=== PATIENT | male | born 1940 | race Caucasian/White ===

== ENCOUNTER → 2016-06-27 | Outpatient (REF) | payer MEDICARE, OTHER ==
[~2016-06-27] MED LIST: ALPR0.25 PO; AMLO5TAB2 PO; INFL10VL IV; LISI5TAB PO; METH2.5T PO; OMEP20CA3 PO; PRED5TAB PO; SAW500CA7 PO; TYLE325T5 PO; VITA200016 PO
[2016-06-27 10:28] LABS: INR 2.41
== END ==
LOC: M LABDRWAD 10:05
PROVIDERS: ATTEND Internal Medicine Cardiovascular Disease
DX: I48.0 Paroxysmal atrial fibrillation (principal); Z51.81 Encounter for therapeutic drug level monitoring; Z79.01 Long term (current) use of anticoagulants

== ENCOUNTER → 2016-06-27 | Outpatient (REF) | payer MEDICARE, OTHER ==
[2016-06-27 10:35] LABS: ALBUMIN 4.1 GM/DL (3.2-5.2); ALBUMIN/GLOBULIN RATIO 1.05 (1.00-1.93); BILIRUBIN,TOTAL 0.8 MG/DL (0.2-1.0); CALCIUM LEVEL 8.9 MG/DL (8.8-10.2); CREATININE FOR GFR 1.28 MG/DL (0.70-1.30); GLOMERULAR FILTRATION RATE 58.6 (>42); POTASSIUM SERUM 4.4 MEQ/L (3.5-5.1)
== END ==
LOC: M LABDRWAD 10:06
PROVIDERS: ATTEND Family Medicine
DX: E78.5 Hyperlipidemia, unspecified (principal); I48.0 Paroxysmal atrial fibrillation; Z51.81 Encounter for therapeutic drug level monitoring; Z79.01 Long term (current) use of anticoagulants

== ENCOUNTER → 2016-07-10 | Outpatient (REF) | payer MEDICARE, OTHER ==
[2016-07-10 13:02] LABS: ALT/SGPT 24 U/L (12-78); AST/SGOT 19 U/L (15-37); CREATININE FOR GFR 1.15 MG/DL (0.70-1.30); GLOMERULAR FILTRATION RATE > 60.0 (>42)
[2016-07-10 13:08] LABS: BASO % 0.4 % (0.0-1.0); EOS # 0.2 K/mm3 (0.0-0.50); EOS % 2.3 % (0.0-3.0); LYMPH # 2.2 K/mm3 (1.5-4.5); LYMPH % 32.6 % (24.0-44.0); MEAN CORPUSCULAR HEMOGLOBIN 33.4 pg (27.0-33.0); MEAN CORPUSCULAR HGB CONC 36.3 g/dl (32.0-36.5); MONO # 0.5 K/mm3 (0.0-0.8); MONO % 7.9 % (0.0-5.0); NEUTROPHILS # 3.7 K/mm3 (1.8-7.7); NEUTROPHILS % 54.2 % (36.0-66.0); RED CELL DISTRIBUTION WIDTH 13.7 % (11.5-14.5); WHITE BLOOD COUNT 6.9 K/mm3 (4.0-10.0)
== END ==
LOC: M LABDRWAD 12:20
PROVIDERS: ATTEND Physician Assistant
DX: Z51.81 Encounter for therapeutic drug level monitoring (principal); Z79.899 Other long term (current) drug therapy; L40.59 Other psoriatic arthropathy; L40.8 Other psoriasis

== ENCOUNTER → 2016-07-25 | Outpatient (REF) | payer MEDICARE, OTHER ==
[2016-07-25 09:36] LABS: MEAN CORPUSCULAR HEMOGLOBIN 32.9 pg (27.0-33.0); MEAN CORPUSCULAR HGB CONC 35.3 g/dl (32.0-36.5); RED CELL DISTRIBUTION WIDTH 15.7 % (11.5-14.5); WHITE BLOOD COUNT 5.8 K/mm3 (4.0-10.0)
[2016-07-25 09:49] LABS: INR 2.26
== END ==
LOC: M LABDRWAD 09:26
PROVIDERS: ATTEND Internal Medicine Cardiovascular Disease
DX: Z51.81 Encounter for therapeutic drug level monitoring (principal); Z79.01 Long term (current) use of anticoagulants; I48.0 Paroxysmal atrial fibrillation

== ENCOUNTER → 2016-08-22 | Outpatient (REF) | payer MEDICARE, OTHER ==
[2016-08-22 11:03] LABS: INR 2.64
== END ==
LOC: M LABDRWAD 10:29
PROVIDERS: ATTEND Internal Medicine Cardiovascular Disease
DX: Z79.01 Long term (current) use of anticoagulants (principal); I48.0 Paroxysmal atrial fibrillation

== ENCOUNTER → 2016-08-30 | Outpatient (REF) | payer MEDICARE, OTHER ==
[2016-08-30 12:50] LABS: FOLATE 18.7 NG/ML
== END ==
LOC: M LAB REF 12:09
PROVIDERS: ATTEND Family Medicine
DX: R43.0 Anosmia (principal)

== ENCOUNTER → 2016-09-04 | Outpatient (REF) | payer MEDICARE, OTHER ==
[2016-09-04 13:31] LABS: BASO % 0.4 % (0.0-1.0); EOS # 0.2 K/mm3 (0.0-0.50); EOS % 3.6 % (0.0-3.0); LYMPH # 1.9 K/mm3 (1.5-4.5); LYMPH % 41.5 % (24.0-44.0); MEAN CORPUSCULAR HEMOGLOBIN 32.5 pg (27.0-33.0); MEAN CORPUSCULAR HGB CONC 35.1 g/dl (32.0-36.5); MEAN CORPUSCULAR VOLUME 92.8 fl (80.0-96.0); MONO # 0.5 K/mm3 (0.0-0.8); MONO % 11.1 % (0.0-5.0); NEUTROPHILS # 1.8 K/mm3 (1.8-7.7); NEUTROPHILS % 40.4 % (36.0-66.0); RED CELL DISTRIBUTION WIDTH 16.5 % (11.5-14.5); WHITE BLOOD COUNT 4.5 K/mm3 (4.0-10.0)
[2016-09-04 13:45] LABS: ALBUMIN 3.8 GM/DL (3.2-5.2); ALT/SGPT 21 U/L (12-78); AST/SGOT 21 U/L (15-37); CREATININE FOR GFR 1.22 MG/DL (0.70-1.30); GLOMERULAR FILTRATION RATE > 60.0 (>42)
== END ==
LOC: M LABDRWAD 12:42
PROVIDERS: ATTEND Physician Assistant
DX: Z79.899 Other long term (current) drug therapy (principal)

== ENCOUNTER → 2016-09-18 | Outpatient (REF) | payer MEDICARE, OTHER ==
[2016-09-18 09:44] LABS: MEAN CORPUSCULAR HEMOGLOBIN 31.6 pg (27.0-33.0); MEAN CORPUSCULAR HGB CONC 34.8 g/dl (32.0-36.5); MEAN CORPUSCULAR VOLUME 90.9 fl (80.0-96.0); RED CELL DISTRIBUTION WIDTH 13.6 % (11.5-14.5); WHITE BLOOD COUNT 9.4 K/mm3 (4.0-10.0)
[2016-09-18 09:52] LABS: INR 3.39
== END ==
LOC: M LAB REF 09:33
PROVIDERS: ATTEND Internal Medicine Cardiovascular Disease
DX: Z79.01 Long term (current) use of anticoagulants (principal); I48.0 Paroxysmal atrial fibrillation

== ENCOUNTER → 2016-10-02 | Outpatient (REF) | payer MEDICARE, OTHER ==
[2016-10-02 09:38] LABS: INR 3.12
[2016-10-02 10:05] LABS: MEAN CORPUSCULAR HEMOGLOBIN 31.5 pg (27.0-33.0); MEAN CORPUSCULAR HGB CONC 35.2 g/dl (32.0-36.5); MEAN CORPUSCULAR VOLUME 89.6 fl (80.0-96.0); RED CELL DISTRIBUTION WIDTH 13.6 % (11.5-14.5); WHITE BLOOD COUNT 6.3 K/mm3 (4.0-10.0)
== END ==
LOC: M LABDRWAD 09:08
PROVIDERS: ATTEND Internal Medicine Cardiovascular Disease
DX: I48.0 Paroxysmal atrial fibrillation (principal); Z51.81 Encounter for therapeutic drug level monitoring; Z79.01 Long term (current) use of anticoagulants

== ENCOUNTER → 2016-10-02 | Outpatient (REF) | payer MEDICARE, OTHER ==
[2016-10-02 09:31] LABS: BASO % 0.1 % (0.0-1.0); EOS # 0.1 K/mm3 (0.0-0.50); LARGE UNSTAINED CELL # 0.1 K/mm3 (0.0-0.4); LYMPH # 1.7 K/mm3 (1.5-4.5); LYMPH % 25.6 % (24.0-44.0); MEAN CORPUSCULAR HEMOGLOBIN 31.5 pg (27.0-33.0); MEAN CORPUSCULAR HGB CONC 35.2 g/dl (32.0-36.5); MEAN CORPUSCULAR VOLUME 89.6 fl (80.0-96.0); MONO # 0.5 K/mm3 (0.0-0.8); MONO % 8.3 % (0.0-5.0); NEUTROPHILS % 63.1 % (36.0-66.0); PLATELET COUNT, AUTOMATED 213 k/mm3 (150-450); RED CELL DISTRIBUTION WIDTH 13.6 % (11.5-14.5); WHITE BLOOD COUNT 6.3 K/mm3 (4.0-10.0)
[2016-10-02 09:44] LABS: ALBUMIN 3.7 GM/DL (3.2-5.2); ALBUMIN/GLOBULIN RATIO 0.95 (1.00-1.93); ALKALINE PHOSPHATASE 86 U/L (45-117); ALT/SGPT 25 U/L (12-78); ANION GAP 9 MEQ/L (8-16); AST/SGOT 17 U/L (15-37); BLOOD UREA NITROGEN 17 MG/DL (7-18); CALCIUM LEVEL 8.7 MG/DL (8.8-10.2); CARBON DIOXIDE LEVEL 25 MEQ/L (21-32); CHLORIDE LEVEL 93 MEQ/L (98-107); CHOLESTEROL LEVEL 169 MG/DL (<200); CREATININE FOR GFR 1.06 MG/DL (0.70-1.30); GLOMERULAR FILTRATION RATE > 60.0 (>42); GLUCOSE, FASTING 88 MG/DL (83-110); POTASSIUM SERUM 4.9 MEQ/L (3.5-5.1); SODIUM LEVEL 127 MEQ/L (136-145); TOTAL PROTEIN 7.6 GM/DL (6.4-8.2); TRIGLYCERIDES LEVEL 79 MG/DL (<150)
== END ==
LOC: M LABDRWAD 09:10
PROVIDERS: ATTEND Family Medicine
DX: Z00.00 Encounter for general adult medical examination without abnormal findings (principal)

== ENCOUNTER → 2016-10-10 | Outpatient (REF) | payer MEDICARE, OTHER ==
[2016-10-10 11:32] LABS: INR 2.56
== END ==
LOC: M LABDRWAD 11:07
PROVIDERS: ATTEND Internal Medicine Cardiovascular Disease
DX: Z79.01 Long term (current) use of anticoagulants (principal); I48.0 Paroxysmal atrial fibrillation

== ENCOUNTER → 2016-10-17 | Outpatient (REF) | payer MEDICARE, OTHER ==
[2016-10-17 12:59] LABS: INR 2.68
== END ==
LOC: M LAB REF 12:21
PROVIDERS: ATTEND Internal Medicine Cardiovascular Disease
DX: Z79.01 Long term (current) use of anticoagulants (principal)

== ENCOUNTER → 2016-11-14 | Outpatient (REF) | payer MEDICARE, OTHER | LOC: M LABDRWAD 12:14 | PROVIDERS: ATTEND Family Medicine | DX: Z00.00 Encounter for general adult medical examination without abnormal findings (principal); Z51.81 Encounter for therapeutic drug level monitoring; Z79.01 Long term (current) use of anticoagulants; I48.0 Paroxysmal atrial fibrillation ==

== ENCOUNTER → 2016-11-14 | Outpatient (REF) | payer MEDICARE, OTHER ==
[2016-11-14 12:49] LABS: INR 1.84
== END ==
LOC: M LABDRWAD 12:13
PROVIDERS: ATTEND Internal Medicine Cardiovascular Disease
DX: Z51.81 Encounter for therapeutic drug level monitoring (principal); Z79.01 Long term (current) use of anticoagulants; I48.0 Paroxysmal atrial fibrillation

== ENCOUNTER → 2016-11-21 | Outpatient (REF) | payer MEDICARE, OTHER ==
[2016-11-21 13:39] LABS: INR 2.29
== END ==
LOC: M LAB REF 12:19
PROVIDERS: ATTEND Internal Medicine Cardiovascular Disease
DX: I48.0 Paroxysmal atrial fibrillation (principal); Z79.01 Long term (current) use of anticoagulants

== ENCOUNTER → 2016-12-03 | Outpatient (REF) | payer MEDICARE, OTHER ==
[2016-12-03 12:59] LABS: BASO % 0.3 % (0.0-1.0); EOS # 0.1 K/mm3 (0.0-0.50); EOS % 2.6 % (0.0-3.0); LYMPH # 1.7 K/mm3 (1.5-4.5); LYMPH % 34.5 % (24.0-44.0); MEAN CORPUSCULAR HEMOGLOBIN 32.6 pg (27.0-33.0); MEAN CORPUSCULAR HGB CONC 35.8 g/dl (32.0-36.5); MEAN CORPUSCULAR VOLUME 91.1 fl (80.0-96.0); MONO # 0.5 K/mm3 (0.0-0.8); MONO % 11.4 % (0.0-5.0); NEUTROPHILS # 2.2 K/mm3 (1.8-7.7); NEUTROPHILS % 49.1 % (36.0-66.0); RED CELL DISTRIBUTION WIDTH 13.7 % (11.5-14.5); WHITE BLOOD COUNT 4.5 K/mm3 (4.0-10.0)
[2016-12-03 14:51] LABS: ALBUMIN 3.8 GM/DL (3.2-5.2); ALT/SGPT 28 U/L (12-78); AST/SGOT 24 U/L (15-37); CREATININE FOR GFR 1.34 MG/DL (0.70-1.30); GLOMERULAR FILTRATION RATE 55.5 (>42)
== END ==
LOC: M LABDRWAD 12:14
PROVIDERS: ATTEND Physician Assistant
DX: Z79.899 Other long term (current) drug therapy (principal)

== ENCOUNTER → 2017-01-09 | Outpatient (REF) | payer MEDICARE, OTHER ==
[~2017-01-09] MED LIST changes: +CART180C3 PO; +FLEC1TAB; +WARF-23 PO
[2017-01-09 12:59] LABS: VITAMIN B12 LEVEL 553 PG/ML (247-911)
[2017-01-09 13:04] LABS: ALBUMIN/GLOBULIN RATIO 1.11 (1.00-1.93); ALKALINE PHOSPHATASE 95 U/L (45-117); ALT/SGPT 29 U/L (12-78); ANION GAP 9 MEQ/L (8-16); AST/SGOT 25 U/L (15-37); BILIRUBIN,TOTAL 0.8 MG/DL (0.2-1.0); BLOOD UREA NITROGEN 13 MG/DL (7-18); CALCIUM LEVEL 9.3 MG/DL (8.8-10.2); CARBON DIOXIDE LEVEL 25 MEQ/L (21-32); CHLORIDE LEVEL 101 MEQ/L (98-107); CHOLESTEROL LEVEL 157 MG/DL (<200); CREATININE FOR GFR 1.19 MG/DL (0.70-1.30); GLOMERULAR FILTRATION RATE > 60.0 (>42); GLUCOSE, FASTING 87 MG/DL (83-110); POTASSIUM SERUM 4.7 MEQ/L (3.5-5.1); SODIUM LEVEL 135 MEQ/L (136-145); TOTAL PROTEIN 7.6 GM/DL (6.4-8.2); TRIGLYCERIDES LEVEL 106 MG/DL (<150)
[2017-01-11 00:07] LABS: Lyme Disease IgG/IgM Antibodie <0.91 ISR (0.00-0.90); Lyme Disease IgM Ab Quantitati <0.80 index (0.00-0.79)
== END ==
LOC: M LABDRWAD 12:07
PROVIDERS: ATTEND Family Medicine
DX: E78.5 Hyperlipidemia, unspecified (principal)

== ENCOUNTER → 2017-01-29 | Outpatient (REF) | payer MEDICARE, OTHER ==
[2017-01-29 13:29] LABS: BASO % 0.4 % (0.0-1.0); EOS # 0.2 K/mm3 (0.0-0.50); EOS % 5.5 % (0.0-3.0); LYMPH # 1.8 K/mm3 (1.5-4.5); LYMPH % 39.8 % (24.0-44.0); MEAN CORPUSCULAR HEMOGLOBIN 31.9 pg (27.0-33.0); MEAN CORPUSCULAR HGB CONC 34.8 g/dl (32.0-36.5); MEAN CORPUSCULAR VOLUME 91.7 fl (80.0-96.0); MONO # 0.4 K/mm3 (0.0-0.8); MONO % 10.1 % (0.0-5.0); NEUTROPHILS # 1.8 K/mm3 (1.8-7.7); NEUTROPHILS % 41.9 % (36.0-66.0); RED CELL DISTRIBUTION WIDTH 15.1 % (11.5-14.5); WHITE BLOOD COUNT 4.3 K/mm3 (4.0-10.0)
[2017-01-29 15:51] LABS: ALBUMIN 3.8 GM/DL (3.2-5.2); ALT/SGPT 22 U/L (12-78); AST/SGOT 18 U/L (15-37); CREATININE FOR GFR 1.32 MG/DL (0.70-1.30); GLOMERULAR FILTRATION RATE 56.4 (>42)
== END ==
LOC: M LAB REF 12:25
PROVIDERS: ATTEND Physician Assistant
DX: L40.59 Other psoriatic arthropathy (principal); L40.8 Other psoriasis; Z79.899 Other long term (current) drug therapy

== ENCOUNTER 2017-03-06 18:01 | Emergency (ER) | payer MEDICARE, OTHER ==
[~2017-03-06] VITALS: Ht 182.9 cm; Wt 96.4 kg
[~2017-03-06 18:01] MED LIST changes: -CART180C3 PO; -FLEC1TAB; -WARF-23 PO
[2017-03-06 18:02] VITALS: BP 167/77
[2017-03-06] MEDS ORDERED: FLEC1TAB (18:16)
[2017-03-06] MEDS ORDERED: CART180C3 PO (18:16)
[2017-03-06] MEDS ORDERED: WARF-23 PO (18:16)
== END 2017-03-06 19:06 | disposition left against medical advice (07) ==
LOC: M ED 18:01
DX: R10.9 Unspecified abdominal pain (principal); Z53.21 Procedure and treatment not carried out due to patient leaving prior to being seen by health care provider

== ENCOUNTER → 2017-05-27 | Outpatient (REF) | payer MEDICARE, OTHER ==
[~2017-05-27] MED LIST changes: +CART180C3 PO; +FLEC1TAB; +WARF-23 PO
[2017-05-27 13:37] LABS: BASO % 0.4 % (0.0-1.0); EOS # 0.3 10^3/uL (0.0-0.50); EOS % 3.6 % (0.0-3.0); IMMATURE GRANULOCYTE % 0.4 % (0-0); LYMPH # 2.3 10^3/uL (1.5-4.5); LYMPH % 25.8 % (24.0-44.0); MEAN CORPUSCULAR HEMOGLOBIN 28.7 pg (27.0-33.0); MEAN CORPUSCULAR HGB CONC 33.2 g/dl (32.0-36.5); MEAN CORPUSCULAR VOLUME 86.4 fl (80.0-96.0); MONO # 0.9 10^3/uL (0.0-0.8); MONO % 9.9 % (0.0-5.0); NEUTROPHILS # 5.4 10^3/uL (1.8-7.7); NEUTROPHILS % 59.9 % (36.0-66.0); PLATELET COUNT, AUTOMATED 314 10^3/uL (150-450); RED CELL DISTRIBUTION WIDTH 13.8 % (11.5-14.5); WHITE BLOOD COUNT 9.1 10^3/uL (4.0-10.0)
[2017-05-27 13:56] LABS: ALBUMIN 3.9 GM/DL (3.2-5.2); ALT/SGPT 20 U/L (12-78); AST/SGOT 19 U/L (7-37); CREATININE FOR GFR 1.17 MG/DL (0.70-1.30); GLOMERULAR FILTRATION RATE > 60.0 (>42)
[2017-05-27 14:05] LABS: ERYTHROCYTE SEDIMENTATION RATE 26 mm/hr (0-20)
== END ==
LOC: M LABDRWAD 12:29
PROVIDERS: ATTEND Physician Assistant
DX: Z51.81 Encounter for therapeutic drug level monitoring (principal); Z79.899 Other long term (current) drug therapy; Z79.52 Long term (current) use of systemic steroids; L40.59 Other psoriatic arthropathy

== ENCOUNTER → 2017-05-30 | Outpatient (REF) | payer MEDICARE, OTHER ==
[2017-05-30 18:15] LABS: MICROSCOPIC INDICATED? MAN NO (NO)
== END ==
LOC: M LAB REF 17:07
PROVIDERS: ATTEND Physician Assistant
DX: R82.90 Unspecified abnormal findings in urine (principal)

== ENCOUNTER → 2017-07-25 | Outpatient (REF) | payer MEDICARE, OTHER ==
[2017-07-25 15:49] LABS: BASO % 0.4 % (0.0-1.0); EOS # 0.4 10^3/uL (0.0-0.50); EOS % 4.7 % (0.0-3.0); HEMATOCRIT 44.2 % (42.0-52.0); HEMOGLOBIN 14.4 g/dl (14.0-18.0); IMMATURE GRANULOCYTE % 0.3 % (0-0); LYMPH # 2.3 10^3/uL (1.5-4.5); LYMPH % 29.9 % (24.0-44.0); MEAN CORPUSCULAR HEMOGLOBIN 28.6 pg (27.0-33.0); MEAN CORPUSCULAR HGB CONC 32.6 g/dl (32.0-36.5); MEAN CORPUSCULAR VOLUME 87.9 fl (80.0-96.0); MONO # 0.7 10^3/uL (0.0-0.8); MONO % 9.7 % (0.0-5.0); NEUTROPHILS # 4.2 10^3/uL (1.8-7.7); PLATELET COUNT, AUTOMATED 293 10^3/uL (150-450); RED BLOOD COUNT 5.03 10^6/uL (4.30-6.10); RED CELL DISTRIBUTION WIDTH 14.2 % (11.5-14.5); WHITE BLOOD COUNT 7.6 10^3/uL (4.0-10.0)
[2017-07-25 15:54] LABS: ALBUMIN 4.1 GM/DL (3.2-5.2); ALT/SGPT 24 U/L (12-78); AST/SGOT 23 U/L (7-37); C REACTIVE PROTEIN QUANTITATIV < 0.30 MG/DL (0.00-0.30); CREATININE FOR GFR 1.32 MG/DL (0.70-1.30); GLOMERULAR FILTRATION RATE 56.3 (>42)
[2017-07-25 17:18] LABS: ERYTHROCYTE SEDIMENTATION RATE 8 mm/hr (0-20)
== END ==
LOC: M LABDRWAD 13:44
DX: Z79.899 Other long term (current) drug therapy (principal)
CPT/HCPCS: 84460

== ENCOUNTER → 2017-09-27 | Outpatient (REF) | payer MEDICARE, OTHER ==
[2017-09-27 12:39] LABS: BASO % 0.4 % (0.0-1.0); EOS # 0.4 10^3/uL (0.0-0.50); EOS % 4.8 % (0.0-3.0); HEMATOCRIT 39.3 % (42.0-52.0); HEMOGLOBIN 14.3 g/dl (13.5-17.5); IMMATURE GRANULOCYTE % 0.3 % (0-3.0); LYMPH # 2.6 10^3/uL (1.5-4.5); LYMPH % 34.4 % (24.0-44.0); MEAN CORPUSCULAR HEMOGLOBIN 32.5 pg (27.0-33.0); MEAN CORPUSCULAR HGB CONC 36.4 g/dl (32.0-36.5); MEAN CORPUSCULAR VOLUME 89.3 fl (80.0-96.0); MONO # 0.8 10^3/uL (0.0-0.8); MONO % 10.2 % (0.0-5.0); NEUTROPHILS # 3.8 10^3/uL (1.8-7.7); NEUTROPHILS % 49.9 % (36.0-66.0); PLATELET COUNT, AUTOMATED 296 10^3/uL (150-450); RED CELL DISTRIBUTION WIDTH 14.5 % (11.5-14.5); WHITE BLOOD COUNT 7.5 10^3/uL (4.0-10.0)
[2017-09-27 13:15] LABS: ALBUMIN 3.9 GM/DL (3.2-5.2); ALT/SGPT 24 U/L (12-78); AST/SGOT 20 U/L (7-37); C REACTIVE PROTEIN QUANTITATIV < 0.30 MG/DL (0.00-0.30); CREATININE FOR GFR 1.27 MG/DL (0.70-1.30); GLOMERULAR FILTRATION RATE 58.9 (>42)
[2017-09-27 14:07] LABS: ERYTHROCYTE SEDIMENTATION RATE 8 mm/hr (0-20)
== END ==
LOC: M LABDRWAD 12:13
DX: L40.59 Other psoriatic arthropathy (principal); Z79.899 Other long term (current) drug therapy; Z79.52 Long term (current) use of systemic steroids
CPT/HCPCS: 84460

== ENCOUNTER → 2017-10-28 | Outpatient (REF) | payer MEDICARE, OTHER ==
[2017-10-28 13:18] LABS: BASO % 0.5 % (0.0-1.0); EOS # 0.3 10^3/uL (0.0-0.50); EOS % 4.2 % (0.0-3.0); HEMATOCRIT 39.7 % (42.0-52.0); HEMOGLOBIN 14.5 g/dl (13.5-17.5); IMMATURE GRANULOCYTE % 0.3 % (0-3.0); LYMPH # 2.4 10^3/uL (1.5-4.5); MEAN CORPUSCULAR HEMOGLOBIN 33.4 pg (27.0-33.0); MEAN CORPUSCULAR HGB CONC 36.5 g/dl (32.0-36.5); MEAN CORPUSCULAR VOLUME 91.5 fl (80.0-96.0); MONO # 0.7 10^3/uL (0.0-0.8); MONO % 10.4 % (0.0-5.0); NEUTROPHILS # 3.1 10^3/uL (1.8-7.7); NEUTROPHILS % 47.6 % (36.0-66.0); PLATELET COUNT, AUTOMATED 279 10^3/uL (150-450); RED BLOOD COUNT 4.34 10^6/uL (4.30-6.10); RED CELL DISTRIBUTION WIDTH 14.4 % (11.5-14.5); WHITE BLOOD COUNT 6.4 10^3/uL (4.0-10.0)
[2017-10-28 14:09] LABS: ALBUMIN/GLOBULIN RATIO 0.93 (1.00-1.93); ALKALINE PHOSPHATASE 100 U/L (45-117); ALT/SGPT 24 U/L (12-78); ANION GAP 7 MEQ/L (8-16); AST/SGOT 22 U/L (7-37); BILIRUBIN,TOTAL 0.7 MG/DL (0.2-1.0); BLOOD UREA NITROGEN 19 MG/DL (7-18); CALCIUM LEVEL 9.2 MG/DL (8.8-10.2); CARBON DIOXIDE LEVEL 25 MEQ/L (21-32); CHLORIDE LEVEL 104 MEQ/L (98-107); CHOLESTEROL LEVEL 171 MG/DL (<200); CREATININE FOR GFR 1.38 MG/DL (0.70-1.30); GLOMERULAR FILTRATION RATE 53.5 (>42); GLUCOSE, FASTING 92 MG/DL (70-100); HDL CHOLESTEROL 41 MG/DL (>40); LDL CHOLESTEROL 113.4 MG/DL (<100); NON-HDL-C 130 MG/DL; SODIUM LEVEL 136 MEQ/L (136-145); TOTAL PROTEIN 8.3 GM/DL (6.4-8.2); TRIGLYCERIDES LEVEL 83 MG/DL (<150)
[2017-10-30 00:07] LABS: PSA TOTAL 0.7 ng/mL (0.0-4.0)
== END ==
LOC: M LAB REF 12:33
DX: M06.00 Rheumatoid arthritis without rheumatoid factor, unspecified site (principal); I10 Essential (primary) hypertension; R35.0 Frequency of micturition; L40.8 Other psoriasis; I48.3 Typical atrial flutter
CPT/HCPCS: 84443

== ENCOUNTER 2017-11-09 06:21 | Emergency (ER) | payer MEDICARE, OTHER ==
[2017-11-09 06:52] LABS: BASO % 0.1 % (0.0-1.0); EOS % 0.1 % (0.0-3.0); HEMOGLOBIN 15.6 g/dl (13.5-17.5); IMMATURE GRANULOCYTE % 0.9 % (0-3.0); LYMPH # 2.9 10^3/uL (1.5-4.5); LYMPH % 19.5 % (24.0-44.0); MEAN CORPUSCULAR HEMOGLOBIN 29.8 pg (27.0-33.0); MEAN CORPUSCULAR HGB CONC 33.9 g/dl (32.0-36.5); MEAN CORPUSCULAR VOLUME 87.8 fl (80.0-96.0); MONO % 6.7 % (0.0-5.0); NEUTROPHILS # 10.9 10^3/uL (1.8-7.7); NEUTROPHILS % 72.7 % (36.0-66.0); PLATELET COUNT, AUTOMATED 392 10^3/uL (150-450); RED BLOOD COUNT 5.24 10^6/uL (4.30-6.10); RED CELL DISTRIBUTION WIDTH 14.2 % (11.5-14.5)
[2017-11-09 07:08] LABS: INR 3.14; PROTHROMBIN TIME 33.7 SECONDS (12.4-14.5)
[2017-11-09 07:09] LABS: PARTIAL THROMBOPLASTIN TIME 49.1 SECONDS (26.8-37.9)
[2017-11-09] MEDS: NS 500 ML IV (07:19)
[2017-11-09 07:26] LABS: ALBUMIN 3.8 GM/DL (3.2-5.2); ALBUMIN/GLOBULIN RATIO 0.83 (1.00-1.93); ALKALINE PHOSPHATASE 109 U/L (45-117); ALT/SGPT 47 U/L (12-78); ANION GAP 9 MEQ/L (8-16); AST/SGOT 22 U/L (7-37); BILIRUBIN,DIRECT 0.2 MG/DL (0.0-0.2); BILIRUBIN,TOTAL 0.5 MG/DL (0.2-1.0); BLOOD UREA NITROGEN 30 MG/DL (7-18); CALCIUM LEVEL 9.2 MG/DL (8.8-10.2); CARBON DIOXIDE LEVEL 24 MEQ/L (21-32); CHLORIDE LEVEL 99 MEQ/L (98-107); CPK CREATINE PHOSPHOKINASE 48 U/L (39-308); CREATININE FOR GFR 1.27 MG/DL (0.70-1.30); GLOMERULAR FILTRATION RATE 58.9 (>42); GLUCOSE, FASTING 147 MG/DL (70-100); MAGNESIUM LEVEL 1.9 MG/DL (1.8-2.4); PHOSPHORUS LEVEL 3.3 MG/DL (2.5-4.9); POTASSIUM SERUM 4.3 MEQ/L (3.5-5.1); SODIUM LEVEL 132 MEQ/L (136-145); TOTAL PROTEIN 8.4 GM/DL (6.4-8.2); TROPONIN I < 0.02 NG/ML (< 0.10)
[2017-11-09 07:32] LABS: CK-MB VALUE MASS 2.1 NG/ML (<3.6); FREE T4 1.14 NG/DL (0.76-1.46); MB/CK RELATIVE INDEX 4.37 (< OR =4)
[2017-11-09] MEDS: DIGOXIN INJ 0.5 MG/2 ML AMP (J1160) IV ×2 (08:09→09:07)
[2017-11-09] MEDS: ALPRAZolam 0.5 MG TAB PO (09:19)
[2017-11-09] MEDS: FLECAINIDE 50MG TABLET PO (10:26)
== END 2017-11-09 15:07 | disposition home or self-care (01) ==
LOC: M ED 06:21
DX: I48.92 Unspecified atrial flutter (principal); R94.31 Abnormal electrocardiogram [ECG] [EKG]; I48.91 Unspecified atrial fibrillation; I10 Essential (primary) hypertension; M06.9 Rheumatoid arthritis, unspecified; F10.99 Alcohol use, unspecified with unspecified alcohol-induced disorder; Z79.899 Other long term (current) drug therapy; Z79.01 Long term (current) use of anticoagulants; Z79.52 Long term (current) use of systemic steroids
CPT/HCPCS: J1160

== ENCOUNTER → 2017-11-22 | Outpatient (CLI) | payer MEDICARE, OTHER ==
[2017-11-22 12:31] LABS: BASO % 0.2 % (0.0-1.0); EOS # 0.2 10^3/uL (0.0-0.50); EOS % 2.6 % (0.0-3.0); HEMATOCRIT 38.5 % (42.0-52.0); IMMATURE GRANULOCYTE % 0.3 % (0-3.0); LYMPH # 2.4 10^3/uL (1.5-4.5); MEAN CORPUSCULAR HEMOGLOBIN 32.7 pg (27.0-33.0); MEAN CORPUSCULAR HGB CONC 36.4 g/dl (32.0-36.5); MONO % 10.5 % (0.0-5.0); NEUTROPHILS # 5.6 10^3/uL (1.8-7.7); NEUTROPHILS % 60.4 % (36.0-66.0); PLATELET COUNT, AUTOMATED 284 10^3/uL (150-450); RED BLOOD COUNT 4.28 10^6/uL (4.30-6.10); WHITE BLOOD COUNT 9.2 10^3/uL (4.0-10.0)
[2017-11-22 12:47] LABS: ALBUMIN 3.5 GM/DL (3.2-5.2); ALT/SGPT 25 U/L (12-78); AST/SGOT 17 U/L (7-37); C REACTIVE PROTEIN QUANTITATIV < 0.30 MG/DL (0.00-0.30); CREATININE FOR GFR 1.24 MG/DL (0.70-1.30); GLOMERULAR FILTRATION RATE > 60.0 (>42)
[2017-11-22 12:49] LABS: ERYTHROCYTE SEDIMENTATION RATE 17 mm/hr (0-20)
== END ==
LOC: M ADAMS 10:10
DX: Z79.899 Other long term (current) drug therapy (principal)
CPT/HCPCS: 84460

== ENCOUNTER → 2018-01-20 | Outpatient (REF) | payer MEDICARE, OTHER ==
[2018-01-20 12:59] LABS: BASO % 0.2 % (0.0-1.0); EOS # 0.3 10^3/uL (0.0-0.50); EOS % 2.4 % (0.0-3.0); HEMATOCRIT 41.9 % (42.0-52.0); HEMOGLOBIN 15.6 g/dl (13.5-17.5); IMMATURE GRANULOCYTE # 0.1 10^3/uL (0-0); IMMATURE GRANULOCYTE % 0.8 % (0-3.0); LYMPH # 1.5 10^3/uL (1.5-4.5); LYMPH % 10.3 % (24.0-44.0); MEAN CORPUSCULAR HEMOGLOBIN 33.5 pg (27.0-33.0); MEAN CORPUSCULAR HGB CONC 37.2 g/dl (32.0-36.5); MEAN CORPUSCULAR VOLUME 89.9 fl (80.0-96.0); MONO # 1.1 10^3/uL (0.0-0.8); MONO % 7.5 % (0.0-5.0); NEUTROPHILS # 11.2 10^3/uL (1.8-7.7); NEUTROPHILS % 78.8 % (36.0-66.0); PLATELET COUNT, AUTOMATED 384 10^3/uL (150-450); RED BLOOD COUNT 4.66 10^6/uL (4.30-6.10); RED CELL DISTRIBUTION WIDTH 14.3 % (11.5-14.5); WHITE BLOOD COUNT 14.2 10^3/uL (4.0-10.0)
[2018-01-20 13:08] LABS: ALBUMIN 3.6 GM/DL (3.2-5.2); ALT/SGPT 33 U/L (12-78); AST/SGOT 14 U/L (7-37); C REACTIVE PROTEIN QUANTITATIV < 0.30 MG/DL (0.00-0.30); CREATININE FOR GFR 1.14 MG/DL (0.70-1.30); GLOMERULAR FILTRATION RATE > 60.0 (>42)
[2018-01-20 13:18] LABS: ERYTHROCYTE SEDIMENTATION RATE 12 mm/hr (0-20)
== END ==
LOC: M LABDRWAD 12:33
DX: Z79.899 Other long term (current) drug therapy (principal); L40.59 Other psoriatic arthropathy; Z79.52 Long term (current) use of systemic steroids
CPT/HCPCS: 84460

== ENCOUNTER 2018-02-25 22:12 | Emergency (ER) | payer MEDICARE, OTHER | END 2018-02-25 23:09 | disposition left against medical advice (07) | LOC: M ED 22:12 | DX: Z53.29 Procedure and treatment not carried out because of patient's decision for other reasons (principal) ==

== ENCOUNTER → 2018-05-05 | Outpatient (REF) | payer MEDICARE, OTHER | LOC: M LAB REF 17:38 | DX: R10.30 Lower abdominal pain, unspecified (principal) | CPT/HCPCS: 87186 ==

== ENCOUNTER → 2018-05-22 | Outpatient (CLI) | payer MEDICARE, OTHER ==
[2018-05-22 19:56] LABS: ALBUMIN 3.6 GM/DL (3.2-5.2); ALT/SGPT 31 U/L (12-78); AST/SGOT 16 U/L (7-37); C REACTIVE PROTEIN QUANTITATIV < 0.30 MG/DL (0.00-0.30); GLOMERULAR FILTRATION RATE > 60.0 (>42)
[2018-05-22 20:00] LABS: BASO % 0.4 % (0.0-1.0); EOS # 0.1 10^3/uL (0.0-0.50); EOS % 0.8 % (0.0-3.0); HEMATOCRIT 42.4 % (42.0-52.0); HEMOGLOBIN 14.6 g/dl (13.5-17.5); IMMATURE GRANULOCYTE # 0.1 10^3/uL (0-0); IMMATURE GRANULOCYTE % 0.7 % (0-3.0); LYMPH # 2.1 10^3/uL (1.5-4.5); LYMPH % 19.1 % (24.0-44.0); MEAN CORPUSCULAR HEMOGLOBIN 31.1 pg (27.0-33.0); MEAN CORPUSCULAR HGB CONC 34.4 g/dl (32.0-36.5); MEAN CORPUSCULAR VOLUME 90.2 fl (80.0-96.0); MONO # 0.8 10^3/uL (0.0-0.8); MONO % 7.7 % (0.0-5.0); NEUTROPHILS # 7.7 10^3/uL (1.8-7.7); NEUTROPHILS % 71.3 % (36.0-66.0); PLATELET COUNT, AUTOMATED 295 10^3/uL (150-450); RED CELL DISTRIBUTION WIDTH 14.6 % (11.5-14.5); WHITE BLOOD COUNT 10.8 10^3/uL (4.0-10.0)
[2018-05-22 20:11] LABS: ERYTHROCYTE SEDIMENTATION RATE 13 mm/hr (0-20)
== END ==
LOC: M LABDRWAD 13:12
DX: L40.50 Arthropathic psoriasis, unspecified (principal); R79.89 Other specified abnormal findings of blood chemistry; Z79.899 Other long term (current) drug therapy
CPT/HCPCS: 84460

== ENCOUNTER → 2018-08-29 | Outpatient (REF) | payer MEDICARE, OTHER ==
[~2018-08-29] MED LIST changes: +CARD180C4 PO; +CARD60TA3 PO; +CLOB0.0548; +DILT180C43; +FLUTISP; +Hydrocort; +METH4PACK; +OMEP40CA2; +TORS5TAB2
[2018-08-29 12:36] LABS: BASO % 0.2 % (0.0-1.0); EOS # 0.2 10^3/uL (0.0-0.50); EOS % 1.8 % (0.0-3.0); HEMATOCRIT 39.4 % (42.0-52.0); HEMOGLOBIN 14.3 g/dl (13.5-17.5); LYMPH # 1.9 10^3/uL (1.5-4.5); LYMPH % 21.4 % (24.0-44.0); MEAN CORPUSCULAR HEMOGLOBIN 33.7 pg (27.0-33.0); MEAN CORPUSCULAR HGB CONC 36.3 g/dl (32.0-36.5); MEAN CORPUSCULAR VOLUME 92.9 fl (80.0-96.0); MONO # 0.7 10^3/uL (0.0-0.8); MONO % 8.4 % (0.0-5.0); NEUTROPHILS % 67.9 % (36.0-66.0); PLATELET COUNT, AUTOMATED 250 10^3/uL (150-450); RED BLOOD COUNT 4.24 10^6/uL (4.30-6.10); WHITE BLOOD COUNT 8.8 10^3/uL (4.0-10.0)
[2018-08-29 12:48] LABS: INR 2.8; PROTHROMBIN TIME 30.1 SECONDS (12.1-14.4)
[2018-08-29 12:49] LABS: PARTIAL THROMBOPLASTIN TIME 56.9 SECONDS (25.4-37.6)
[2018-08-29 14:38] LABS: ALT/SGPT 38 U/L (12-78); BLOOD UREA NITROGEN 11 MG/DL (7-18); C REACTIVE PROTEIN QUANTITATIV < 0.30 MG/DL (0.00-0.30); CALCIUM LEVEL 9.1 MG/DL (8.8-10.2); CARBON DIOXIDE LEVEL 26 MEQ/L (21-32); CHLORIDE LEVEL 95 MEQ/L (98-107); GLOMERULAR FILTRATION RATE > 60.0 (>42); GLUCOSE, FASTING 86 MG/DL (70-100); LIPASE 126 U/L (73-393); POTASSIUM SERUM 5.5 MEQ/L (3.5-5.1); SODIUM LEVEL 127 MEQ/L (136-145); TOTAL PROTEIN 7.9 GM/DL (6.4-8.2)
== END ==
LOC: M LABDRWAD 12:00
PROVIDERS: ATTEND Physician Assistant
DX: R10.32 Left lower quadrant pain (principal)

== ENCOUNTER → 2018-10-14 | Outpatient (REF) | payer MEDICARE, OTHER ==
[2018-10-14 15:20] LABS: BASO % 0.4 % (0.0-1.0); EOS # 0.1 10^3/uL (0.0-0.50); EOS % 1.5 % (0.0-3.0); HEMATOCRIT 37.5 % (42.0-52.0); HEMOGLOBIN 13.7 g/dl (13.5-17.5); LYMPH # 1.9 10^3/uL (1.5-4.5); LYMPH % 21.8 % (24.0-44.0); MEAN CORPUSCULAR HGB CONC 36.5 g/dl (32.0-36.5); MEAN CORPUSCULAR VOLUME 93.1 fl (80.0-96.0); MONO # 1.1 10^3/uL (0.0-0.8); MONO % 12.7 % (0.0-5.0); NEUTROPHILS # 5.4 10^3/uL (1.8-7.7); NEUTROPHILS % 63.1 % (36.0-66.0); PLATELET COUNT, AUTOMATED 292 10^3/uL (150-450); RED BLOOD COUNT 4.03 10^6/uL (4.30-6.10); WHITE BLOOD COUNT 8.5 10^3/uL (4.0-10.0)
[2018-10-14 16:25] LABS: ERYTHROCYTE SEDIMENTATION RATE 17 mm/hr (0-20)
[2018-10-14 16:53] LABS: ALBUMIN 3.8 GM/DL (3.2-5.2); ALT/SGPT 36 U/L (12-78); C REACTIVE PROTEIN QUANTITATIV < 0.30 MG/DL (0.00-0.30); CREATININE FOR GFR 1.07 MG/DL (0.70-1.30); GLOMERULAR FILTRATION RATE > 60.0 (>42)
== END ==
LOC: M LAB REF 13:50
PROVIDERS: ATTEND Physician Assistant
DX: Z79.899 Other long term (current) drug therapy (principal)

== ENCOUNTER → 2018-11-13 | Outpatient (REF) | payer MEDICARE, OTHER ==
[2018-11-13 12:58] LABS: ALBUMIN 3.9 GM/DL (3.2-5.2); ALT/SGPT 41 U/L (12-78); BILIRUBIN,TOTAL 0.6 MG/DL (0.2-1.0); BLOOD UREA NITROGEN 18 MG/DL (7-18); CALCIUM LEVEL 9.6 MG/DL (8.8-10.2); CARBON DIOXIDE LEVEL 26 MEQ/L (21-32); CHLORIDE LEVEL 98 MEQ/L (98-107); CHOLESTEROL LEVEL 212 MG/DL (<200); CHOLESTEROL RISK RATIO 3.419 (<5); CREATININE FOR GFR 0.93 MG/DL (0.70-1.30); GLOMERULAR FILTRATION RATE > 60.0 (>42); GLUCOSE, FASTING 74 MG/DL (70-100); HDL CHOLESTEROL 62 MG/DL (>40); LDL CHOLESTEROL 127 MG/DL (<100); NON-HDL-C 150 MG/DL; POTASSIUM SERUM 4.4 MEQ/L (3.5-5.1); SODIUM LEVEL 132 MEQ/L (136-145); TOTAL PROTEIN 7.4 GM/DL (6.4-8.2); TRIGLYCERIDES LEVEL 113 MG/DL (<150)
[2018-11-13 13:11] LABS: BASO % 0.3 % (0.0-1.0); EOS # 0.1 10^3/uL (0.0-0.50); EOS % 0.8 % (0.0-3.0); HEMATOCRIT 43.7 % (42.0-52.0); HEMOGLOBIN 14.4 g/dl (13.5-17.5); LYMPH # 2.6 10^3/uL (1.5-4.5); LYMPH % 22.6 % (24.0-44.0); MEAN CORPUSCULAR HEMOGLOBIN 30.3 pg (27.0-33.0); MONO % 8.9 % (0.0-5.0); NEUTROPHILS # 7.7 10^3/uL (1.8-7.7); PLATELET COUNT, AUTOMATED 206 10^3/uL (150-450); RED BLOOD COUNT 4.75 10^6/uL (4.30-6.10); WHITE BLOOD COUNT 11.5 10^3/uL (4.0-10.0)
== END ==
LOC: M LABDRWAD 12:10
PROVIDERS: ATTEND Family Medicine
DX: I10 Essential (primary) hypertension (principal)

== ENCOUNTER → 2019-01-13 | Outpatient (REF) | payer MEDICARE, OTHER ==
[2019-01-13 13:42] LABS: BASO % 0.2 % (0.0-1.0); EOS % 0.2 % (0.0-3.0); HEMATOCRIT 41.9 % (42.0-52.0); HEMOGLOBIN 14.7 g/dl (13.5-17.5); LYMPH % 9.3 % (24.0-44.0); MEAN CORPUSCULAR HEMOGLOBIN 33.8 pg (27.0-33.0); MEAN CORPUSCULAR HGB CONC 35.1 g/dl (32.0-36.5); MEAN CORPUSCULAR VOLUME 96.3 fl (80.0-96.0); MONO % 8.6 % (0.0-5.0); NEUTROPHILS # 9.1 10^3/uL (1.8-7.7); NEUTROPHILS % 80.9 % (36.0-66.0); PLATELET COUNT, AUTOMATED 303 10^3/uL (150-450); RED BLOOD COUNT 4.35 10^6/uL (4.30-6.10); WHITE BLOOD COUNT 11.2 10^3/uL (4.0-10.0)
[2019-01-13 13:54] LABS: ALBUMIN 3.6 GM/DL (3.2-5.2); ALT/SGPT 40 U/L (12-78); C REACTIVE PROTEIN QUANTITATIV < 0.30 MG/DL (0.00-0.30); CREATININE FOR GFR 1.03 MG/DL (0.70-1.30); GLOMERULAR FILTRATION RATE > 60.0 (>42)
[2019-01-13 14:16] LABS: ERYTHROCYTE SEDIMENTATION RATE 25 mm/hr (0-20)
== END ==
LOC: M LABDRWAD 12:33
PROVIDERS: ATTEND Physician Assistant
DX: L40.50 Arthropathic psoriasis, unspecified (principal)

== ENCOUNTER → 2019-03-13 | Outpatient (REF) | payer MEDICARE, OTHER | LOC: M LAB REF 16:57 | PROVIDERS: ATTEND Physician Assistant | DX: L02.414 Cutaneous abscess of left upper limb (principal) ==

== ENCOUNTER → 2019-03-19 | Outpatient (REF) | payer MEDICARE, OTHER ==
[2019-03-19 13:13] LABS: BASO % 0.4 % (0.0-1.0); EOS # 0.1 10^3/uL (0.0-0.5); EOS % 0.7 % (0.0-3.0); HEMOGLOBIN 14.6 g/dl (13.5-17.5); LYMPH # 1.4 10^3/uL (1.5-5.0); LYMPH % 14.6 % (24.0-44.0); MEAN CORPUSCULAR HEMOGLOBIN 34.1 pg (27.0-33.0); MEAN CORPUSCULAR HGB CONC 35.6 g/dl (32.0-36.5); MEAN CORPUSCULAR VOLUME 95.8 fl (80.0-96.0); MONO # 0.9 10^3/uL (0.0-0.8); MONO % 9.9 % (0.0-5.0); NEUTROPHILS % 73.5 % (36.0-66.0); PLATELET COUNT, AUTOMATED 247 10^3/uL (150-450); RED BLOOD COUNT 4.28 10^6/uL (4.30-6.10); WHITE BLOOD COUNT 9.5 10^3/uL (4.0-10.0)
[2019-03-19 13:20] LABS: ALBUMIN 3.5 GM/DL (3.2-5.2); ALT/SGPT 30 U/L (12-78); BILIRUBIN,TOTAL 0.8 MG/DL (0.2-1.0); BLOOD UREA NITROGEN 15 MG/DL (7-18); CALCIUM LEVEL 9.2 MG/DL (8.8-10.2); CARBON DIOXIDE LEVEL 24 MEQ/L (21-32); CHLORIDE LEVEL 97 MEQ/L (98-107); CREATININE FOR GFR 1.16 MG/DL (0.70-1.30); FREE T4 1.08 NG/DL (0.76-1.46); GLOMERULAR FILTRATION RATE > 60.0 (>42); GLUCOSE, FASTING 74 MG/DL (70-100); POTASSIUM SERUM 4.6 MEQ/L (3.5-5.1); SODIUM LEVEL 132 MEQ/L (136-145); THYROID STIMULATING HORMONE 0.868 uIU/ML (0.358-3.740)
[2019-03-20 14:22] LABS: PSA TOTAL 0.9 ng/mL (0.0-4.0)
== END ==
LOC: M LABDRAW1 12:23 → M LABDRWAD 12:23
PROVIDERS: ATTEND Physician Assistant
DX: Z12.5 Encounter for screening for malignant neoplasm of prostate (principal); I10 Essential (primary) hypertension; M06.00 Rheumatoid arthritis without rheumatoid factor, unspecified site; I48.3 Typical atrial flutter

== ENCOUNTER → 2019-06-16 | Outpatient (REF) | payer MEDICARE, OTHER ==
[~2019-06-16] MED LIST changes: -OMEP40CA2; +OMEP40CA97
[2019-06-16 14:17] LABS: BASO % 0.2 % (0.0-1.0); EOS % 0.5 % (0.0-3.0); HEMATOCRIT 39.8 % (42.0-52.0); HEMOGLOBIN 14.2 g/dl (13.5-17.5); LYMPH # 2.7 10^3/uL (1.5-5.0); LYMPH % 31.3 % (24.0-44.0); MEAN CORPUSCULAR HEMOGLOBIN 34.4 pg (27.0-33.0); MEAN CORPUSCULAR HGB CONC 35.7 g/dl (32.0-36.5); MEAN CORPUSCULAR VOLUME 96.4 fl (80.0-96.0); MONO # 0.8 10^3/uL (0.0-0.8); MONO % 8.6 % (0.0-5.0); NEUTROPHILS # 5.1 10^3/uL (1.5-8.5); NEUTROPHILS % 58.8 % (36.0-66.0); PLATELET COUNT, AUTOMATED 285 10^3/uL (150-450); RED BLOOD COUNT 4.13 10^6/uL (4.30-6.10); WHITE BLOOD COUNT 8.7 10^3/uL (4.0-10.0)
[2019-06-16 14:29] LABS: ALBUMIN 3.8 GM/DL (3.2-5.2); ALT/SGPT 27 U/L (12-78); BILIRUBIN,TOTAL 0.5 MG/DL (0.2-1.0); BLOOD UREA NITROGEN 16 MG/DL (7-18); CALCIUM LEVEL 9.4 MG/DL (8.8-10.2); CARBON DIOXIDE LEVEL 27 MEQ/L (21-32); CHLORIDE LEVEL 99 MEQ/L (98-107); CHOLESTEROL LEVEL 217 MG/DL (<200); CHOLESTEROL RISK RATIO 3.741 (<5); FREE T4 1.05 NG/DL (0.76-1.46); GLOMERULAR FILTRATION RATE > 60.0 (>42); GLUCOSE, FASTING 72 MG/DL (70-100); HDL CHOLESTEROL 58 MG/DL (>40); LDL CHOLESTEROL 135 MG/DL (<100); NON-HDL-C 159 MG/DL; POTASSIUM SERUM 4.1 MEQ/L (3.5-5.1); SODIUM LEVEL 134 MEQ/L (136-145); TOTAL PROTEIN 7.6 GM/DL (6.4-8.2); TRIGLYCERIDES LEVEL 119 MG/DL (<150)
== END ==
LOC: M LABDRWAD 12:56
PROVIDERS: ATTEND Family Medicine
DX: M06.00 Rheumatoid arthritis without rheumatoid factor, unspecified site (principal); I10 Essential (primary) hypertension; I48.3 Typical atrial flutter; I48.0 Paroxysmal atrial fibrillation

== ENCOUNTER → 2019-09-22 | Outpatient (REF) | payer MEDICARE, OTHER ==
[2019-09-22 13:26] LABS: BASO % 0.3 % (0.0-1.0); EOS # 0.1 10^3/uL (0.0-0.5); EOS % 0.7 % (0.0-3.0); HEMATOCRIT 41.1 % (42.0-52.0); HEMOGLOBIN 14.3 g/dl (13.5-17.5); LYMPH # 3.5 10^3/uL (1.5-5.0); LYMPH % 34.7 % (24.0-44.0); MEAN CORPUSCULAR HEMOGLOBIN 33.3 pg (27.0-33.0); MEAN CORPUSCULAR HGB CONC 34.8 g/dl (32.0-36.5); MEAN CORPUSCULAR VOLUME 95.6 fl (80.0-96.0); MONO # 0.8 10^3/uL (0.0-0.8); NEUTROPHILS # 5.6 10^3/uL (1.5-8.5); NEUTROPHILS % 55.9 % (36.0-66.0); PLATELET COUNT, AUTOMATED 293 10^3/uL (150-450); WHITE BLOOD COUNT 10.1 10^3/uL (4.0-10.0)
[2019-09-22 13:33] LABS: ALBUMIN 3.8 GM/DL (3.2-5.2); ALT/SGPT 27 U/L (12-78); BILIRUBIN,TOTAL 0.5 MG/DL (0.2-1.0); BLOOD UREA NITROGEN 19 MG/DL (7-18); CALCIUM LEVEL 9.3 MG/DL (8.8-10.2); CARBON DIOXIDE LEVEL 26 MEQ/L (21-32); CHLORIDE LEVEL 100 MEQ/L (98-107); CHOLESTEROL LEVEL 203 MG/DL (<200); CHOLESTEROL RISK RATIO 3.625 (<5); CREATININE FOR GFR 1.18 MG/DL (0.70-1.30); FREE T4 1.07 NG/DL (0.76-1.46); GLOMERULAR FILTRATION RATE > 60.0 (>42); GLUCOSE, FASTING 76 MG/DL (70-100); HDL CHOLESTEROL 56 MG/DL (>40); LDL CHOLESTEROL 124 MG/DL (<100); NON-HDL-C 147 MG/DL; POTASSIUM SERUM 4.4 MEQ/L (3.5-5.1); SODIUM LEVEL 134 MEQ/L (136-145); TOTAL PROTEIN 7.2 GM/DL (6.4-8.2); TRIGLYCERIDES LEVEL 113 MG/DL (<150)
[2019-09-22 13:35] LABS: TOTAL 25(OH) VITAMIN D 32.5 NG/ML (30.0-100.0); VITAMIN B12 LEVEL 592 PG/ML (247-911)
[2019-09-22 13:51] LABS: HEMOGLOBIN A1c 6.4 %
== END ==
LOC: M LABDRWAD 12:36
PROVIDERS: ATTEND Family Medicine
DX: E78.00 Pure hypercholesterolemia, unspecified (principal); I10 Essential (primary) hypertension; R53.83 Other fatigue; Z79.52 Long term (current) use of systemic steroids

== ENCOUNTER → 2019-12-30 | Outpatient (REF) | payer MEDICARE, OTHER ==
[~2019-12-30] MED LIST changes: +ACET1TAB55 PO; +ALPR0.5T3 PO; +AUGM875T28 PO; +DOCU100C16 PO; +ETAN50PE SC; +HYOS0.374 PO; +KEPP250T5 PO; +KETO2CR TOP; +LISI-538 PO; +OMEP40CA97 PO; +PRED1TABL PO; +REFR0.5D8 OU; +SAW1CAPS2 PO; +SODI1TAB12 PO; +TORS5TAB2 PO; +TRIA1CR80 TOP
== END ==
LOC: M LAB REF 17:39
PROVIDERS: ATTEND Physician Assistant
DX: L03.115 Cellulitis of right lower limb (principal)

== ENCOUNTER → 2020-02-12 | Outpatient (REF) | payer MEDICARE, OTHER ==
[2020-02-12 13:17] LABS: BASO # 0.1 10^3/uL (0.0-0.2); BASO % 0.7 % (0.0-1.0); EOS # 0.3 10^3/uL (0.0-0.5); EOS % 3.7 % (0.0-3.0); HEMATOCRIT 37.8 % (42.0-52.0); HEMOGLOBIN 13.6 g/dl (13.5-17.5); LYMPH # 2.9 10^3/uL (1.5-5.0); LYMPH % 33.5 % (24.0-44.0); MEAN CORPUSCULAR HEMOGLOBIN 32.6 pg (27.0-33.0); MEAN CORPUSCULAR VOLUME 90.6 fl (80.0-96.0); MONO # 1.1 10^3/uL (0.0-0.8); MONO % 12.7 % (0.0-5.0); NEUTROPHILS # 4.3 10^3/uL (1.5-8.5); NEUTROPHILS % 49.1 % (36.0-66.0); PLATELET COUNT, AUTOMATED 332 10^3/uL (150-450); RED BLOOD COUNT 4.17 10^6/uL (4.30-6.10); WHITE BLOOD COUNT 8.7 10^3/uL (4.0-10.0)
[2020-02-12 13:28] LABS: INR 2.09; PROTHROMBIN TIME 23.9 SECONDS (11.8-14.0)
[2020-02-12 13:36] LABS: ALBUMIN 3.9 GM/DL (3.2-5.2); ALT/SGPT 30 U/L (12-78); BILIRUBIN,TOTAL 0.6 MG/DL (0.2-1.0); BLOOD UREA NITROGEN 19 MG/DL (7-18); CALCIUM LEVEL 9.3 MG/DL (8.8-10.2); CARBON DIOXIDE LEVEL 27 MEQ/L (21-32); CHLORIDE LEVEL 95 MEQ/L (98-107); CHOLESTEROL LEVEL 183 MG/DL (<200); CHOLESTEROL RISK RATIO 4.692 (<5); CREATININE FOR GFR 1.23 MG/DL (0.70-1.30); GLOMERULAR FILTRATION RATE > 60.0 (>42); GLUCOSE, FASTING 84 MG/DL (70-100); HDL CHOLESTEROL 39 MG/DL (>40); LDL CHOLESTEROL 117 MG/DL (<100); NON-HDL-C 144 MG/DL; SODIUM LEVEL 128 MEQ/L (136-145); TOTAL PROTEIN 7.7 GM/DL (6.4-8.2); TRIGLYCERIDES LEVEL 137 MG/DL (<150)
[2020-02-12 13:59] LABS: HEMOGLOBIN A1c 5.8 %
== END ==
LOC: M LABDRWAD 12:43
PROVIDERS: ATTEND Physician Assistant
DX: I48.0 Paroxysmal atrial fibrillation (principal); E78.00 Pure hypercholesterolemia, unspecified; Z79.52 Long term (current) use of systemic steroids; Z79.899 Other long term (current) drug therapy
CPT/HCPCS: 36415; 80053; 80061; 83036; 85025; 85610; G0103

== ENCOUNTER 2020-03-22 05:50 | Observation (INO) | payer MEDICARE, OTHER ==
[~2020-03-22] VITALS: Ht 182.9 cm; Wt 96.3 kg
[~2020-03-22 05:50] MED LIST changes: -ACET1TAB55 PO; -ALPR0.5T3 PO; -AUGM875T28 PO; -DOCU100C16 PO; -ETAN50PE SC; -HYOS0.374 PO; -KEPP250T5 PO; -KETO2CR TOP; -LISI-538 PO; -OMEP40CA97 PO; -PRED1TABL PO; -REFR0.5D8 OU; -SAW1CAPS2 PO; -SODI1TAB12 PO; -TORS5TAB2 PO; -TRIA1CR80 TOP
[2020-03-22] MEDS ORDERED: LISI-538 PO ×2 (06:07→10:13)
[2020-03-22] MEDS ORDERED: TORS5TAB2 PO ×2 (06:07→10:13)
[2020-03-22] MEDS ORDERED: HYOS0.374 PO ×2 (06:07→10:13)
[2020-03-22 06:10] VITALS: BP 169/79
[2020-03-22 06:17] LABS: BASO % 0.2 % (0.0-1.0); EOS # 0.1 10^3/uL (0.0-0.5); EOS % 0.8 % (0.0-3.0); HEMATOCRIT 33.3 % (42.0-52.0); HEMOGLOBIN 11.4 g/dl (13.5-17.5); LYMPH # 1.4 10^3/uL (1.5-5.0); LYMPH % 15.8 % (24.0-44.0); MEAN CORPUSCULAR HEMOGLOBIN 29.3 pg (27.0-33.0); MEAN CORPUSCULAR HGB CONC 34.2 g/dl (32.0-36.5); MEAN CORPUSCULAR VOLUME 85.6 fl (80.0-96.0); MONO # 1.1 10^3/uL (0.0-0.8); MONO % 12.6 % (0.0-5.0); NEUTROPHILS # 6.3 10^3/uL (1.5-8.5); PLATELET COUNT, AUTOMATED 372 10^3/uL (150-450); RED BLOOD COUNT 3.89 10^6/uL (4.30-6.10)
--- NOTE | 2020-03-22 06:27 | REPVR ---
PROCEDURE INFORMATION: Exam: CT Head Without Contrast Exam date and time: 03/22/2020 6:12 AM Age: 79 years old Clinical indication: Other: Sz; Additional info: Seizure activity/r/o stroke TECHNIQUE: Imaging protocol: Computed tomography of the head without contrast. Radiation optimization: All CT scans at this facility use at least one of these dose optimization techniques: automated exposure control; mA and/or kV adjustment per patient size (includes targeted exams where dose is matched to clinical indication); or iterative reconstruction. Other technique: STROKE PROTOCOL was implemented. COMPARISON: No relevant prior studies available. FINDINGS: Brain: Generalized parenchymal atrophy and evidence of microvascular ischemic disease involving periventricular and subcortical white matter bilaterally. Cerebral ventricles: No ventriculomegaly. Bones/joints: Unremarkable. No acute fracture. Paranasal sinuses: Visualized sinuses are unremarkable. No fluid levels. Mastoid air cells: Partial opacified right mastoid air cells. Soft tissues: Unremarkable. IMPRESSION: No acute intracranial pathology. ASSESSMENT: ASPECTS ([place] Stroke Program Early CT Score) is 10. Electronically signed by: Jerry Barnes On 03/22/2020 06:27:17 AM
[2020-03-22 06:30] LABS: PROTHROMBIN TIME 52.1 SECONDS (12.5-14.3)
--- NOTE | 2020-03-22 06:37 | REPVR ---
PROCEDURE INFORMATION: Exam: CT Cervical Spine Without Contrast Exam date and time: 03/22/2020 6:12 AM Age: 79 years old Clinical indication: Injury or trauma; Fall; Initial encounter; Blunt trauma; Additional info: Seizure activity/r/o stroke TECHNIQUE: Imaging protocol: Computed tomography images of the cervical spine without contrast. Radiation optimization: All CT scans at this facility use at least one of these dose optimization techniques: automated exposure control; mA and/or kV adjustment per patient size (includes targeted exams where dose is matched to clinical indication); or iterative reconstruction. COMPARISON: No relevant prior studies available. FINDINGS: Vertebrae: Levoscoliosis. Discs/Spinal canal/Neural foramina: Mild degenerative changes. Soft tissues: Unremarkable. Lungs: Biapical scarring. Centrilobular and paraseptal emphysema. Vasculature: Atherosclerotic disease. IMPRESSION: No acute findings. Electronically signed by: Jerry Banres On 03/22/2020 06:37:30 AM
--- NOTE | 2020-03-22 06:38 | REPVR ---
PROCEDURE INFORMATION: Exam: XR Chest, 1 View Exam date and time: 03/22/2020 6:29 AM Age: 79 years old Clinical indication: Other: CVA TECHNIQUE: Imaging protocol: XR of the chest Views: 1 view. COMPARISON: No relevant prior studies available. FINDINGS: Lungs: Bilateral perihilar opacities. Pleural space: Unremarkable. No pleural effusion. No pneumothorax. Heart/Mediastinum: Unremarkable. No cardiomegaly. Vasculature: Atherosclerotic disease of the thoracic aorta. Bones/joints: Osteopenia. Degenerative changes in the right acromioclavicular joint. IMPRESSION: Bilateral perihilar opacities. Electronically signed by: Jerry Barnes On 03/22/2020 06:38:08 AM
[2020-03-22 06:45] LABS: CK-MB VALUE MASS 2.1 NG/ML (<3.6); CPK CREATINE PHOSPHOKINASE 209 U/L (39-308); ETHYL ALCOHOL (ETHANOL) < 0.003 % (0.000-0.010); TROPONIN I 0.02 NG/ML (< 0.10)
[2020-03-22 06:52] LABS: INR 5.62
[2020-03-22] MEDS ORDERED: LORazepam 2 MG/ML VIAL As Ordered ONE (08:45)
[2020-03-22] MEDS ORDERED: LORazepam 2 MG/ML VIAL IV STA (08:47)
[2020-03-22] MEDS ORDERED: TORSEMIDE 5MG TABLET PO SCH (09:00)
[2020-03-22] MEDS ORDERED: levETIRAcetam INJection 1,000 MG in D5W 100 ML IV ONE (09:00)
[2020-03-22 09:22] LABS: ALBUMIN 2.8 GM/DL (3.2-5.2); ALT/SGPT 27 U/L (12-78); BILIRUBIN,TOTAL 0.9 MG/DL (0.2-1.0); BLOOD UREA NITROGEN 24 MG/DL (7-18); CALCIUM LEVEL 8.8 MG/DL (8.8-10.2); CARBON DIOXIDE LEVEL 21 MEQ/L (21-32); CHLORIDE LEVEL 99 MEQ/L (98-107); CREATININE FOR GFR 1.21 MG/DL (0.70-1.30); GLOMERULAR FILTRATION RATE > 60.0 (>42); GLUCOSE, FASTING 99 MG/DL (70-100); POTASSIUM SERUM 4.4 MEQ/L (3.5-5.1); SODIUM LEVEL 129 MEQ/L (136-145); TOTAL PROTEIN 6.6 GM/DL (6.4-8.2)
--- NOTE | 2020-03-22 09:45 | ECGEPIP ---
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
[2020-03-22] MEDS ORDERED: ETAN50PE SC (10:13)
[2020-03-22] MEDS ORDERED: CART180C3 PO (10:13)
[2020-03-22] MEDS ORDERED: REFR0.5D8 OU (10:13)
[2020-03-22] MEDS ORDERED: PRED1TABL PO (10:13)
[2020-03-22] MEDS ORDERED: WARF-23 PO (10:13)
[2020-03-22] MEDS ORDERED: TRIA1CR80 TOP (10:13)
[2020-03-22] MEDS ORDERED: KETO2CR TOP (10:13)
[2020-03-22] MEDS ORDERED: SAW1CAPS2 PO (10:13)
[2020-03-22] MEDS ORDERED: ALPR0.5T3 PO (10:13)
[2020-03-22] MEDS ORDERED: OMEP40CA97 PO (10:13)
--- NOTE | 2020-03-22 10:39 | HPEPDOC ---
[facility] Medical History & Physical Date of Admission Mar 22, 2020 Date of Service: Mar 22, 2020 Attending Physician: CHERYLE BULL MD History and Physical CHIEF COMPLAINT: seizure HISTORY OF PRESENT ILLNESS: Mr. Perdomo is a pleasant 79-year-old male with a history of rheumatoid arthritis, hypertension, paroxysmal atrial fibrillation. Patient is a poor historian. Per ED history, patient's called EMS for suspected stroke, however, patient declined to be taken to the emergency department. Patient was decisional. EMS and therefore was not taking to hospital. called EMS. Once again, after she stated the patient suffered a seizure on the toilet she called 911. On arrival to the ED, patient was not postictal. He denied focal weakness or numbness, he denied memory loss. While in the ED, the patient suffered a tonic-clonic witnessed seizure that lasted approximately 15 seconds. He was given Ativan IV, as well as 1000 mg of Keppra IV. Patient has a remote history of alcohol use. However per patient's , has not used alcohol in the last few weeks. On arrival to ED, the patient was afebrile, pulse 97, blood pressure 169/79 pulse oximetry 99%. , Hemoglobin 11.4, WBC 9.0, sodium 129, BUN 24, creatinine 1.21, BG 99. Serum alcohol level negative. CT of the head and cervical spine were negative for acute intracranial abnormality and fracture. X-ray showed bilateral perihilar opacities. During exam, patient was post-ictal and had limited ability to give accurate history. Certain components obtained from collateral hx and medical record. PAST MEDICAL HISTORY: Rheumatoid Arthritis Hypertension Paroxysmal afib BPH Anxiety Irritable Bowel Syndrome PAST SURGICAL HISTORY: patient is post-ictal, limited history SOCIAL HISTORY: Patient denies smoking Patient denies etoh use Patient denies illicit drug use FAMILY HISTORY: hx of lung cancer ALLERGIES: Please see below. REVIEW OF SYSTEMS: CONSTITUTIONAL: patient denies fevers, chills HEENT: patient denies blurred vision, loss of vision, headache,. CARDIOVASCULAR: patient denies chest pain, palpitations. RESPIRATORY: patient denies shortness of breath, cough, hemoptysis. GASTROINTESTINAL: patient denies abdominal pain, n/v/d, blood in stool. GENITOURINARY: patient denies dysuria, discharge. SKIN: patient denies rashes. MUSCULOSKELETAL: patient denies joint pain, neck pain. NEUROLOGICAL: patient denies focal weakness, numbness, seizures. PSYCHIATRIC: patient denies SI/HI. ENDOCRINE: patient denies polyuria, heat intolerance, cold intolerance. HEMATOLOGIC/LYMPHATIC: patient denies easy bruising. HOME MEDICATIONS: Please see below. PHYSICAL EXAMINATION: VITAL SIGNS: please see below General: NAD, comfortable HEENT: PERRLA, EOMI, sclerae clear Neck: supple, normal ROM, no JVD Respiratory: lungs CTAB, no wheeze, no rales, no crackles CVS: RRR, normal S1, S2, no murmurs Abdo: soft, no masses, no hepatosplenomegaly, BS+, no rebound tenderness Extremities: no edema, pulses 2+ MSK: no joint deformities, normal ROM Neuro: no focal neuro deficits, moving all 4 extremities, CN2-12 intact. Strength 5/5 in all 4 extremities. No nystagmus. Psych: calm, cooperative, AAO x 1-2 LABORATORY DATA: See below. IMAGING: CT head wo contrast (03/22/20)" FINDINGS: Brain: Generalized parenchymal atrophy and evidence of microvascular ischemic disease involving periventricular and subcortical white matter bilaterally. Cerebral ventricles: No ventriculomegaly. Bones/joints: Unremarkable. No acute fracture. Paranasal sinuses: Visualized sinuses are unremarkable. No fluid levels. Mastoid air cells: Partial opacified right mastoid air cells. Soft tissues: Unremarkable. IMPRESSION: No acute intracranial pathology. CT c-spine (03/22/20) FINDINGS: Vertebrae: Levoscoliosis. Discs/Spinal canal/Neural foramina: Mild degenerative changes. Soft tissues: Unremarkable. Lungs: Biapical scarring. Centrilobular and paraseptal emphysema. Vasculature: Atherosclerotic disease. IMPRESSION: No acute findings CXR (03/22/20): FINDINGS: Lungs: Bilateral perihilar opacities. Pleural space: Unremarkable. No pleural effusion. No pneumothorax. Heart/Mediastinum: Unremarkable. No cardiomegaly. Vasculature: Atherosclerotic disease of the thoracic aorta. Bones/joints: Osteopenia. Degenerative changes in the right acromioclavicular joint. IMPRESSION: Bilateral perihilar opacities. MICROBIOLOGY: Please see below. ASSESSMENT: Mr. Perdomo is a pleasant 79-year-old male with a history of rhe umatoid arthritis, hypertension, paroxysmal atrial fibrillation. Admitted for workup of tonic clonic seizure, witnessed in the ED. . PLAN: # hyponatremia: has prior admission for hyponatremia. suspect excess PO water intake. Na 129. IVF NS. Repeat labs in am. # Seizure: no prior record of seizure, appears to be new-onset. CT brain wnl. Brain MRI wnl. EEG ordered. S/p 1000 mg IV keppra in ED. Neurology consulted, discussed with Dr. Quinn. Start keppra 500 mg PO BID. # CAP/aspiration PNA: bilateral perihilar opacities on CXR. Start unasyn, transition to PO augmentin if no fevers, WBC. [employer] eval in am. # HTN urgency: resume PO home meds. Given 20 mg lisinopril PO, BP reduced to 153/86. Torsemide 5 mg daily. Lisinopril 20 mg bid. #paroxysmal afib: resume home med cardizem cd 180 mg PO daily. AC on warfarin. Held, supratherapeutic INR #supratherapeutic INR: INR 5.5. Hold warfarin. Repeat INR in am. Home dose 2.5 mg qhs. #RA: etanercept. prednisone. outpatient follow up. #hx of etoh use: CIWA, ativan prn. Vital Signs Vital Signs Date Time Temp Pulse Resp B/P (MAP) Pulse Ox O2 Delivery O2 Flow Rate FiO2 03/22/20 09:30 93 163/78 (106) 99 03/22/20 06:10 98.6 20 Room Air Laboratory Data Labs 24H Laboratory Tests 2 03/22/20 06:03: Immature Granulocyte % (Auto) 0.6, Neutrophils (%) (Auto) 70.0H, Lymphocytes (%) (Auto) 15.8L, Monocytes (%) (Auto) 12.6H, Eosinophils (%) (Auto) 0.8, Basophils (%) (Auto) 0.2, Neutrophils # (Auto) 6.3, Lymphocytes # (Auto) 1.4L, Monocytes # (Auto) 1.1H, Eosinophils # (Auto) 0.1, Basophils # (Auto) 0.0, Nucleated Red Blood Cells % (auto) 0.0, Prothrombin Time 52.1H, Prothromb Time International Ratio 5.62*H, Activated Partial Thromboplast Time 75.0H, Total Creatine Kinase 209, Creatine Kinase MB 2.1, Creatine Kinase MB Relative Index 1.00, Troponin I 0.02, Ethyl Alcohol Level < 0.003 03/22/20 08:14: Anion Gap 9, Glomerular Filtration Rate > 60.0, Calcium Level 8.8, Total Bilirubin 0.9, Aspartate Amino Transf (AST/SGOT) 30, Alanine Aminotransferase (ALT/SGPT) 27, Alkaline Phosphatase 84, Ammonia 18, Total Protein 6.6, Albumin 2.8L, Albumin/Globulin Ratio 0.7 CBC/BMP Laboratory Tests 03/22/20 06:03 03/22/20 08:14 Home Medications Scheduled Diltiazem HCl (Cartia Xt) 180 Mg Cap.er.24h, 180 MG PO DAILY Etanercept (Enbrel Sureclick) 50 Mg/1 Ml Pen.injctr, 50 MG SC QWEEK SATURDAY Hyoscyamine Sulfate (Hyoscyamine Sulfate ER) 0.375 Mg Tab.er.12h, 0.375 MG PO DAILY Lisinopril (Lisinopril) 20 Mg Tablet, 20 MG PO BID Omeprazole (Omeprazole) 40 Mg Capsule.dr, 40 MG PO DAILY Saw [place] Fruit/Zinc Picoli (Saw [place] 450 mg Capsule) 1 Each Capsule, 450 MG PO BID Torsemide (Torsemide) 5 Mg Tablet, 5 MG PO DAILY Warfarin Sodium (Warfarin Sodium) 5 Mg Tablet, 2.5 MG PO DAILY CHECKS INR WEEKLY ON SATURDAY ADJUSTS PER INR Scheduled PRN Alprazolam (Alprazolam) 0.5 Mg Tablet, 0.5 MG PO TID PRN for ANXIETY Carboxymethylcellulose Sodium (Refresh Tears) 15 Ml Drops, 1 DROP OU TID PRN for DRY EYES Ketoconazole (Ketoconazole) 15 Gm Cream..g., 1 APLCT TOP BID PRN for RASH APPLY TO ARMS Prednisone (Prednisone) 1 Mg Tablet, 1 DOSE PO DAILY PRN for ARTHRITIS TAKES 1 MG-4 MG PRN Triamcinolone Acet (Triamcinolone Acetonide 0.1% Crm) 80 Gm Cream..g., 1 APLCT TOP BID PRN for RASH/ITCHING APPLY TO ELBOWS Allergies Coded Allergies: No Known Allergies (Unverified , 09/22/12) A-FIB/CHADSVASC A-FIB History Current/History of A-Fib/PAF?: Yes Current PO Anticoag Therapy: Yes CHERYLE BULL MD Mar 22, 2020 10:39
[2020-03-22] MEDS ORDERED: ACETAMINOPHEN TAB 650MG DOSE (2X325MG) PO PRN (10:45)
[2020-03-22] MEDS ORDERED: MOM 30ML SUSPENSION UDC PO PRN (10:45)
[2020-03-22 13:30] VITALS: BP 184/86
--- NOTE | 2020-03-22 13:57 | REPVR ---
PROCEDURE INFORMATION: Exam: MR Head Without Contrast Exam date and time: 03/22/2020 12:56 PM Age: 79 years old Clinical indication: Other: Seizure TECHNIQUE: Imaging protocol: MR of the head without contrast. COMPARISON: CT Head without contrast 03/22/2020 6:07 AM FINDINGS: Brain: There is no extra-axial collection or intra-axial mass. Moderate diffuse volume loss is within the range of normal for patient age. There are foci of increased T2 and FLAIR signal within the periventricular and subcortical white matter, nonspecific but typically small-vessel ischemia in this age group. Areas of hyperintense signal on the diffusion-weighted sequences within the subarachnoid spaces of the high right frontal and left parietal lobes are presumably artifactual. Cerebral ventricles: Normal. No ventriculomegaly. Bones/joints: Unremarkable. Paranasal sinuses: Normal as visualized. No acute sinusitis. Mastoid air cells: There is fluid opacification of right mastoid air cells. Orbits: Unremarkable. Soft tissues: Unremarkable. IMPRESSION: No acute intracranial abnormality. Electronically signed by: Teresa Robertson On 03/22/2020 13:56:52 PM
[2020-03-22] MEDS: NS 1,000 ML IV SCH ×2 (14:40→22:45)
[2020-03-22] MEDS ORDERED: ALPRAZolam 0.5 MG TAB PO PRN (14:45)
[2020-03-22] MEDS ORDERED: TRIAMCINOLONE ACET 0.1% CREAM 80 GM TOP PRN (14:45)
[2020-03-22] MEDS ORDERED: lisinopriL 20 MG TAB PO ONE (14:45)
[2020-03-22] MEDS: OMEPRAZOLE 20 MG CAP PO SCH (15:16)
[2020-03-22] MEDS: diltiaZEM **CD** 180 MG CAP PO SCH (15:16)
[2020-03-22 16:00] VITALS: BP 153/86
[2020-03-22 17:00] VITALS: BP 153/76
[2020-03-22] MEDS ORDERED: LORazepam 2 MG/ML VIAL IV PRN (18:00)
[2020-03-22 19:05] LABS: AMPHETAMINES LEVEL URINE NEGATIVE (NEGATIVE); BARBITURATES URINE NEGATIVE (NEGATIVE); BENZODIAZEPINES URINE POSITIVE (NEGATIVE); CANNABINOIDS URINE NEGATIVE (NEGATIVE); COCAINE METABOLITE URINE NEGATIVE (NEGATIVE); METHADONE URINE NEGATIVE (NEGATIVE); OPIATES URINE NEGATIVE (NEGATIVE); PHENCYCLIDINE URINE NEGATIVE (NEGATIVE)
[2020-03-22 20:00] VITALS: BP 157/82
[2020-03-22] MEDS: levETIRAcetam 250MG TABLET (KEPPRA) PO SCH (20:51)
[2020-03-22] MEDS: TORSEMIDE 10 MG TABLET PO SCH (20:51)
[2020-03-22] MEDS: AMPICILLIN SOD/SULBACTAM SOD 3 GM in D5W MINI-BAG PLUS 100 ML IV SCH (20:52)
[2020-03-22] MEDS: DOCUSATE SODIUM 100 MG CAP PO SCH (20:52)
[2020-03-22] MEDS: lisinopriL 20 MG TAB PO SCH (21:01)
[2020-03-23] VITALS (7 sets, daily range): BP systolic 142–168; BP diastolic 78–92
[2020-03-23] MEDS: AMPICILLIN SOD/SULBACTAM SOD 3 GM in D5W MINI-BAG PLUS 100 ML IV SCH ×4 (00:13→18:00)
[2020-03-23 05:24] LABS: BASO % 0.3 % (0.0-1.0); EOS # 0.2 10^3/uL (0.0-0.5); EOS % 2.6 % (0.0-3.0); HEMATOCRIT 31.1 % (42.0-52.0); HEMOGLOBIN 10.6 g/dl (13.5-17.5); LYMPH # 1.8 10^3/uL (1.5-5.0); LYMPH % 20.2 % (24.0-44.0); MEAN CORPUSCULAR HGB CONC 34.1 g/dl (32.0-36.5); MONO # 0.9 10^3/uL (0.0-0.8); MONO % 9.9 % (0.0-5.0); NEUTROPHILS # 5.9 10^3/uL (1.5-8.5); NEUTROPHILS % 66.5 % (36.0-66.0); PLATELET COUNT, AUTOMATED 352 10^3/uL (150-450); RED BLOOD COUNT 3.66 10^6/uL (4.30-6.10); WHITE BLOOD COUNT 8.8 10^3/uL (4.0-10.0)
[2020-03-23 05:35] LABS: PROTHROMBIN TIME 51.7 SECONDS (12.5-14.3)
[2020-03-23 05:40] LABS: INR 5.56
[2020-03-23 05:46] LABS: ALBUMIN 2.7 GM/DL (3.2-5.2); ALT/SGPT 24 U/L (12-78); BILIRUBIN,TOTAL 0.9 MG/DL (0.2-1.0); BLOOD UREA NITROGEN 18 MG/DL (7-18); CALCIUM LEVEL 8.5 MG/DL (8.8-10.2); CARBON DIOXIDE LEVEL 21 MEQ/L (21-32); CHLORIDE LEVEL 101 MEQ/L (98-107); CREATININE FOR GFR 0.96 MG/DL (0.70-1.30); GLOMERULAR FILTRATION RATE > 60.0 (>42); GLUCOSE, FASTING 100 MG/DL (70-100); MAGNESIUM LEVEL 1.7 MG/DL (1.8-2.4); POTASSIUM SERUM 3.9 MEQ/L (3.5-5.1); SODIUM LEVEL 130 MEQ/L (136-145); TOTAL PROTEIN 6.5 GM/DL (6.4-8.2)
[2020-03-23] MEDS: NS 1,000 ML IV SCH ×3 (09:25→18:20)
[2020-03-23] MEDS: MAG SULF 1GM/100ML (MAG RUN) 1 GM in IV 1 EA IV SCH ×2 (09:25→09:38)
[2020-03-23] MEDS: lisinopriL 20 MG TAB PO SCH ×2 (09:25→20:25)
[2020-03-23] MEDS: levETIRAcetam 250MG TABLET (KEPPRA) PO SCH ×2 (09:26→20:24)
[2020-03-23] MEDS: OMEPRAZOLE 20 MG CAP PO SCH (09:26)
[2020-03-23] MEDS: TORSEMIDE 10 MG TABLET PO SCH (09:27)
[2020-03-23] MEDS: DOCUSATE SODIUM 100 MG CAP PO SCH ×2 (09:27→20:24)
[2020-03-23] MEDS: diltiaZEM **CD** 180 MG CAP PO SCH (09:27)
--- NOTE | 2020-03-23 14:00 | IPNPDOC ---
Date Seen The patient was seen on 03/23/20. Progress Note SUBJECTIVE: patient was seen and examined at bedside. Back from EEG. OBJECTIVE PHYSICAL EXAMINATION: VITAL SIGNS: please see below General: NAD, comfortable HEENT: PERRLA, EOMI, sclerae clear Neck: supple, normal ROM, no JVD Respiratory: lungs CTAB, no wheeze, no rales, no crackles CVS: RRR, normal S1, S2, no murmurs Abdo: soft, no masses, no hepatosplenomegaly, BS+, no rebound tenderness Extremities: no edema, pulses 2+ MSK: no joint deformities, normal ROM Neuro: no focal neuro deficits, moving all 4 extremities, CN2-12 intact. Strength 5/5 in all 4 extremities. No nystagmus. Psych: calm, cooperative, AAO x 1-2 LABORATORY DATA, IMAGING STUDIES, MICROBIOLOGY: Please see below. DVT prophylaxis ordered?: Y ASSESSMENT: Mr. Perdomo is a pleasant 79-year-old male with a history of rh eumatoid arthritis, hypertension, paroxysmal atrial fibrillation. Admitted for workup of tonic clonic seizure, witnessed in the ED. . PLAN: # hyponatremia: has prior admission for hyponatremia. suspect excess PO water intake. Na 129. IVF NS. Repeat labs in am. # Seizure: no prior record of seizure, appears to be new-onset. CT brain wnl. Brain MRI wnl. EEG ordered. S/p 1000 mg IV keppra in ED. Neurology consulted, discussed with Dr. Quinn. Started keppra 500 mg PO BID. # CAP/aspiration PNA: bilateral perihilar opacities on CXR. Start unasyn, transition to PO augmentin if no fevers, WBC. 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 # HTN urgency: resume PO home meds. Given 20 mg lisinopril PO, BP reduced to 153/86. Torsemide 5 mg daily. Lisinopril 20 mg bid. #paroxysmal afib: resume home med cardizem cd 180 mg PO daily. AC on warfarin. Held, supratherapeutic INR #supratherapeutic INR: INR remains supratherapeutic ( 5.62-> 5.56) Hold INRHome dose 2.5 mg qhs. #RA: etanercept. prednisone. outpatient follow up. #hx of etoh use: CIWA, ativan prn. VS, I&O, 24H, [facility] Vital Signs/I&O Vital Signs Date Time Temp Pulse Resp B/P (MAP) Pulse Ox O2 Delivery O2 Flow Rate FiO2 03/23/20 08:00 98.2 86 16 152/78 (102) 99 Room Air I&O- Last 24 Hours up to 6 AM 03/23/20 06:00 Intake Total 995 ml Output Total 450 ml Balance 545 ml Laboratory Data 24H LABS Laboratory Tests 2 03/22/20 18:18: Urine Color YELLOW, Urine Appearance CLEAR, Urine pH 6.0, Urine Specific [place] 1.016, Urine Protein 1+H, Urine Glucose (UA) NEGATIVE, Urine Ketones TRACEH, Urine Blood 1+H, Urine Nitrite NEGATIVE, Urine Bilirubin NEGATIVE, Urine Urobilinogen 4.0H, Urine Leukocyte Esterase NEGATIVE, Urine WBC (Auto) 1, Urine RBC (Auto) 4H, Urine Hyaline Casts (Auto) 0, Urine Bacteria (Auto) NEGATIVE, Urine Squamous Epithelial Cells 0, Urine Sperm (Auto) 03/23/20 04:59: Immature Granulocyte % (Auto) 0.5, Neutrophils (%) (Auto) 66.5H, Lymphocytes (%) (Auto) 20.2L, Monocytes (%) (Auto) 9.9H, Eosinophils (%) (Auto) 2.6, Basophils (%) (Auto) 0.3, Neutrophils # (Auto) 5.9, Lymphocytes # (Auto) 1.8, Monocytes # (Auto) 0.9H, Eosinophils # (Auto) 0.2, Basophils # (Auto) 0.0, Nucleated Red Blood Cells % (auto) 0.0, Prothrombin Time 51.7H, Prothromb Time International Ratio 5.56*H, Anion Gap 8, Glomerular Filtration Rate > 60.0, Calcium Level 8.5L, Magnesium Level 1.7L, Total Bilirubin 0.9, Aspartate Amino Transf (AST/SGOT) 24, Alanine Aminotransferase (ALT/SGPT) 24, Alkaline Phosphatase 81, Total Protein 6.5, Albumin 2.7L, Albumin/Globulin Ratio 0.7 03/23/20 07:36: Methicillin-Resist S.aureus DNA PCR NOT DETECTED CBC/BMP Laboratory Tests 03/23/20 04:59 CHERYLE BULL MD Mar 23, 2020 14:00
--- NOTE | 2020-03-23 18:00 | DS.PDOC ---
Discharge Summary General Date of Admission Mar 22, 2020 at 10:36 Date of Discharge 03/23/20 Primary Care Physician: JAVIER LAGUNA DO Attending Physician: CHERYLE BULL MD Specialist/Consultants Involve: RHONDA QUINN MD Discharge Summary PROCEDURES PERFORMED DURING STAY: [None]. ADMITTING DIAGNOSES: hyponatremia seizure community acquired pneumonia hypertensive urgency paroxysmal afib rhematoid arthritis DISCHARGE DIAGNOSES: hyponatremia seizure community acquired pneumonia hypertensive urgency paroxysmal afib rhematoid arthritis COMPLICATIONS/CHIEF COMPLAINT: Seizure. HISTORY OF PRESENT ILLNESS: Mr. Perdomo is a pleasant 79-year-old male with a history of rheumatoid arthritis, hypertension, paroxysmal atrial fibrillation. Patient is a poor historian. Per ED history, patient's called EMS for suspected stroke, however, patient declined to be taken to the emergency department. Patient was decisional. EMS and therefore was not taking to hospital. called EMS. Once again, after she stated the patient suffered a seizure on the toilet she called 911. On arrival to the ED, patient was not postictal. He denied focal weakness or numbness, he denied memory loss. While in the ED, the patient suffered a to armida-clonic witnessed seizure that lasted approximately 15 seconds. He was given Ativan IV, as well as 1000 mg of Keppra IV. Patient has a remote history of alcohol use. However per patient's , has not used alcohol in the last few weeks. On arrival to ED, the patient was afebrile, pulse 97, blood pressure 169/79 pulse oximetry 99%. , Hemoglobin 11.4, WBC 9.0, sodium 129, BUN 24, creatinine 1.21, BG 99. Serum alcohol level negative. CT of the head and cervical spine were negative for acute intracranial abnormality and fracture. X-ray showed bilateral perihilar opacities. During exam, patient was post-ictal and had limited ability to give accurate history. Certain components obtained from collateral hx and medical record. HOSPITAL COURSE: # hyponatremia: has prior admission for hyponatremia. suspect excess PO water intake. Na 130. Salt tabs on DC. # Seizure: no prior record of seizure, appears to be new-onset. CT brain wnl. Brain MRI wnl. EEG ordered. S/p 1000 mg IV keppra in ED. Neurology consulted, discussed with Dr. Quinn. Started keppra 500 mg PO BID. EEG normal per Dr. Quinn. Can be DC on keppra, and f/u outpatient. # CAP/aspiration PNA: bilateral perihilar opacities on CXR. Start unasyn, transition to PO augmentin if no fevers, WBC. SKI GUIDE cleared, no concerns for oropharyngeal dysphagia or aspiration. # HTN urgency: resume PO home meds. Given 20 mg lisinopril PO, BP reduced to 153/86. Torsemide 5 mg daily. Lisinopril 20 mg bid. #paroxysmal afib: resume home med cardizem cd 180 mg PO daily. AC on warfarin. Held, supratherapeutic INR #supratherapeutic INR: INR remains supratherapeutic ( 5.62-> 5.56) Hold INR Home dose 2.5 mg qhs. Has home POC machine, per , was normal 2 days ago. Recommend PCP check in 2 days, and machine to be calibrated/replaced. #AMS: improved. Per SKI GUIDE, a degree of cognitive deficit. Per , patient has been more forgetful over past few months, more frustrated with chores. Suspect degree of developing dementia. Recommend further neuropsych testing as outpatient. #RA: etanercept. prednisone. outpatient follow up. #hx of etoh use: CIWA, ativan prn. DISCHARGE MEDICATIONS: Please see below. ALLERGIES: Please see below. PHYSICAL EXAMINATION ON DISCHARGE: VITAL SIGNS: Please see below. General: NAD, comfortable HEENT: PERRLA, EOMI, sclerae clear Neck: supple, normal ROM, no JVD Respiratory: lungs CTAB, no wheeze, no rales, no crackles CVS: RRR, normal S1, S2, no murmurs Abdo: soft, no masses, no hepatosplenomegaly, BS+, no rebound tenderness Extremities: no edema, pulses 2+ MSK: no joint deformities, normal ROM Neuro: no focal neuro deficits, moving all 4 extremities, CN2-12 intact. Strength 5/5 in all 4 extremities. No nystagmus. Psych: calm, cooperative, AAO x 2-3 LABORATORY DATA: Please see below. IMAGING: CT brain wo contrast (03/22/20) FINDINGS: Brain: Generalized parenchymal atrophy and evidence of microvascular ischemic disease involving periventricular and subcortical white matter bilaterally. Cerebral ventricles: No ventriculomegaly. Bones/joints: Unremarkable. No acute fracture. Paranasal sinuses: Visualized sinuses are unremarkable. No fluid levels. Mastoid air cells: Partial opacified right mastoid air cells. Soft tissues: Unremarkable. IMPRESSION: No acute intracranial pathology CT c-spine wo contrast (03/22/20) FINDINGS: Vertebrae: Levoscoliosis. Discs/Spinal canal/Neural foramina: Mild degenerative changes. Soft tissues: Unremarkable. Lungs: Biapical scarring. Centrilobular and paraseptal emphysema. Vasculature: Atherosclerotic disease. IMPRESSION: No acute findings. CXR 03/22/20: FINDINGS: Lungs: Bilateral perihilar opacities. Pleural space: Unremarkable. No pleural effusion. No pneumothorax. Heart/Mediastinum: Unremarkable. No cardiomegaly. Vasculature: Atherosclerotic disease of the thoracic aorta. Bones/joints: Osteopenia. Degenerative changes in the right acromioclavicular joint. IMPRESSION: Bilateral perihilar opacities. MRI brain wo contrast (03/23/20) FINDINGS: Brain: There is no extra-axial collection or intra-axial mass. Moderate diffuse volume loss is within the range of normal for patient age. There are foci of increased T2 and FLAIR signal within the periventricular and subcortical white matter, nonspecific but typically small-vessel ischemia in this age group. Areas of hyperintense signal on the diffusion-weighted sequences within the subarachnoid spaces of the high right frontal and left parietal lobes are presumably artifactual. Cerebral ventricles: Normal. No ventriculomegaly. Bones/joints: Unremarkable. Paranasal sinuses: Normal as visualized. No acute sinusitis. Mastoid air cells: There is fluid opacification of right mastoid air cells. Orbits: Unremarkable. Soft tissues: Unremarkable. IMPRESSION: No acute intracranial abnormality PROGNOSIS: good ACTIVITY: [As tolerated]. DIET: regular, 2L PO fluid restriction DISCHARGE PLAN: home with PCP and specialist follow up. NEEDS REPEAT INR IN 2 days. DISPOSITION: home with DISCHARGE INSTRUCTIONS: PLEASE FOLLOW UP WITH YOUR PRIMARY CARE DOCTOR WITHIN 2-3 DAYS. THIS IS VERY IMPORTANT, YOU MUST CHECK YOUR INR (FOR WARFARIN) . PLEASE FOLLOW UP WITH NEUROLOGY WITHIN 1-2 WEEKS PLEASE TAKE YOUR MEDICATIONS PRESCRIBED. YOU HAVE BEEN STARTED ON KEPPRA 500 MG TWICE PER DAY IN ORDER TO HELP CONTROL YOUR SEIZURES. YOU MUST ALSO COMPLETE 5 DAYS OF ORAL ANTIBIOTICS - AUGMENTIN 875 MG TWICE PER DAY. IF YOU DEVELOP SEIZURE, FALL, CHEST PAIN, SHORTNESS OF BREATH, FEVERS, CHILLS, BLEEDING OR OTHERWISE WORSENING FO YOUR SYMPTOMS, PLEASE CALL 911 OR RETURN TO THE EMERGENCY DEPARTMENT. ITEMS TO FOLLOWUP ON ON OUTPATIENT: 1. check INR, patient was supratherapeutic. Has POC monitor at home, however, may need to be calibrated/replaced. 2. Repeat CXR in 2-4 weeks to assess hilar opacity. Patient completed 2 days of unasyn and 5 days of PO augmentin for possible pneumonia 3. Would recommend neuropsych testing for possible early onset dementia 4. Follow up with neurology - Dr. Rhonda Quinn. Patient is now on Keppra 500 mg PO BID. DISCHARGE CONDITION: [Stable]. TIME SPENT ON DISCHARGE: Greater than minutes. Vital Signs/I&Os Vital Signs Date Time Temp Pulse Resp B/P (MAP) Pulse Ox O2 Delivery O2 Flow Rate FiO2 03/23/20 16:00 99.4 94 17 168/81 (110) 99 Room Air I&O- Last 24 Hours up to 6 AM 03/23/20 06:00 Intake Total 995 ml Output Total 450 ml Balance 545 ml Laboratory Data Labs 24H Laboratory Tests 2 03/22/20 18:18: Urine Color YELLOW, Urine Appearance CLEAR, Urine pH 6.0, Urine Specific [place] 1.016, Urine Protein 1+H, Urine Glucose (UA) NEGATIVE, Urine Ketones TRACEH, Urine Blood 1+H, Urine Nitrite NEGATIVE, Urine Bilirubin NEGATIVE, Urine Urobilinogen 4.0H, Urine Leukocyte Esterase NEGATIVE, Urine WBC (Auto) 1, Urine RBC (Auto) 4H, Urine Hyaline Casts (Auto) 0, Urine Bacteria (Auto) NEGATIVE, Urine Squamous Epithelial Cells 0, Urine Sperm (Auto) 03/23/20 04:59: Immature Granulocyte % (Auto) 0.5, Neutrophils (%) (Auto) 66.5H, Lymphocytes (%) (Auto) 20.2L, Monocytes (%) (Auto) 9.9H, Eosinophils (%) (Auto) 2.6, Basophils (%) (Auto) 0.3, Neutrophils # (Auto) 5.9, Lymphocytes # (Auto) 1.8, Monocytes # (Auto) 0.9H, Eosinophils # (Auto) 0.2, Basophils # (Auto) 0.0, Nucleated Red Blood Cells % (auto) 0.0, Prothrombin Time 51.7H, Prothromb Time International Ratio 5.56*H, Anion Gap 8, Glomerular Filtration Rate > 60.0, Calcium Level 8.5L , Magnesium Level 1.7L, Total Bilirubin 0.9, Aspartate Amino Transf (AST/SGOT) 24, Alanine Aminotransferase (ALT/SGPT) 24, Alkaline Phosphatase 81, Total Protein 6.5, Albumin 2.7L, Albumin/Globulin Ratio 0.7 03/23/20 07:36: Methicillin-Resist S.aureus DNA PCR NOT DETECTED CBC/BMP Laboratory Tests 03/23/20 04:59 Discharge Medications Scheduled Amoxicillin/Potassium Clav (Augmentin 875-125 Tablet) 1 Each Tablet, 1 TAB PO B ID Diltiazem HCl (Cartia Xt) 180 Mg Cap.er.24h, 180 MG PO DAILY, (Reported) Docusate Sodium (Docusate Sodium) 100 Mg Capsule, 100 MG PO BID Etanercept (Enbrel Sureclick) 50 Mg/1 Ml Pen.injctr, 50 MG SC QWEEK, (Reported) SATURDAY Hyoscyamine Sulfate (Hyoscyamine Sulfate ER) 0.375 Mg Tab.er.12h, 0.375 MG PO DAILY, (Reported) Levetiracetam (Keppra) 250 Mg Tablet, 500 MG PO BID Lisinopril (Lisinopril) 20 Mg Tablet, 20 MG PO BID, (Reported) Omeprazole (Omeprazole) 40 Mg Capsule.dr, 40 MG PO DAILY, (Reported) Saw [place] Fruit/Zinc Picoli (Saw [place] 450 mg Capsule) 1 Each Capsule, 450 MG PO BID, (Reported) Sodium Chloride (Sodium Chloride) 1 Gm Tablet, 1 GRAM PO BID Torsemide (Torsemide) 5 Mg Tablet, 5 MG PO DAILY, (Reported) Warfarin Sodium (Warfarin Sodium) 5 Mg Tablet, 2.5 MG PO DAILY, (Reported) CHECKS INR WEEKLY ON SATURDAY ADJUSTS PER INR Scheduled PRN Acetaminophen (Acetaminophen) 325 Mg Tablet, 650 MG PO Q4H PRN for PAIN OR FEVER Alprazolam (Alprazolam) 0.5 Mg Tablet, 0.5 MG PO TID PRN for ANXIETY, (Reported) Carboxymethylcellulose Sodium (Refresh Tears) 15 Ml Drops, 1 DROP OU TID PRN for DRY EYES, (Reported) Ketoconazole (Ketoconazole) 15 Gm Cream..g., 1 APLCT TOP BID PRN for RASH, (Reported) APPLY TO ARMS Prednisone (Prednisone) 1 Mg Tablet, 1 DOSE PO DAILY PRN for ARTHRITIS, (R eported) TAKES 1 MG-4 MG PRN Triamcinolone Acet (Triamcinolone Acetonide 0.1% Crm) 80 Gm Cream..g., 1 APLCT TOP BID PRN for RASH/ITCHING, (Reported) APPLY TO ELBOWS Allergies Coded Allergies: No Known Allergies (Unverified , 09/22/12) CHERYLE BULL MD Mar 23, 2020 17:59
[2020-03-23] MEDS ORDERED: DOCU100C16 PO (18:01)
[2020-03-23] MEDS ORDERED: AUGM875T28 PO (18:01)
[2020-03-23] MEDS ORDERED: ACET1TAB55 PO (18:01)
[2020-03-23] MEDS ORDERED: KEPP250T5 PO (18:01)
[2020-03-23] MEDS ORDERED: SODI1TAB12 PO (18:04)
[2020-03-23] MEDS ORDERED: FLUBLOK(EGG FREE)(QUAD)INFLUENZA VACC 0.5ML SYRINGE 18YRS & OLDER IM ONE (18:30)
[2020-03-23] MEDS ORDERED: SODIUM CHLORIDE 1 GM TAB PO ONE (20:00)
[2020-03-23] MEDS ORDERED: AUGMENTIN 875 MG TAB PO ONE (20:00)
--- NOTE | 2020-03-27 13:26 | CR ---
DATE OF CONSULTATION: 03/22/2020 REFERRING PHYSICIAN: Dr. Braswell. REASON FOR CONSULTATION: Seizures. HISTORY OF PRESENT ILLNESS: The patient is a 79-year-old man with history of rheumatoid arthritis, paroxysmal atrial fibrillation, hypertension, who was brought to [facility] due to a possible seizure at home when he was in restroom. On arrival in emergency department the patient was not postictal and had no weakness, numbness, trouble with speech and had no recollection of the event. In the emergency department the patient suffered a generalized tonic-clonic seizure lasting for 15 seconds. He was given Ativan and Keppra. The patient does not seem to be a reliable historian himself. When I asked him as to what happened the patient stated he came to hospital yesterday due to a seizure. The patient stated that he only had one seizure and had no idea that he had one in the emergency department .Toward the end of his conversation the patient stated that he had been passing out for the last one week. He stated that he passed out third time last night. He stated that he passed out twice earlier this week. The patient denies any headaches, neck or back pain. He denies dysphagia, dysarthria, diplopia, urinary incontinence, numbness, weakness of arms or legs on either side. PAST MEDICAL HISTORY: Rheumatoid arthritis and patient states that he may have psoriasis, hypertension, paroxysmal atrial fibrillation, prostate enlargement, anxiety, irritable bowel syndrome. FAMILY HISTORY: Significant for lung cancer. SOCIAL HISTORY: He denies smoking, alcohol, illicit drugs. REVIEW OF SYSTEMS: All systems were reviewed and were found to be noncontributory except as mentioned in history of present illness. ALLERGIES: NONE. HOME MEDICATIONS: * Diltiazem Extended Release 180 mg PO daily. * Enbrel 50 mg subcutaneous once a week. * Hyoscyamine 0.375 mg PO daily. * Lisinopril 20 mg PO twice daily. * Omeprazole 40 mg PO daily. * Torsemide 5 mg PO daily. * Warfarin 2.5 mg PO daily. * Xanax 0.5 mg PO three times a day PRN. * Ketoconazole on rash as needed. PHYSICAL EXAMINATION: Temperature 98.6, pulse 93, respiratory rate 20, blood pressure 163/78, 99% saturation on room air. Heart regular rate and rhythm. Lungs clear to auscultation. Abdomen soft, nontender, non-distended. No pedal edema. No musculoskeletal abnormalities. The patient is awake, alert, oriented to place, name of president. He states it was February 11, 2022 but was able to correct himself when I pointed out the mistake. He did not know the exact date. Normal speech, comprehension and interpretation. Recent memory does not appear intact. Extraocular muscles intact. No facial weakness. Tongue and uvula midline. Visual lozoya are full to confrontation. There is no nystagmus. There is no tremor, rigidity, or dysmetria. 5/5 strength in all four extremities. Deep tendon reflexes are 1+ throughout. He has decreased cold, pinprick sensation in his feet. Gait is mildly unsteady. DIAGNOSTIC STUDIES: Hemoglobin 11.4, platelet count 372, creatinine 1.2. CT scan of cervical spine showed mild degenerative disk disease. Chest x-ray showed bilateral perihilar opacities. CT scan of head and MRI of brain showed moderate small vessel ischemic disease of brain and atrophy. ASSESSMENT: 1. Suspected generalized tonic-clonic seizures. 2. Mild cognitive impairment concern for dementia and postictal state. 3. 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 PLAN: 1. EEG. 2. Seizure precautions including no driving. 3. Keppra 500 mg PO twice daily. 4. Follow with our office in 2 weeks after hospital discharge. MARTA
--- NOTE | 2020-03-27 13:30 | EEG ---
DATE: 03/23/2020 REFERRING PHYSICIAN: Dr. Kuldeep Braswell DIAGNOSIS: Seizure. EEG# [id number] HISTORY: The patient is a 79-year-old man who was admitted to [facility] due to seizures. He is currently on Keppra, Coumadin, etc. TECHNICAL DESCRIPTION: This digital electroencephalogram (EEG) was recorded by 21 scalp, ear and two electrocardiogram (EKG) electrodes and was reviewed in bipolar and referential montages following a reformatting in 10-20 international electrode placement system INTERPRETATION: The patient was noted to be in awake and drowsy states during this EEG. Resting and awake background rhythm consisted of 9 Hz alpha activity measuring 15-40 microvolts in amplitude which was symmetric and reactive to eye opening. Attenuation of posterior dominant rhythm was seen during transition into drowsiness. No sleep was achieved. Hyperventilation could not be performed. Photic stimulation remained unremarkable. EKG revealed normal sinus rhythm. No focal, lateralizing or epileptiform abnormalities were seen. No relevant clinical activity was noted. No other evident clinical activity was noted. CONCLUSION: This EEG in awake and drowsy states is within normal limits. MTDD
== END 2020-03-23 20:31 | disposition home or self-care (01) ==
LOC: M ED 05:50 → M ED INP 10:36 → ENRESERV 10:56 → M PCU 13:32
PROVIDERS: ADMIT Family Medicine; ATTEND Family Medicine
DX: E87.1 Hypo-osmolality and hyponatremia (principal); G40.89 Other seizures; J18.9 Pneumonia, unspecified organism; I16.0 Hypertensive urgency; I48.0 Paroxysmal atrial fibrillation; M06.9 Rheumatoid arthritis, unspecified; I10 Essential (primary) hypertension; K58.8 Other irritable bowel syndrome; N40.0 Benign prostatic hyperplasia without lower urinary tract symptoms; F41.9 Anxiety disorder, unspecified; Z79.01 Long term (current) use of anticoagulants; Z79.899 Other long term (current) drug therapy
CPT/HCPCS: 36415; 36600; 70450; 70551; 71045; 72125; 80047; 80053; 80307; 81001; 82140; 82550; 82553; 82803; 83735; 84484; 85025; 85610; 85730; 86850; 86900; 86901; 87641; 90682; 92610; 93005; 93041; 95816; 96125; 96361; 96365; 96366; 96375; 97116; 97161; 97165; 97530; 99285; G0008; G0378; G0480; J1953; J2060; J3475

== ENCOUNTER 2020-06-18 17:46 | Inpatient (IN) | payer MEDICARE, OTHER ==
[~2020-06-18] VITALS: Ht 182.9 cm; Wt 96.5 kg
[~2020-06-18 17:46] MED LIST changes: +ACET1TAB55 PO; +ALPR0.5T3 PO; +AUGM875T28 PO; +DOCU100C16 PO; +ETAN50PE SC; +HYOS0.374 PO; +KEPP250T5 PO; +KETO2CR TOP; +LISI-538 PO; +OMEP40CA97 PO; +PRED1TABL PO; +REFR0.5D8 OU; +SAW1CAPS2 PO; +SODI1TAB12 PO; +TORS5TAB2 PO; +TRIA1CR80 TOP
[2020-06-18] MEDS ORDERED: ELIQ5TAB PO (18:23)
--- NOTE | 2020-06-18 18:36 | REP ---
INDICATION: Altered Mental Status COMPARISON: 03/22/2020 TECHNIQUE: Portable AP view of the chest FINDINGS: The mediastinum and cardiac silhouette are stable and within normal limits for portable technique. The lung lozoya demonstrate stable chronic appearing interstitial changes without acute consolidation, effusion, or pneumothorax. Skeletal structures are intact. IMPRESSION: No acute cardiopulmonary process appreciated. <Electronically signed by Robbie Donato > 06/18/20 [id number]
--- NOTE | 2020-06-18 18:41 | REPVR ---
PROCEDURE INFORMATION: Exam: CT Head Without Contrast Exam date and time: 06/18/2020 6:24 PM Age: 79 years old Clinical indication: Altered mental status/memory loss TECHNIQUE: Imaging protocol: Computed tomography of the head without contrast. Radiation optimization: All CT scans at this facility use at least one of these dose optimization techniques: automated exposure control; mA and/or kV adjustment per patient size (includes targeted exams where dose is matched to clinical indication); or iterative reconstruction. COMPARISON: CT Head without contrast 03/22/2020 6:07 AM FINDINGS: Brain: There is [id number] age related parenchymal volume loss. White matter changes are demonstrated in the subcortical, centrum semiovale and periventricular white matter consistent with age related small vessel white matter ischemic changes. Cerebral ventricles: The degree of ventricular dilatation is normal for age and/or degree of atrophy present. Bones/joints: Unremarkable. No acute fracture. Paranasal sinuses: Visualized sinuses are unremarkable. No fluid levels. Mastoid air cells: Visualized mastoid air cells are well aerated. Vasculature: Atherosclerotic calcifications are demonstrated in the intracranial carotid arteries bilaterally as well as in the vertebral basilar system. Soft tissues: Unremarkable. IMPRESSION: 1. There is [id number] age related parenchymal volume loss. White matter changes are demonstrated in the subcortical, centrum semiovale and periventricular white matter consistent with age related small vessel white matter ischemic changes. 2. The degree of ventricular dilatation is normal for age and/or degree of atrophy present. 3. No acute intracranial findings. Electronically signed by: John Cage On 06/18/2020 18:41:23 PM
[2020-06-18 19:13] LABS: BASO % 0.4 % (0.0-1.0); EOS # 0.4 10^3/uL (0.0-0.5); EOS % 4.5 % (0.0-3.0); HEMATOCRIT 33.4 % (42.0-52.0); HEMOGLOBIN 10.7 g/dl (13.5-17.5); LYMPH # 2.1 10^3/uL (1.5-5.0); MEAN CORPUSCULAR HEMOGLOBIN 28.6 pg (27.0-33.0); MEAN CORPUSCULAR VOLUME 89.3 fl (80.0-96.0); MONO # 1.2 10^3/uL (0.0-0.8); MONO % 12.1 % (0.0-5.0); NEUTROPHILS % 61.6 % (36.0-66.0); PLATELET COUNT, AUTOMATED 345 10^3/uL (150-450); RED BLOOD COUNT 3.74 10^6/uL (4.30-6.10); WHITE BLOOD COUNT 9.8 10^3/uL (4.0-10.0)
[2020-06-18 19:24] LABS: INR 1.11; PROTHROMBIN TIME 14.5 SECONDS (12.5-14.3)
[2020-06-18 19:25] LABS: PARTIAL THROMBOPLASTIN TIME 33.7 SECONDS (24.2-38.5)
[2020-06-18 19:55] LABS: ACETAMINOPHEN LEVEL < 2.0 UG/ML (10.0-30.0); ALBUMIN 3.4 GM/DL (3.2-5.2); ALT/SGPT 22 U/L (12-78); BILIRUBIN,DIRECT < 0.1 MG/DL (0.0-0.2); BILIRUBIN,TOTAL 0.2 MG/DL (0.2-1.0); BLOOD UREA NITROGEN 26 MG/DL (7-18); CALCIUM LEVEL 8.6 MG/DL (8.8-10.2); CARBON DIOXIDE LEVEL 21 MEQ/L (21-32); CHLORIDE LEVEL 103 MEQ/L (98-107); CK-MB VALUE MASS 1.9 NG/ML (<3.6); CPK CREATINE PHOSPHOKINASE 61 U/L (39-308); ETHYL ALCOHOL (ETHANOL) < 0.003 % (0.000-0.010); GLOMERULAR FILTRATION RATE 52.3 (>42); GLUCOSE, FASTING 118 MG/DL (70-100); MB/CK RELATIVE INDEX 3.11 (< OR =4); POTASSIUM SERUM 4.7 MEQ/L (3.5-5.1); SALICYLATE LEVEL < 1.7 MG/DL (5.0-30.0); SODIUM LEVEL 134 MEQ/L (136-145); TOTAL PROTEIN 7.3 GM/DL (6.4-8.2); TROPONIN I < 0.02 NG/ML (< 0.10)
[2020-06-18] MEDS ORDERED: NS 1,000 ML IV ONE (20:15)
[2020-06-18 21:34] LABS: AMPHETAMINES LEVEL URINE NEGATIVE (NEGATIVE); BARBITURATES URINE NEGATIVE (NEGATIVE); BENZODIAZEPINES URINE NEGATIVE (NEGATIVE); CANNABINOIDS URINE NEGATIVE (NEGATIVE); COCAINE METABOLITE URINE NEGATIVE (NEGATIVE); METHADONE URINE NEGATIVE (NEGATIVE); OPIATES URINE NEGATIVE (NEGATIVE); PHENCYCLIDINE URINE NEGATIVE (NEGATIVE)
[2020-06-18] MEDS ORDERED: lisinopriL 20 MG TAB PO ONE (22:15)
[2020-06-18] MEDS ORDERED: ACETAMINOPHEN TAB 650MG DOSE (2X325MG) PO PRN (22:45)
[2020-06-18] MEDS ORDERED: MAALOX 30 ML SUSP *UDC PO PRN (22:45)
[2020-06-18] MEDS ORDERED: MOM 30ML SUSPENSION UDC PO PRN (22:45)
--- NOTE | 2020-06-18 22:54 | HPEPDOC ---
[facility] Medical History & Physical Date of Admission Jun 18, 2020 Date of Service: Jun 18, 2020 Primary Care Physician: JAVIER LAGUNA DO Attending Physician: TI GUPTA MD History and Physical TIME OF SERVICE: 1110 PM CHIEF COMPLAINT: high blood pressure HISTORY OF PRESENT ILLNESS: This 79 yr old M was last admitted to [facility] in Feb for hyponatremia and seizures; based on the discharge summary he was discharged with Keppra 500mg BID, but the patient denies currently taking Keppra. He followed up with but doesnt remember if any comments were made about his seizures or his medications. Today he reports coming to the ER because his BP was high; he doesnt remember having any seizures, but per Khurram Omalley and ER intake notes while the patient was seated at the table he felt like he needed to get up because his leg was stiff. He was unable to walk to the living room because of the stiffness, so his son assisted him to lie on the floor and there after his arm and leg were noted to be shaking. The patient didnt lose consciousness or have bowel or bladder incontinence. EMS also witnessed the patient having a seizure and his told them that the patient also had a seizure 2 weeks ago. Per Khurram Omalley the patient was disoriented. The patient denied having cough, runny nose, chest pain, n/v/d/f/c, eating or drinking less than usual and being under more stress recently. REVIEW OF SYSTEMS: 12-point review of systems negative except as listed in HPI PAST MEDICAL/ SURGICAL HISTORY: Seizure disorder diagnosed Feb 2020 Small Vessel Ischemic disease RA Chronic HTN GERD Umbilical hernia BPH Paroxysmal afib Anxiety Irritable Bowel Syndrome SOCIAL HISTORY: He doesnt smoke and lives with his FAMILY HISTORY: hx of lung cancer ALLERGIES: Please see below. HOME MEDICATIONS: Please see below. PHYSICAL EXAMINATION: Vital Signs Date Time Temp Pulse Resp B/P (MAP) Pulse Ox O2 Delivery O2 Flow Rate FiO2 06/18/20 18:00 157/81 (106) 06/18/20 18:01 106 97 06/18/20 18:10 98.0 20 Room Air GENERAL APPEARANCE: well nourished/ well developed / NAD HEENT: EOMI / MMM&P / no tongue lacerations CARDIOVASCULAR: RRR/NMRG / radial pulses intact LUNGS: CTAB on RA / no cough ABDOMEN: contour obese/ soft & NT on palpation MUSCULOSKELETAL: NCAT / CORINA x 4 NEUROLOGICAL: CN 2-12 intact /speech not dysarthric PSYCHIATRIC: A&O x 3 / able to understand and follow all commands LABORATORY DATA:see below IMAGING: CT head IMPRESSION: 1. There is [id number] age related parenchymal volume loss. White matter changes are demonstrated in the subcortical, centrum semiovale and periventricular white matter consistent with age related small vessel white matter ischemic changes. 2. The degree of ventricular dilatation is normal for age and/or degree of atrophy present. 3. No acute intracranial findings. Chest xray IMPRESSION: No acute cardiopulmonary process appreciated. MICROBIOLOGY: COVID 19 neg ASSESSMENT: is a 79 yr old w a hx of seizure disorder, HTN, RA, small vessel ischemic disease, parox afib, anxiety, IBS and BPH who presented for evaluation after having witnessed seizures likely 2/2 not taking seizure meds. PLAN: 1 Seizure 2/2 not taking Keppra, I am not sure if this med was discontinued by one of his Physicians, or there was a miss-understanding when he was discharged. CT of the head didnt show PRES or cerebral venous and sinus thrombosis (concerning findings in patients with seizures and accelerated HTN). The chemistries, Trop, UA and chest xray were unremarkable The lactic acidosis is likely 2/2 seizures Plan: admit to PCU / fall precautions/ seizure precautions/ frequent neuro checks / f/u prolactin and serum Keppra levels / Ativan 2mg IV Q2H PRN seizures / load with Keppra 1000mg IV then c/w 500mg BID / the day time team may consider Neuro consult +/- EEG 2. Uncontrolled HTN He is asymptomatic Plan: start amlodipine 2.5 mg daily, c/w Cardizem / hold Lisinopril bc of AMELIA 3. AMELIA Cr increased from baseline of 0.96 to 1.4 Plan: monitor UOP / IVF / f/u renal panel, CK, Ulytes for FENa or FEUrea / renal US / hold Lisinopril 4. Small Vessel Ischemic disease Plan: optimize BP meds 5. Tachycardia likely 2/2 dehydration Plan: IVF 6. NN anemia Plan: f/u iron panel and stool occult 7. RA Plan: etanercept 8. GERD Plan: omeprazole 9. Paroxysmal afib Plan: telemetry / diltiazem and apixaban 10. Anxiety Plan: alprazolam 11. Class 1 Obesity BMI 31.1 complicates care A1C a few months ago was 5.8% Plan: if the patient can f/u w his PCP for sleep apnea screening, restaurant district manager consult, to discuss staring Saxenda, which is indicated in patients with a BMI >27 with co-existing DM, HTN or dyslipidemia to help with weight control as an adjunct to exercise / recommend cardiovascular exercise for 40 min 4-5 days a week DVT Px n/a on DOAC Dispo: home after more than 2 midnights stay Laboratory Data Labs 24H Laboratory Tests 2 06/18/20 18:22: Immature Granulocyte % (Auto) 0.4, Neutrophils (%) (Auto) 61.6, Lymphocytes (%) (Auto) 21.0L, Monocytes (%) (Auto) 12.1H, Eosinophils (%) (Auto) 4.5H, Basophils (%) (Auto) 0.4, Neutrophils # (Auto) 6.0, Lymphocytes # (Auto) 2.1, Monocytes # (Auto) 1.2H, Eosinophils # (Auto) 0.4, Basophils # (Auto) 0.0, Nucleated Red Blood Cells % (auto) 0.0, Prothrombin Time 14.5H, Prothromb Time International Ratio 1.11, Activated Partial Thromboplast Time 33.7, Anion Gap 10, Glomerular Filtration Rate 52.3, Lactic Acid Level 2.9*H, Calcium Level 8.6L, Total Bilirubin 0.2, Direct Bilirubin < 0.1, Aspartate Amino Transf (AST/SGOT) 18, Alanine Aminotransferase (ALT/SGPT) 22, Alkaline Phosphatase 116, Ammonia < 10, Total Creatine Kinase 61, Creatine Kinase MB 1.9, Creatine Kinase MB Relative Index 3.11, Troponin I < 0.02, Total Protein 7.3, Albumin 3.4, Albumin/Globulin Ratio 0.9, Thyroid Stimulating Hormone (TSH) 4.160H, Salicylates Level < 1.7L, Urine Opiates Screen NEGATIVE, Urine Methadone Screen NEGATIVE, Acetaminophen Level < 2.0L, Urine Barbiturates Screen NEGATIVE, Urine Phencyclidine Screen NEGATIVE, Urine Amphetamines Screen NEGATIVE, Urine Benzodiazepines Screen NEGATIVE, Urine Cocaine Metabolite Screen NEGATIVE, Urine Cannabinoids Screen NEGATIVE, Ethyl Alcohol Level < 0.003 06/18/20 21:00: Urine Color YELLOW, Urine Appearance CLEAR, Urine pH 6.0, Urine Specific [place] 1.010, Urine Protein NEGATIVE, Urine Glucose (UA) NEGATIVE, Urine Ketones NEGATIVE, Urine Blood NEGATIVE, Urine Nitrite NEGATIVE, Urine Bilirubin NEGATIVE, Urine Urobilinogen 0.2, Urine Leukocyte Esterase NEGATIVE, Urine WBC (Auto) 1, Urine RBC (Auto) 1, Urine Hyaline Casts (Auto) 0, Urine Bacteria (Auto) NEGATIVE, Urine Squamous Epithelial Cells 0, Urine Sperm (Auto) CBC/BMP Laboratory Tests 06/18/20 18:22 Home Medications Scheduled Apixaban (Eliquis) 5 Mg Tablet, 5 MG PO BID Diltiazem HCl (Cartia Xt) 180 Mg Cap.er.24h, 180 MG PO DAILY Etanercept (Enbrel Sureclick) 50 Mg/1 Ml Pen.injctr, 50 MG SC QWEEK SATURDAY Levetiracetam (Keppra) 250 Mg Tablet, 500 MG PO BID Lisinopril (Lisinopril) 20 Mg Tablet, 20 MG PO BID Omeprazole (Omeprazole) 40 Mg Capsule.dr, 40 MG PO DAILY Saw [place] Fruit/Zinc Picoli (Saw [place] 450 mg Capsule) 1 Each Capsule, 450 MG PO BID Scheduled PRN Alprazolam (Alprazolam) 0.5 Mg Tablet, 0.5 MG PO TID PRN for ANXIETY Ketoconazole (Ketoconazole) 15 Gm Cream..g., 1 APLCT TOP BID PRN for RASH APPLY TO ARMS Triamcinolone Acet (Triamcinolone Acetonide 0.1% Crm) 80 Gm Cream..g., 1 APLCT TOP BID PRN for RASH/ITCHING APPLY TO ELBOWS Allergies Coded Allergies: No Known Allergies (Unverified , 09/22/12) A-FIB/CHADSVASC A-FIB History Current/History of A-Fib/PAF?: Yes Current PO Anticoag Therapy: Yes TI GUPTA MD Jun 18, 2020 22:54
[2020-06-18] MEDS: NS 1,000 ML IV SCH (23:14)
[2020-06-18 23:28] LABS: OSMOLALITY URINE 422 MOSM/KG (500-800)
[2020-06-18 23:31] LABS: BACTERIA, URINE AUTO NEGATIVE (NEGATIVE); PROTEIN, URINE AUTO NEGATIVE (NEGATIVE); RBC, URINE AUTO 2 /HPF (0-3); SQUAMOUS EPITHELIAL CELL UR AU 0 /HPF (0-6); WBC, URINE AUTO 1 /HPF (0-3)
[2020-06-18 23:51] LABS: CREATININE,RANDOM URINE 53.1 MG/DL; POTASSIUM RANDOM URINE 19.2 MEQ/L; SODIUM,RANDOM URINE 81 MEQ/L
[2020-06-19 00:35] LABS: MAGNESIUM LEVEL 1.9 MG/DL (1.8-2.4); PERCENT SATURATION 6.1 % (19.7-50.0)
[2020-06-19] MEDS ORDERED: levETIRAcetam INJection 1,000 MG in D5W 100 ML IV ONE (01:15)
[2020-06-19] MEDS ORDERED: LORazepam 2 MG/ML VIAL IV PRN (01:15)
[2020-06-19] MEDS: levETIRAcetam 250MG TABLET (KEPPRA) PO SCH ×2 (01:17→10:01)
[2020-06-19] MEDS ORDERED: ALPRAZolam 0.5 MG TAB PO PRN (01:30)
[2020-06-19] MEDS ORDERED: KETOCONAZOLE 2% CREAM TOP PRN (01:30)
[2020-06-19 01:55] VITALS: BP 162/62
[2020-06-19] MEDS ORDERED: levETIRAcetam 250MG TABLET (KEPPRA) PO ONE (02:15)
[2020-06-19 04:00] VITALS: BP 130/60
[2020-06-19 06:15] LABS: HEMATOCRIT 31.7 % (42.0-52.0); HEMOGLOBIN 10.1 g/dl (13.5-17.5); MEAN CORPUSCULAR HEMOGLOBIN 28.7 pg (27.0-33.0); MEAN CORPUSCULAR HGB CONC 31.9 g/dl (32.0-36.5); MEAN CORPUSCULAR VOLUME 90.1 fl (80.0-96.0); PLATELET COUNT, AUTOMATED 346 10^3/uL (150-450); RED BLOOD COUNT 3.52 10^6/uL (4.30-6.10); WHITE BLOOD COUNT 8.4 10^3/uL (4.0-10.0)
[2020-06-19 06:46] LABS: BLOOD UREA NITROGEN 22 MG/DL (7-18); CALCIUM LEVEL 8.9 MG/DL (8.8-10.2); CARBON DIOXIDE LEVEL 20 MEQ/L (21-32); CHLORIDE LEVEL 107 MEQ/L (98-107); CREATININE FOR GFR 1.16 MG/DL (0.70-1.30); FERRITIN 34 NG/ML (26-388); GLOMERULAR FILTRATION RATE > 60.0 (>42); GLUCOSE, FASTING 92 MG/DL (70-100); IRON (FE) 36 UG/DL (65-175); PERCENT SATURATION 11.4 % (19.7-50.0); POTASSIUM SERUM 4.3 MEQ/L (3.5-5.1); SODIUM LEVEL 133 MEQ/L (136-145); TOTAL IRON BINDING CAPACITY 315 UG/DL (250-450)
--- NOTE | 2020-06-19 07:36 | REP ---
INDICATION: calderon COMPARISON: None TECHNIQUE: Real time gutierres scale ultrasound examination using curved array transducer. FINDINGS: The kidneys are normal in reniform shape and demonstrate increased parenchymal echotexture and increased central sinus fat consistent with chronic medical renal disease, but no evidence for hydronephrosis. Right kidney measures 11.2 x 5.6 x 5.5 cm without nephrolithiasis or cystic/mass lesion. Left kidney measures 13.1 x 4.9 x 6.3 cm and includes multiple subcentimeter cysts along with 2.4 x 1.6 x 2.1 cm upper pole cyst. No nephrolithiasis or obvious mass lesion. Bladder is grossly unremarkable. IMPRESSION: 1. Chronic medical renal disease and left renal cysts up to 2.4 cm. 2. No evidence for hydronephrosis. <Electronically signed by Robbie Donato > 06/19/20 0732
[2020-06-19] MEDS ORDERED: KEPP250T5 PO (07:40)
[2020-06-19] MEDS: NS 1,000 ML IV SCH (07:54)
[2020-06-19 08:00] VITALS: BP 148/86
--- NOTE | 2020-06-19 08:24 | ECGEPIP ---
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
--- NOTE | 2020-06-19 08:51 | DS.PDOC ---
Discharge Summary General Date of Admission Jun 18, 2020 at 22:42 Date of Discharge 06/19/20 Discharge Summary DISCHARGE DIAGNOSES: Hypertensive urgency Recurrent seizures due to noncompliance . Acute kidney injury Seizure disorder diagnosed Feb 2020 Small Vessel Ischemic disease RA Chronic HTN GERD Umbilical hernia BPH Paroxysmal afib Anxiety Irritable Bowel Syndrome ALLERGIES: Please see below. DISCHARGE HOME MEDICATIONS: Please see below. DISCHARGE INSTRUCTIONS: Check your blood pressure twice daily. Call your doctor if systolic pressures greater than 140MMHG. Primary care physician appointment within 5-7 days of discharge Do not drive a motorized vehicle or heavy machinery until cleared by her neurologist Avoid alcohol and sedatives while taking anti-seizure medications Neurology follow-up within 5 days of hospital discharge HOSPITAL COURSE is a 79 yr old w a hx of seizure disorder, HTN, RA, small vessel ischemic disease, parox afib, anxiety, IBS and BPH with noncompliance with his seizure medications, admitted for hypertensive urgency and witnessed seizure at home. Patient's blood pressure systolic was over 200. He was given his home dose of lisinopril 20 mg as well as 2 doses of Norvasc 2.5 mg with resultant improvement to 1:30 to 140 systolic. He was admitted to the telemetry unit. EKG showed no ST-T wave changes. CT of the head had no acute intracranial abnor mality due to witnessed seizure at home. Patient was put on seizure precautions, given intravenous Keppra and 500 Mg by Mouth Twice a Day Patient Had No Issues Overnight. Telemetry Showed Sinus Rhythm. He Had No Signs of Aspiration and Was Started on Oral Diet. IV Fluids Were Given Due To Acute Kidney Injury, Which Resolved with Good Urine Output. Patient Was Instructed Not to Drive a Motorized Vehicle or Heavy Machinery until Cleared by His Neurologist and to Avoid Drinking Alcohol or Taking Sedatives While on Anti-Seizure Medications. Patient Says That He Has a Blood Pressure Machine at Home and feels comfortable going home without home care. He was instructed to call his primary care doctor on Saturday for an immediate follow-up for blood pressure check and his neurologist to clear him for driving. DISCHARGE PHYSICAL EXAMINATION: VITAL SIGNS: Please see below. GENERAL APPEARANCE:. Speaks in full sentences. Face is symmetric, answering questions appropriately NAD HEENT: no horizontal or vertical nystagmus. Pupils are round and reactive to light and accommodation. Extra muscles are intact. No JVD, thyromegaly, cervical lymphadenopathy CARDIOVASCULAR: RRR, S1, S2. No murmurs noted LUNGS: CTAB. No adventitious breath sounds. Air entry is equal 4 quadrants ABDOMEN: Soft, nontender, nondistended, positive bowel sounds, and throat quadrants MUSCULOSKELETAL: No cyanosis, clubbing or pitting edema NEUROLOGICAL: Face is symmetric. Tongue is midline. Motor function is 5 out of 54 extremities. No sensory disturbance. Negative Babinski bilateral lower extremities. DTRs are intact bilaterally LABORATORY DATA: IMAGING: CT head IMPRESSION: 1. There is [id number] age related parenchymal volume loss. White matter changes are demonstrated in the subcortical, centrum s emiovale and periventricular white matter consistent with age related small vessel white matter ischemic changes. 2. The degree of ventricular dilatation is normal for age and/or degree of atrophy present. 3. No acute intracranial findings. Chest xray IMPRESSION: No acute cardiopulmonary process appreciated. MICROBIOLOGY: COVID 19 neg TIME SPENT ON DISCHARGE 30 MINUTES Vital Signs/I&Os Vital Signs Date Time Temp Pulse Resp B/P (MAP) Pulse Ox O2 Delivery O2 Flow Rate FiO2 06/19/20 08:00 98.2 93 20 148/86 (106) 98 Room Air I&O- Last 24 Hours up to 6 AM 06/19/20 06:00 Intake Total 1150 ml Output Total 370 ml Balance 780 ml Laboratory Data Labs 24H Laboratory Tests 2 06/18/20 18:22: Immature Granulocyte % (Auto) 0.4, Neutrophils (%) (Auto) 61.6, Lymphocytes (%) (Auto) 21.0L, Monocytes (%) (Auto) 12.1H, Eosinophils (%) (Auto) 4.5H, Basophils (%) (Auto) 0.4, Neutrophils # (Auto) 6.0, Lymphocytes # (Auto) 2.1, Monocytes # (Auto) 1.2H, Eosinophils # (Auto) 0.4, Basophils # (Auto) 0.0, Nucleated Red Blood Cells % (auto) 0.0, Prothrombin Time 14.5H, Prothromb Time International Ratio 1.11, Activated Partial Thromboplast Time 33.7, Anion Gap 10, Glomerular Filtration Rate 52.3, Lactic Acid Level 2.9*H, Calcium Level 8.6L, Total Bilir ubin 0.2, Direct Bilirubin < 0.1, Aspartate Amino Transf (AST/SGOT) 18, Alanine Aminotransferase (ALT/SGPT) 22, Alkaline Phosphatase 116, Ammonia < 10, Total Creatine Kinase 61, Creatine Kinase MB 1.9, Creatine Kinase MB Relative Index 3.11, Troponin I < 0.02, Total Protein 7.3, Albumin 3.4, Albumin/Globulin Ratio 0.9, Thyroid Stimulating Hormone (TSH) 4.160H, Salicylates Level < 1.7L, Urine Opiates Screen NEGATIVE, Urine Methadone Screen NEGATIVE, Acetaminophen Level < 2.0L, Urine Barbiturates Screen NEGATIVE, Urine Phencyclidine Screen NEGATIVE, Urine Amphetamines Screen NEGATIVE, Urine Benzodiazepines Screen NEGATIVE, Urine Cocaine Metabolite Screen NEGATIVE, Urine Cannabinoids Screen NEGATIVE, Ethyl Alcohol Level < 0.003 06/18/20 21:00: Urine Color YELLOW, Urine Appearance CLEAR, Urine pH 6.0, Urine Specific [place] 1.010, Urine Protein NEGATIVE, Urine Glucose (UA) NEGATIVE, Urine Ketones NEGATIVE, Urine Blood NEGATIVE, Urine Nitrite NEGATIVE, Urine Bilirubin NEGATIVE, Urine Urobilinogen 0.2, Urine Leukocyte Esterase NEGATIVE, Urine WBC (Auto) 1, Urine RBC (Auto) 2, Urine Hyaline Casts (Auto) 0, Urine Bacteria (Auto) NEGATIVE, Urine Squamous Epithelial Cells 0, Urine Sperm (Auto) , Urine Random Osmolality 422L, Urine Random Creatinine 53.1, Urine Random Sodium 81, Urine Random Potassium 19.2 06/18/20 23:20: Coronavirus (COVID-19)(PCR) NEGATIVE 06/18/20 23:47: Lactic Acid Followup at 4 Hours 0.9 06/18/20 23:48: Magnesium Level 1.9, Iron Level 20L, Total Iron Binding Capacity 330, Transf daysi % Saturation 6.1L, Ferritin 33 06/19/20 05:24: Magnesium Level 2.0, Iron Level 36L, Total Iron Binding Capacity 315, Transferrin % Saturation 11.4L, Ferritin 34, Nucleated Red Blood Cells % (auto) 0.0, Anion Gap 6L, Glomerular Filtration Rate > 60.0, Calcium Level 8.9 CBC/BMP Laboratory Tests 06/18/20 18:22 06/19/20 05:24 Microbiology Microbiology 06/18/20 Blood Culture, Received Pending Discharge Medications Scheduled Apixaban (Eliquis) 5 Mg Tablet, 5 MG PO BID, (Reported) Diltiazem HCl (Cartia Xt) 180 Mg Cap.er.24h, 180 MG PO DAILY, (Reported) Etanercept (Enbrel Sureclick) 50 Mg/1 Ml Pen.injctr, 50 MG SC QWEEK, (Reported) SATURDAY Levetiracetam (Keppra) 250 Mg Tablet, 500 MG PO BID Lisinopril (Lisinopril) 20 Mg Tablet, 20 MG PO BID, (Reported) Omeprazole (Omeprazole) 40 Mg Capsule.dr, 40 MG PO DAILY, (Reported) Saw [place] Fruit/Zinc Picoli (Saw [place] 450 mg Capsule) 1 Each Capsule, 450 MG PO BID, (Reported) Scheduled PRN Alprazolam (Alprazolam) 0.5 Mg Tablet, 0.5 MG PO TID PRN for ANXIETY, (Reported) Ketoconazole (Ketoconazole) 15 Gm Cream..g., 1 APLCT TOP BID PRN for RASH, (Reported) APPLY TO ARMS Triamcinolone Acet (Triamcinolone Acetonide 0.1% Crm) 80 Gm Cream..g., 1 APLCT TOP BID PRN for RASH/ITCHING, (Reported) APPLY TO ELBOWS Allergies Coded Allergies: No Known Allergies (Unverified , 09/22/12) CHRISTIAN ROBERT MD Jun 19, 2020 08:44
[2020-06-19] MEDS ORDERED: OMEPRAZOLE 20 MG CAP PO SCH (09:00)
[2020-06-19] MEDS ORDERED: lisinopriL 20 MG TAB PO SCH (09:00)
[2020-06-19] MEDS ORDERED: APIXABAN 5 MG TAB (ELIQUIS) PO SCH (09:00)
[2020-06-19] MEDS ORDERED: diltiaZEM **CD** 180 MG CAP PO SCH (09:00)
[2020-06-19 10:01] VITALS: BP 148/86
[2020-06-20 10:08] LABS: PROLACTIN 8.9 NG/ML (2.1-17.7)
[2020-06-20 10:10] LABS: FOLATE 12.8 NG/ML (>5.4)
== END 2020-06-19 10:44 | disposition home or self-care (01) | DRG 101 ==
LOC: M ED 17:46 → EDBD 17:46 → M ED INP 22:42 → M PCU 06-19 01:55
PROVIDERS: ADMIT Internal Medicine; ATTEND General Practice
DX: G40.909 Epilepsy, unspecified, not intractable, without status epilepticus (principal); N17.9 Acute kidney failure, unspecified; E87.2 Acidosis; I67.82 Cerebral ischemia; M06.9 Rheumatoid arthritis, unspecified; I10 Essential (primary) hypertension; I16.0 Hypertensive urgency; K21.9 Gastro-esophageal reflux disease without esophagitis; N40.0 Benign prostatic hyperplasia without lower urinary tract symptoms; I48.0 Paroxysmal atrial fibrillation; F41.9 Anxiety disorder, unspecified; R00.0 Tachycardia, unspecified; K58.9 Irritable bowel syndrome, unspecified; D64.9 Anemia, unspecified; E66.9 Obesity, unspecified; Z68.31 Body mass index [BMI] 31.0-31.9, adult; Z79.01 Long term (current) use of anticoagulants; Z79.899 Other long term (current) drug therapy; Z91.14 Patient's other noncompliance with medication regimen; Z20.828 Contact with and (suspected) exposure to other viral communicable diseases

== ENCOUNTER 2020-07-15 15:59 | Inpatient (IN) | payer MEDICARE, OTHER ==
[~2020-07-15] VITALS: Ht 185.4 cm; Wt 104.0 kg
[~2020-07-15 15:59] MED LIST changes: +ELIQ5TAB PO
[2020-07-15] MEDS ORDERED: LORazepam 2 MG/ML VIAL IV STA ×2 (16:08→17:17)
[2020-07-15] MEDS ORDERED: levETIRAcetam INJection 1,000 MG in D5W 100 ML IV ONE (16:30)
[2020-07-15 16:38] LABS: BASO # 0.1 10^3/uL (0.0-0.2); BASO % 0.6 % (0.0-1.0); EOS # 0.3 10^3/uL (0.0-0.5); EOS % 3.2 % (0.0-3.0); HEMATOCRIT 34.8 % (42.0-52.0); HEMOGLOBIN 11.4 g/dl (13.5-17.5); LYMPH # 2.3 10^3/uL (1.5-5.0); LYMPH % 24.2 % (24.0-44.0); MEAN CORPUSCULAR HEMOGLOBIN 28.4 pg (27.0-33.0); MEAN CORPUSCULAR HGB CONC 32.8 g/dl (32.0-36.5); MEAN CORPUSCULAR VOLUME 86.6 fl (80.0-96.0); MONO # 1.1 10^3/uL (0.0-0.8); MONO % 11.5 % (0.0-5.0); NEUTROPHILS # 5.6 10^3/uL (1.5-8.5); NEUTROPHILS % 60.3 % (36.0-66.0); PLATELET COUNT, AUTOMATED 356 10^3/uL (150-450); RED BLOOD COUNT 4.02 10^6/uL (4.30-6.10); WHITE BLOOD COUNT 9.3 10^3/uL (4.0-10.0)
--- NOTE | 2020-07-15 16:45 | REP ---
INDICATION: CVA. COMPARISON: Comparison chest x-ray June 18, 2020. TECHNIQUE: Portable upright AP chest radiograph. FINDINGS: The lungs are exposed at a somewhat lesser level of inspiration. There is platelike atelectasis in the right base. No definite infiltrate is seen. Heart is mildly enlarged. Pulmonary vasculature is not increased. There is no evidence of pleural effusion.. Monitoring electrodes are seen overlying the chest. The aorta is tortuous and calcific. IMPRESSION: Right base platelike atelectasis. Mildly prominent heart. Otherwise no acute disease.. <Electronically signed by Fabian Mccarthy > 07/15/20 [id number]
[2020-07-15 16:52] LABS: INR 1.15; PARTIAL THROMBOPLASTIN TIME 39.4 SECONDS (24.2-38.5)
--- NOTE | 2020-07-15 16:59 | REP ---
INDICATION: CVA - Nursing interventions must not delay CT. COMPARISON: Comparison head CT study June 18, 2020.. TECHNIQUE: Helical scanning is acquired. 5 mm axial images were reformatted. Coronal MPR images were generated. FINDINGS: Bone window settings show no bony destructive lesion. Vascular calcification is noted as before. Visualized paranasal sinuses are clear. On soft tissue window settings there is jsuk-fm-[id number] generalized volume loss again noted. There is no evidence of intracranial hemorrhage. No acute infarction is seen. No mass, extra-axial fluid collection, or midline shift is observed. IMPRESSION: Generalized volume loss. Vascular calcification. No acute intracranial abnormality.. <Electronically signed by Fabian Mccarthy > 07/15/20 3602
[2020-07-15 17:07] LABS: ALBUMIN 3.6 GM/DL (3.2-5.2); ALT/SGPT 23 U/L (12-78); BILIRUBIN,DIRECT 0.1 MG/DL (0.0-0.2); BILIRUBIN,TOTAL 0.2 MG/DL (0.2-1.0); BLOOD UREA NITROGEN 17 MG/DL (7-18); CALCIUM LEVEL 9.7 MG/DL (8.8-10.2); CARBON DIOXIDE LEVEL 23 MEQ/L (21-32); CHLORIDE LEVEL 99 MEQ/L (98-107); CK-MB VALUE MASS 2.2 NG/ML (<3.6); CPK CREATINE PHOSPHOKINASE 76 U/L (39-308); CREATININE FOR GFR 1.26 MG/DL (0.70-1.30); GLOMERULAR FILTRATION RATE 58.9 (>42); GLUCOSE, FASTING 115 MG/DL (70-100); MB/CK RELATIVE INDEX 2.89 (< OR =4); POTASSIUM SERUM 4.6 MEQ/L (3.5-5.1); SODIUM LEVEL 132 MEQ/L (136-145); TOTAL PROTEIN 7.7 GM/DL (6.4-8.2); TROPONIN I < 0.02 NG/ML (< 0.10)
[2020-07-15] MEDS ORDERED: PANT20TA51 PO (18:47)
[2020-07-15] MEDS ORDERED: LEVE250T5 PO (18:48)
[2020-07-15] MEDS ORDERED: SODI1TAB6 PO (18:51)
[2020-07-15] MEDS ORDERED: MAGN400T2 PO (18:51)
[2020-07-15] MEDS ORDERED: EQL50TAB2 PO (18:51)
[2020-07-15] MEDS ORDERED: DOCU100C16 PO (18:51)
[2020-07-15] MEDS ORDERED: MAALOX 30 ML SUSP *UDC PO PRN (19:15)
[2020-07-15] MEDS ORDERED: ACETAMINOPHEN TAB 650MG DOSE (2X325MG) PO PRN (19:15)
[2020-07-15] MEDS ORDERED: MOM 30ML SUSPENSION UDC PO PRN (19:15)
--- NOTE | 2020-07-15 19:18 | HPEPDOC ---
[facility] Medical History & Physical Date of Admission Jul 15, 2020 Date of Service: Jul 15, 2020 Attending Physician: TI GUPTA MD History and Physical TIME OF SERVICE: 930pm CHIEF COMPLAINT: seizures HISTORY OF PRESENT ILLNESS: This 80 yr old M was sent to the hospital with EMS by his karri of multiple episodes of seizures; at the time of my evaluation the patient was alert but unable to talk and inconsistently following my commands. He shook his head no when asked if he had pain. discussed the case with who recommended increasing Kepra to 1000 mg BID REVIEW OF SYSTEMS: incomplete bc pt is not confused Seizure disorder diagnosed Feb 2020 Small Vessel Ischemic disease RA Chronic HTN GERD Umbilical hernia BPH Paroxysmal afib Anxiety Irritable Bowel Syndrome SOCIAL HISTORY: He doesnt smoke and lives with his FAMILY HISTORY: hx of lung cancer ALLERGIES: Please see below. HOME MEDICATIONS: Please see below. PHYSICAL EXAMINATION: Vital Signs Date Time Temp Pulse Resp B/P (MAP) Pulse Ox O2 Delivery O2 Flow Rate FiO2 07/15/20 16:07 97 20 199/98 98 Room Air 07/15/20 17:02 99.3 GENERAL APPEARANCE: alert HEENT: EOMI /blood around mouth CARDIOVASCULAR: RRR/NMRG LUNGS: CTAB on RA / RR 26 ABDOMEN: obese NEUROLOGICAL: pupils reactive but sluggish / having what appear to be focal seizures affecting right upper face and tremors of the right hand /unable to speak PSYCHIATRIC: alert / inconsistently following commands LABORATORY DATA: IMAGING: CT head IMPRESSION: Generalized volume loss. Vascular calcification. No acute intracranial abnormality Chest xray IMPRESSION: Right base platelike atelectasis. Mildly prominent heart. Otherwise no acute disease. MICROBIOLOGY: respiratory panel neg ASSESSMENT: is a 79 yr old w a hx of seizure disorder, HTN, RA, small vessel ischemic disease, parox afib, anxiety, IBS and BPH who is admitted for evaluation of seizures. PLAN: 1 Seizures Possibly 2/2 not taking Keppra, Plan: admit to PCU / fall precautions/ seizure precautions/ frequent neuro edgar cks / f/u prolactin and serum Keppra levels, UA, Mag, phosphorus, / Ativan 2mg IV Q2H PRN seizures / Keppra 1000mg BID 2. Fever Likely central 2/2 seizures Plan: if reoccurs will order blood cx 3. NN Anemia Plan; f/u iron studies 4. Hyponatremia Plan: f/u Uosmo, Gaby, Serum osmol 5. Uncontrolled HTN / Small Vessel Ischemic disease Plan: Cardizem & Lisinopril 6. RA Plan: was on etanercept last admission /f/u w Rheum on out pt basis 7. Paroxysmal afib Plan: telemetry / diltiazem and apixaban DVT Px n/a on DOAC Dispo: home after more than 2 midnights stay Laboratory Data Labs 24H Laboratory Tests 2 07/15/20 16:14: Immature Granulocyte % (Auto) 0.2, Neutrophils (%) (Auto) 60.3, Lymphocytes (%) (Auto) 24.2, Monocytes (%) (Auto) 11.5H, Eosinophils (%) (Auto) 3.2H, Basophils (%) (Auto) 0.6, Neutrophils # (Auto) 5.6, Lymphocytes # (Auto) 2.3, Monocytes # (Auto) 1.1H, Eosinophils # (Auto) 0.3, Basophils # (Auto) 0.1, Nucleated Red Blood Cells % (auto) 0.0, Prothrombin Time 15.0H, Prothromb Time International Ratio 1.15, Activated Partial Thromboplast Time 39.4H, Anion Gap 10, Glomerular Filtration Rate 58.9, Calcium Level 9.7, Total Bilirubin 0.2, Direct Bilirubin 0.1, Aspartate Amino Transf (AST/SGOT) 17, Alanine Aminotransferase (ALT/SGPT) 23, Alkaline Phosphatase 123H, Total Creatine Kinase 76, Creatine Kinase MB 2.2, Creatine Kinase MB Relative Index 2.89, Troponin I < 0.02, Total Protein 7.7, Albumin 3.6, Albumin/Globulin Ratio 0.9 07/15/20 16:22: CBC/BMP Laboratory Tests 07/15/20 16:14 Microbiology Microbiology 07/15/20 Respiratory Virus Panel (PCR) ([facility]), Received Pending Home Medications Scheduled Apixaban (Eliquis) 5 Mg Tablet, 5 MG PO BID Diltiazem HCl (Cartia Xt) 180 Mg Cap.er.24h, 180 MG PO BID Docusate Sodium (Docusate Sodium) 100 Mg Capsule, 100 MG PO BID Levetiracetam (Levetiracetam) 250 Mg Tablet, 250 MG PO BID Lisinopril (Lisinopril) 20 Mg Tablet, 20 MG PO BID Magnesium Oxide (Magnesium Oxide) 400 Mg Tablet, 400 MG PO DAILY Pantoprazole Sodium (Pantoprazole Sodium) 20 Mg Tablet.dr, 20 MG PO DAILY Saw [place] Fruit/Zinc Picoli (Saw [place] 450 mg Capsule) 1 Each Capsule, 450 MG PO BID Sodium Chloride (Sodium Chloride) 1 Gm Tablet, 1 GM PO BID Vitamin B Complex (Vitamin B Complex) 1 Each Tablet, 1 TAB PO DAILY Allergies Coded Allergies: No Known Allergies (Unverified , 09/22/12) A-FIB/CHADSVASC A-FIB History Current/History of A-Fib/PAF?: No Current PO Anticoag Therapy: No TI GUPTA MD Jul 15, 2020 19:18
[2020-07-15 20:50] LABS: MAGNESIUM LEVEL 1.7 MG/DL (1.8-2.4); PHOSPHORUS LEVEL 3.6 MG/DL (2.5-4.9)
[2020-07-15 21:02] LABS: OSMOLALITY URINE 322 MOSM/KG (500-800)
[2020-07-15 21:02] LABS: PROLACTIN 11.8 NG/ML (2.1-17.7)
[2020-07-15 21:07] LABS: PERCENT SATURATION 8.8 % (19.7-50.0)
[2020-07-15 21:09] LABS: FOLATE 14.6 NG/ML (>5.4)
--- NOTE | 2020-07-15 21:13 | ECGEPIP ---
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
[2020-07-15 21:14] LABS: APPEARANCE, URINE HAZY (CLEAR); BACTERIA, URINE AUTO NEGATIVE (NEGATIVE); BILIRUBIN, URINE AUTO NEGATIVE (NEGATIVE); BLOOD, URINE BLOOD NEGATIVE (NEGATIVE); COLOR, URINE YELLOW (YELLOW); GLUCOSE, URINE (UA) AUTO NEGATIVE (NEGATIVE); KETONE, URINE AUTO NEGATIVE (NEGATIVE); LEUKOCYTE ESTERASE, URINE AUTO NEGATIVE (NEGATIVE); MUCUS, URINE SMALL (NEGATIVE); NITRITE, URINE AUTO NEGATIVE (NEGATIVE); PROTEIN, URINE AUTO NEGATIVE (NEGATIVE); RBC, URINE AUTO 8 /HPF (0-3); SPECIFIC GRAVITY URINE AUTO 1.008 (1.002-1.035); SQUAMOUS EPITHELIAL CELL UR AU 0 /HPF (0-6); UROBILINOGEN, URINE AUTO 0.2 mg/dL (0.0-2.0); WBC, URINE AUTO 2 /HPF (0-3)
[2020-07-15 21:20] LABS: SODIUM,RANDOM URINE 86 MEQ/L
[2020-07-16] VITALS (8 sets, daily range): BP systolic 145–172; BP diastolic 74–96
[2020-07-16] MEDS ORDERED: MAGIC MOUTHWASH SUSPENSION BTL SS PRN (00:45)
[2020-07-16 06:15] LABS: HEMATOCRIT 35.1 % (42.0-52.0); HEMOGLOBIN 11.8 g/dl (13.5-17.5); MEAN CORPUSCULAR HEMOGLOBIN 28.4 pg (27.0-33.0); MEAN CORPUSCULAR HGB CONC 33.6 g/dl (32.0-36.5); MEAN CORPUSCULAR VOLUME 84.6 fl (80.0-96.0); PLATELET COUNT, AUTOMATED 339 10^3/uL (150-450); RED BLOOD COUNT 4.15 10^6/uL (4.30-6.10); WHITE BLOOD COUNT 8.9 10^3/uL (4.0-10.0)
[2020-07-16 06:28] LABS: BLOOD UREA NITROGEN 14 MG/DL (7-18); CALCIUM LEVEL 9.3 MG/DL (8.8-10.2); CARBON DIOXIDE LEVEL 23 MEQ/L (21-32); CHLORIDE LEVEL 101 MEQ/L (98-107); CREATININE FOR GFR 1.16 MG/DL (0.70-1.30); GLOMERULAR FILTRATION RATE > 60.0 (>42); GLUCOSE, FASTING 100 MG/DL (70-100); POTASSIUM SERUM 4.4 MEQ/L (3.5-5.1); SODIUM LEVEL 132 MEQ/L (136-145)
[2020-07-16] MEDS ORDERED: MAGNESIUM OXIDE 400 MG TAB (MAG-OX) PO SCH (09:00)
[2020-07-16] MEDS ORDERED: PANTOPRAZOLE 20 MG TAB PO SCH (09:00)
[2020-07-16] MEDS: SODIUM CHLORIDE 1 GM TAB PO SCH ×2 (09:13→20:25)
[2020-07-16] MEDS: levETIRAcetam 250MG TABLET (KEPPRA) PO SCH ×2 (09:13→20:24)
[2020-07-16] MEDS: DOCUSATE SODIUM 100MG CAPSULE PO SCH ×2 (09:13→20:25)
[2020-07-16] MEDS: diltiaZEM **CD** 180 MG CAP PO SCH ×2 (09:13→20:25)
[2020-07-16] MEDS: APIXABAN 5 MG TAB (ELIQUIS) PO SCH ×2 (09:13→20:25)
[2020-07-16] MEDS: lisinopriL 20 MG TAB PO SCH ×2 (09:14→20:25)
--- NOTE | 2020-07-16 09:53 | IPNPDOC ---
Text Note Date of Service The patient was seen on 07/16/20. NOTE Subjective: Patient somnolent in the morning, his speech is garbled Objective: GENERAL APPEARANCE: Somnolent HEENT: no scleral icterus, no JVD, EOMI CARDIOVASCULAR: S1S2 LUNGS: CTA ABDOMEN: soft & not tender w palpitation MUSCULOSKELETAL: no cyanosis, no swelling INTEGUMENT: no generalized pallor NEUROLOGICAL: focal seizures affecting right upper face and tremors of the right hand Assessment and plan Patient is 80 yr old M was sent to the hospital with EMS by his bc of multiple episodes of seizures; at the time of my evaluation the patient was alert but unable to talk and inconsistently following my commands. He shook his head no when asked if he had pain. discussed the case with who recommended increasing Kepra to 1000 mg BID Seizures Most likely noncompliance to Keppra Continue increased dose of Keppra 1000 mg twice a day Speech evaluation Ativan PRN for seizure Appreciated/agree with neurologist consult Fever Likely central 2/2 seizures Patient does not have leukocytosis NN Anemia Follow-up with PCP for workup Hyponatremia Await Gaby, Serum osmol Uncontrolled HTN / Small Vessel Ischemic disease Added Norvasc RA f/u w Rheum on out pt basis Paroxysmal afib telemetry / diltiazem and apixaban VS,Fishbone, I+O VS, Fishbone, I+O Laboratory Tests 07/15/20 16:14 07/16/20 05:49 Vital Signs Date Time Temp Pulse Resp B/P (MAP) Pulse Ox O2 Delivery O2 Flow Rate FiO2 07/16/20 09:13 95 170/82 07/16/20 08:03 100.4 20 97 Room Air I&O- Last 24 Hours up to 6 AM 07/16/20 06:00 Intake Total 0 ml Balance 0 ml MOLINA GOLDSMITH DO Jul 16, 2020 09:53
[2020-07-16] MEDS ORDERED: amLODIPine 10 MG TAB PO ONE (10:00)
[2020-07-16] MEDS ORDERED: hydrALAZINE 20MG/ML 1ML VIAL (J0360 PER 20MG) IV STA (13:10)
[2020-07-16] MEDS ORDERED: LORazepam 2 MG/ML VIAL IV STA (13:10)
[2020-07-16] MEDS ORDERED: PHENYTOIN INJ 250 MG/5 ML VIAL (J1165) IV ONE (16:30)
[2020-07-16] MEDS ORDERED: LACOSAMIDE 10MG/ML 20ML VIAL (VIMPAT) IV ONE (16:30)
[2020-07-16] MEDS: LORazepam 2 MG/ML VIAL IV PRN (20:53)
[2020-07-16] MEDS ORDERED: LACOSAMIDE 50 MG TAB (VIMPAT) PO SCH (21:00)
[2020-07-16] MEDS ORDERED: PHENYTOIN ER 100 MG CAP PO SCH (22:00)
[2020-07-17] VITALS: BP 139/73
[2020-07-17 04:00] VITALS: BP 142/73
[2020-07-17] MEDS: LORazepam 2 MG/ML VIAL IV PRN ×3 (05:04→22:03)
--- NOTE | 2020-07-17 05:34 | IPNPDOC ---
Text Note Date of Service The patient was seen on 07/17/20. NOTE Code 25 was called early this morning because the pt was trying to get out of bed and walk out of his room. Glucose 87 PE: has facial twitching that improved with once the Ativan took effect I suspect he is still having focal seizures despite the current regimen; I will ask the day time Hospitalist to reconsulting Neuro to titrate the patient's anti-epileptics. VS,Fishbone, I+O VS, Fishbone, I+O Laboratory Tests 07/16/20 05:49 Vital Signs Date Time Temp Pulse Resp B/P (MAP) Pulse Ox O2 Delivery O2 Flow Rate FiO2 07/17/20 04:00 98.1 100 18 142/73 (96) 99 Room Air I&O- Last 24 Hours up to 6 AM 07/17/20 06:00 Intake Total 0 ml Output Total 1575 ml Balance -1575 ml TI GUPTA MD Jul 17, 2020 05:34
[2020-07-17 08:14] VITALS: BP 134/66
[2020-07-17 08:57] LABS: BASO # 0.1 10^3/uL (0.0-0.2); BASO % 0.4 % (0.0-1.0); EOS # 0.2 10^3/uL (0.0-0.5); EOS % 1.7 % (0.0-3.0); HEMATOCRIT 35.4 % (42.0-52.0); HEMOGLOBIN 11.7 g/dl (13.5-17.5); LYMPH # 2.1 10^3/uL (1.5-5.0); LYMPH % 18.7 % (24.0-44.0); MEAN CORPUSCULAR HEMOGLOBIN 28.3 pg (27.0-33.0); MEAN CORPUSCULAR HGB CONC 33.1 g/dl (32.0-36.5); MEAN CORPUSCULAR VOLUME 85.7 fl (80.0-96.0); MONO # 1.4 10^3/uL (0.0-0.8); MONO % 12.6 % (0.0-5.0); NEUTROPHILS # 7.4 10^3/uL (1.5-8.5); NEUTROPHILS % 66.2 % (36.0-66.0); PLATELET COUNT, AUTOMATED 348 10^3/uL (150-450); RED BLOOD COUNT 4.13 10^6/uL (4.30-6.10); WHITE BLOOD COUNT 11.2 10^3/uL (4.0-10.0)
[2020-07-17] MEDS ORDERED: amLODIPine 10 MG TAB PO SCH (09:00)
--- NOTE | 2020-07-17 09:18 | IPNPDOC ---
Text Note Date of Service The patient was seen on 07/17/20. NOTE Subjective: Patient is a 72-year-old male with a PMHx of HTN, Paroxysmal A. fib (on Eliquis), Seizures (Dx 02/2020), Anxiety, RA, BPH, Irritable bowel syndrome, GERD who presented to the hospital because of multiple episodes of seizure while at home. Patient was admitted to the hospitalist service for further evaluation and treatment, and urology was called on consultation. Patient appears to continue to experience right facial twitches. Patient was seen and examined at the bedside. Patient was able to follow commands was oriented to person, but was unable to answer any questions discernibly. Objective: Vitals (See below) General: Sitting up in bed, no acute distress, comfortable, follows commands, answers his name HEENT: NC, AT CVS: +S1S2 Lungs: Course lung sounds bilaterally, mucous secretions noted, no crackles / wheezing Abdomen: Soft, ND, NT Extremities: - Edema, - Calf tenderness Assessment and plan: Facial twitches / Seizures - possibly 2/2 underlying seizure disorder - Currently continues to experience facial twitches - No focal neurologic deficits noted - CT head 07/15: Generalized volume loss. Vascular calcification. No acute intracranial abnormality.. - Will get MRI brain with and without contrast - Neurology on consultation; c/w Keppra and Lacosamide - case discussed Dysphagia / Possible aspiration - Hemodynamically stable / Febrile episodes initially - however had resolved - Leukocytosis noted this morning - CXR 07/15: Right base platelike atelectasis. Mildly prominent heart. Otherwise no acute disease.. - Will get repeat CXR - Will check procalcitonin - Speech evaluation Normocytic anemia - Hemoglobin appears to be stable Hyponatremia - hypotonic euvolemic etiology - Awaiting AM lab work HTN - BP well controlled - c/w Lisinopril and Amlodipine Paroxysmal A. fib - Continue with rate control with diltiazem - Continue with full anticoagulation with Eliquis RA - Will have outpatient follow-up with rheumatology GERD - c/w Protonix DVT prophylaxis - c/w full anticoagulation with Eliquis VS,Fishbone, I+O VS, Fishbone, I+O Laboratory Tests 07/17/20 08:47 Vital Signs Date Time Temp Pulse Resp B/P (MAP) Pulse Ox O2 Delivery O2 Flow Rate FiO2 07/17/20 08:14 98.0 91 20 134/66 (88) 97 Room Air I&O- Last 24 Hours up to 6 AM 07/17/20 06:00 Intake Total 0 ml Output Total 1575 ml Balance -1575 ml URSULA BETANCUR MD Jul 17, 2020 09:18
[2020-07-17 09:35] LABS: ALBUMIN 3.5 GM/DL (3.2-5.2); BILIRUBIN,TOTAL 0.6 MG/DL (0.2-1.0); CALCIUM LEVEL 9.4 MG/DL (8.8-10.2); CREATININE FOR GFR 1.66 MG/DL (0.70-1.30); GLOMERULAR FILTRATION RATE 42.9 (>42); MAGNESIUM LEVEL 1.9 MG/DL (1.8-2.4); POTASSIUM SERUM 4.7 MEQ/L (3.5-5.1); TOTAL PROTEIN 7.5 GM/DL (6.4-8.2)
[2020-07-17] MEDS: levETIRAcetam INJection 1,000 MG in D5W 100 ML IV SCH ×2 (09:43→22:14)
--- NOTE | 2020-07-17 10:19 | REP ---
INDICATION: Rhonchi. COMPARISON: 07/15/2020 TECHNIQUE: Portable FINDINGS: The technique utilized in obtaining the radiograph has magnified the cardiac silhouette and accentuated the interstitial markings. Persistent mediastinal widening and accentuated by technique. Finding is unchanged compared to an older radiograph of 03/22/2020. The right basilar opacities seen previously have cleared. There are no new abnormal opacities. The pleural angles are sharp. The osseous structures are unchanged. IMPRESSION: There is no acute cardiopulmonary disease. The lung lozoya have improved. <Electronically signed by Jose Lopes > 07/17/20 1013
[2020-07-17] MEDS ORDERED: NS 1,000 ML IV SCH (11:00)
[2020-07-17] MEDS: LACOSAMIDE 10MG/ML 20ML VIAL (VIMPAT) IV SCH ×2 (11:54→22:14)
--- NOTE | 2020-07-17 11:57 | REPVR ---
PROCEDURE INFORMATION: Exam: MR Head Without Contrast Exam date and time: 07/17/2020 11:04 AM Age: 80 years old Clinical indication: Speech disturbance and other: Seizure; Slurred speech; Additional info: Seizure / TECHNIQUE: Imaging protocol: MR of the head without contrast. COMPARISON: MRI-Brain without Contrast 03/22/2020 12:52 PM FINDINGS: Brain: There are small stable foci of increased T2/FLAIR signal in the periventricular white matter related to the sequela prior small vessel ischemia. There are multiple foci of restricted diffusion in the anterior subarachnoid space unchanged, a nonspecific finding which could be artifactual. No parenchymal diffusion abnormalities present. There is no susceptibility sequence performed, but the prior exam demonstrated no evidence of siderosis. Cerebral ventricles: The ventricles and CSF spaces are proportionately enlarged. Bones/joints: Unremarkable. Paranasal sinuses: Normal as visualized. No acute sinusitis. Mastoid air cells: There is stable fluid in the right mastoid air cells. Orbital cavity: There are postoperative changes from prior cataract surgery. Soft tissues: Unremarkable. IMPRESSION: 1. There is no acute intracranial abnormality. 2. Stable findings. Electronically signed by: Evan Chilel On 07/17/2020 11:57:33 AM
[2020-07-17 12:00] VITALS: BP 134/68
--- NOTE | 2020-07-17 13:31 | REP ---
INDICATION: NG tube placement. COMPARISON: Earlier today TECHNIQUE: Portable FINDINGS: The technique utilized in obtaining the radiograph has magnified the cardiac silhouette and accentuated the interstitial markings. The cardiomediastinal silhouette is unchanged the lung lozoya are unchanged. The pleural angles are unchanged. The osseous structures are unchanged. There is a curvilinear radiodensity seen coursing the esophagus the tip of which is beneath the diaphragmatic surface of the left lung presumably within the stomach body. IMPRESSION: Nasogastric tube as described above otherwise no significant change compared to the prior exam <Electronically signed by Jose Lopes > 07/17/20 1113
[2020-07-17] MEDS: D5W/0.9% SODIUM CHLORIDE 1,000 ML IV SCH (13:33)
[2020-07-17] MEDS: PANTOPRAZOLE 40MG VIAL (C9113 PER 1) IV SCH (13:36)
[2020-07-17] MEDS: SODIUM CHLORIDE 1 GM TAB PO SCH ×2 (13:42→22:11)
[2020-07-17] MEDS: APIXABAN 5 MG TAB (ELIQUIS) NG SCH ×2 (13:42→22:12)
[2020-07-17] MEDS ORDERED: ACETAMINOPHEN 325 MG/10.15 ML UDC NG PRN (15:15)
[2020-07-17 16:00] VITALS: BP 143/65
[2020-07-17] MEDS ORDERED: GLUCOSE 4GM CHEW TABLET PO PRN (16:45)
[2020-07-17] MEDS ORDERED: DEXTROSE 50% 50 ML SYRINGE IV PRN (16:45)
[2020-07-17] MEDS ORDERED: GLUCAGON INJ 1MG VIAL SC PRN (16:45)
[2020-07-17 17:15] LABS: HEMOGLOBIN A1c 5.7 %
--- NOTE | 2020-07-17 17:47 | CR ---
CONSULTATION DATE: 07/16/2020 REFERRING PHYSICIAN: Dr. Shaan Fernández. REASON FOR CONSULTATION: Right-sided facial twitches and speech alteration. HISTORY OF PRESENT ILLNESS: Shine Perdomo is a 80-year-old man who was brought to [facility] by due to multiple episodes of right-sided facial twitching. He also had difficulty speaking. He had occasional difficulty following commands. Patient had a generalized tonic-clonic seizure in 2019. He was admitted at [facility] as well within the last six months. I do not know the reason of this admission at [facility] at this time. Patient continued to have right-sided facial twitching. He was noted to have intermittent trouble swallowing. He had increased secretions in his mouth. We increased dose of his Keppra and patient received Ativan earlier in the day, but continues to have intermittent right-sided facial twitching. Patient denies any headaches, neck pain, back pain, double vision, falls, loss of consciousness or head injuries. PAST MEDICAL HISTORY: 1. Seizure in February 2020. 2. Small vessel ischemic disease of brain. 3. Rheumatoid arthritis. 4. Hypertension. 5. Acid reflux. 6. Prostate enlargement. 7. Paroxysmal atrial fibrillation. 8. Anxiety. 9. Irritable bowel syndrome. SOCIAL HISTORY: He denies smoking, alcohol or illicit drugs. He lives with his . FAMILY HISTORY: Significant for lung cancer. REVIEW OF SYSTEMS: All systems were reviewed with patient and found to be noncontributory except as mentioned in the history of present illness. ALLERGIES: None. HOME MEDICATIONS: - Eliquis 5 mg by mouth twice a day - diltiazem XL 180 mg by mouth twice a day - Keppra 250 mg by mouth twice a day - lisinopril 20 mg by mouth twice a day - Protonix 20 mg by mouth daily - sodium chloride 1 gram by mouth twice a day PHYSICAL EXAMINATION: Temperature 98.3, pulse 100, respiratory 16, blood pressure 168/92, 99% saturations on room air. LUNGS: Clear to auscultation. HEART: Regular rate and rhythm. ABDOMEN: Soft, nontender, non-distended. No pedal edema. Joint deformities are noted due to rheumatoid arthritis. Patient is awake, alert, oriented to place and person. He was unable to tell me day, date, month, year, name of President. His speech appears dysarthric and difficult to understand at times. At times he appears to have difficulty following two-step commands. He is able to follow simple one-step commands. No facial weakness. Tongue, uvula midline. Extraocular muscles are intact. No nystagmus. Minimal tremor is noted of hands. He has right-sided facial twitching affecting his right cheek and lower jaw area on right side only. It does not reach up to his eyes or frontal head region. Strength 5/5 in all four extremities. Deep tendon reflexes are 1+ throughout. He has decreased cold sensation in left foot. Gait could not be tested. DIAGNOSTIC STUDIES: MRI of the brain in February 2020 was reviewed and showed mild atrophy and small vessel ischemic disease of brain. CT scan of head and cervical spine showed degenerative disc disease, mild atrophy and small vessel ischemic disease of brain. Serum sodium was 132. Vitamin B12 was 586. Prolactin 11.8. Folic acid 14.6. Hemoglobin 11.8. ASSESSMENT: 1. 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 2. There is concern for simple partial focal motor seizure affecting right side of face and history of grand mal seizure in February 2020. 3. Paroxysmal atrial fibrillation and patient is on Eliquis. PLAN: 1. Continue Keppra 1000 mg by mouth twice a day. 2. Add Vimpat 200 mg intravenous (IV) followed by 100 mg by mouth twice a day. These medications can be given intravenously as well if he is unable to swallow. Avoid Dilantin, Tegretol and Trileptal due to interaction with Eliquis. 3. MRI scan of brain with and without contrast to rule out structural abnormality in left frontal and parietal head region. 4. Electroencephalogram (EEG). 5. Continue Eliquis 5 mg by mouth twice a day and follow with Dr. Tomlinson in our office as planned.
[2020-07-17 20:00] VITALS: BP 124/58
[2020-07-18] VITALS: BP 118/63
[2020-07-18] MEDS: D5W/0.9% SODIUM CHLORIDE 1,000 ML IV SCH ×2 (03:18→14:15)
[2020-07-18 04:00] VITALS: BP 144/75
[2020-07-18] MEDS: LORazepam 2 MG/ML VIAL IV PRN ×3 (05:36→19:37)
[2020-07-18 08:00] VITALS: BP 142/65
[2020-07-18 08:04] LABS: BASO % 0.4 % (0.0-1.0); EOS # 0.3 10^3/uL (0.0-0.5); EOS % 4.2 % (0.0-3.0); HEMATOCRIT 35.1 % (42.0-52.0); HEMOGLOBIN 11.4 g/dl (13.5-17.5); LYMPH % 25.8 % (24.0-44.0); MEAN CORPUSCULAR HEMOGLOBIN 28.2 pg (27.0-33.0); MEAN CORPUSCULAR HGB CONC 32.5 g/dl (32.0-36.5); MEAN CORPUSCULAR VOLUME 86.9 fl (80.0-96.0); MONO % 12.7 % (0.0-5.0); NEUTROPHILS # 4.3 10^3/uL (1.5-8.5); NEUTROPHILS % 56.6 % (36.0-66.0); PLATELET COUNT, AUTOMATED 301 10^3/uL (150-450); RED BLOOD COUNT 4.04 10^6/uL (4.30-6.10); WHITE BLOOD COUNT 7.7 10^3/uL (4.0-10.0)
[2020-07-18 08:29] LABS: ALBUMIN 3.1 GM/DL (3.2-5.2); BILIRUBIN,TOTAL 0.5 MG/DL (0.2-1.0); CREATININE FOR GFR 1.47 MG/DL (0.70-1.30); GLOMERULAR FILTRATION RATE 49.3 (>42); POTASSIUM SERUM 4.4 MEQ/L (3.5-5.1); TOTAL PROTEIN 6.8 GM/DL (6.4-8.2)
[2020-07-18] MEDS: APIXABAN 5 MG TAB (ELIQUIS) NG SCH ×2 (09:09→22:35)
[2020-07-18] MEDS: SODIUM CHLORIDE 1 GM TAB PO SCH ×2 (09:09→22:35)
[2020-07-18] MEDS: LACOSAMIDE 10MG/ML 20ML VIAL (VIMPAT) IV SCH ×2 (09:09→22:35)
[2020-07-18] MEDS: levETIRAcetam INJection 1,000 MG in D5W 100 ML IV SCH ×2 (09:09→22:35)
--- NOTE | 2020-07-18 09:27 | IPNPDOC ---
Text Note Date of Service The patient was seen on 07/18/20. NOTE Subjective: Patient is a 72-year-old male with a PMHx of HTN, Paroxysmal A. fib (on Eliquis), Seizures (Dx 02/2020), Anxiety, RA, BPH, Irritable bowel syndrome, GERD who presented to the hospital because of multiple episodes of seizure while at home. Patient was admitted to the hospitalist service for further evaluation and treatment, and urology was called on consultation. Patient was seen and examined at the bedside. Patient was able to answer his name and where he was was able to follow commands. He denied any pain. Denies any chest pain, shortness breath or cough. Objective: Vitals (See below) General: Laying in bed, appears to be comfortable NG tube in place, is oriented to person, place, also noted with the president was HEENT: NC, AT CVS: +S1S2 Lungs: Air entry is fair bilaterally without any appreciated, rhonchi, crackles or wheezing Abdomen: Soft, non-distended, non-tender Extremities: No evidence of edema, - Calf tenderness Assessment and plan: Facial twitches / Seizures - possibly 2/2 underlying seizure disorder - Abdomen. Last facial twitches noted this morning - Again there is no focal neurologic deficits noted - CT head 07/15: Generalized volume loss. Vascular calcification. No acute intracranial abnormality.. - MRI brain 07/17: 1. There is no acute intracranial abnormality. 2. Stable findings. - Neurology on consultation; c/w Keppra and Lacosamide - case discussed Dysphagia / Possible aspiration - Hemodynamically stable / Remain afebrile - s/p Leukocytosis - CXR 07/15: Right base platelike atelectasis. Mildly prominent heart. Otherwise no acute disease.. - CXR 07/17: Nasogastric tube as described above otherwise no significant change compared to the prior exam - Procalcitonin pending - Speech / swallow evaluation today AMELIA - likely 2/2 pre-renal etiology - Cr improving - c/w IV fluid hydration Normocytic anemia - Hemoglobin appears to be stable s/p Hyponatremia - hypotonic hypovolemic etiology HTN - BP well controlled - Lisinopril on hold (re: AMELIA) - c/w Amlodipine Paroxysmal A. fib - c/w rate control with diltiazem - c/w full anticoagulation with Eliquis RA - Will have outpatient follow-up with rheumatology GERD - c/w Protonix DVT prophylaxis - c/w full anticoagulation with Eliquis Disposition: - Awaiting speech / swallow evaluation Sylwia MORALES, I+O Sylwia MORALES I+O Laboratory Tests 07/18/20 07:33 Vital Signs Date Time Temp Pulse Resp B/P (MAP) Pulse Ox O2 Delivery O2 Flow Rate FiO2 07/18/20 08:00 98.5 87 18 142/65 (90) 96 Room Air I&O- Last 24 Hours up to 6 AM 07/18/20 05:59 Intake Total 910 ml Output Total 400 ml Balance 510 ml URSULA BETANCUR MD Jul 18, 2020 09:26
[2020-07-18 10:50] VITALS: BP 153/89
[2020-07-18] MEDS: PANTOPRAZOLE 40MG VIAL (C9113 PER 1) IV SCH (12:41)
[2020-07-18 14:00] VITALS: BP 163/84
[2020-07-18 22:00] VITALS: BP 189/98
[2020-07-19] MEDS: D5W/0.9% SODIUM CHLORIDE 1,000 ML IV SCH (03:09)
[2020-07-19 03:12] VITALS: BP 185/99
[2020-07-19 06:00] VITALS: BP 190/80
[2020-07-19] MEDS ORDERED: amLODIPine 10 MG TAB NG ONE (06:45)
[2020-07-19 07:43] LABS: BASO # 0.1 10^3/uL (0.0-0.2); BASO % 0.6 % (0.0-1.0); EOS # 0.4 10^3/uL (0.0-0.5); EOS % 4.6 % (0.0-3.0); HEMATOCRIT 34.2 % (42.0-52.0); HEMOGLOBIN 11.3 g/dl (13.5-17.5); LYMPH # 1.4 10^3/uL (1.5-5.0); LYMPH % 16.3 % (24.0-44.0); MEAN CORPUSCULAR HEMOGLOBIN 28.2 pg (27.0-33.0); MEAN CORPUSCULAR VOLUME 85.3 fl (80.0-96.0); MONO % 11.3 % (0.0-5.0); NEUTROPHILS # 5.9 10^3/uL (1.5-8.5); PLATELET COUNT, AUTOMATED 286 10^3/uL (150-450); RED BLOOD COUNT 4.01 10^6/uL (4.30-6.10); WHITE BLOOD COUNT 8.8 10^3/uL (4.0-10.0)
[2020-07-19 08:07] LABS: ALBUMIN 3.3 GM/DL (3.2-5.2); ALT/SGPT 21 U/L (12-78); BILIRUBIN,TOTAL 0.6 MG/DL (0.2-1.0); BLOOD UREA NITROGEN 19 MG/DL (7-18); CARBON DIOXIDE LEVEL 21 MEQ/L (21-32); CHLORIDE LEVEL 108 MEQ/L (98-107); CREATININE FOR GFR 1.07 MG/DL (0.70-1.30); GLOMERULAR FILTRATION RATE > 60.0 (>42); GLUCOSE, FASTING 100 MG/DL (70-100); MAGNESIUM LEVEL 1.6 MG/DL (1.8-2.4); POTASSIUM SERUM 4.2 MEQ/L (3.5-5.1); SODIUM LEVEL 140 MEQ/L (136-145); TOTAL PROTEIN 7.2 GM/DL (6.4-8.2)
[2020-07-19] MEDS ORDERED: MAG SULF 1GM/100ML (MAG RUN) 1 GM in IV 1 EA IV ONE (08:30)
--- NOTE | 2020-07-19 10:11 | IPNPDOC ---
Text Note Date of Service The patient was seen on 07/19/20. NOTE Subjective: Patient is a 72-year-old male with a PMHx of HTN, Paroxysmal A. fib (on Eliquis), Seizures (Dx 02/2020), Anxiety, RA, BPH, Irritable bowel syndrome, GERD who presented to the hospital because of multiple episodes of seizure while at home. Patient was admitted to the hospitalist service for further evaluation and treatment, and urology was called on consultation. Patient was seen and examined at the bedside. Currently is able to speak ricardo arer. Denies any CP, SOB or palpitations. Denies any N/V, abdominal pain, C/D or urinary discomfort. Objective: Vitals (See below) General: Patient has been sitting up in bed, appears to be comfortable, AAOx2 (not oriented to time) HEENT: NC, AT CVS: +S1S2 Lungs: Fair bilaterally, without any auscultated rhonchi / crackles / wheezing Abdomen: Remains soft without distention / tenderness Extremities: LE are free of edema, - Calf tenderness Assessment and plan: Facial twitches / Seizures - possibly 2/2 underlying seizure disorder - Abdomen. Last facial twitches noted this morning - Again there is no focal neurologic deficits noted - CT head 07/15: Generalized volume loss. Vascular calcification. No acute intracranial abnormality.. - MRI brain 07/17: 1. There is no acute intracranial abnormality. 2. Stable findings. - Neurology on consultation; c/w Keppra and Lacosamide - case discussed Dysphagia / Possible aspiration - Hemodynamically stable / Remain afebrile - s/p Leukocytosis - Procalcitonin trending down - CXR 07/15: Right base platelike atelectasis. Mildly prominent heart. Otherwise no acute disease.. - CXR 07/17: Nasogastric tube as described above otherwise no significant change compared to the prior exam - Patient has had NG tube removed - Speech / swallow evaluation will be performed today s/p AMELIA - likely 2/2 pre-renal etiology - Cr improving - c/w IV fluid hydration Normocytic anemia - Hemoglobin appears to be stable s/p Hyponatremia - hypotonic hypovolemic etiology HTN - BP well controlled - Lisinopril on hold (re: AMELIA) - c/w Amlodipine Paroxysmal A. fib - c/w rate control with diltiazem - c/w full anticoagulation with Eliquis RA - Will have outpatient follow-up with rheumatology GERD - c/w Protonix DVT prophylaxis - c/w full anticoagulation with Eliquis Disposition: - Awaiting speech / swallow evaluation VS,Sylwia, I+O VSSylwia, I+O Laboratory Tests 07/19/20 07:16 Vital Signs Date Time Temp Pulse Resp B/P (MAP) Pulse Ox O2 Delivery O2 Flow Rate FiO2 07/19/20 06:53 84 190/80 07/19/20 06:00 98.8 20 96 Room Air I&O- Last 24 Hours up to 6 AM 07/19/20 05:59 Intake Total 750 ml Output Total 1300 ml Balance -550 ml URSULA BETANCUR MD Jul 19, 2020 10:11
[2020-07-19] MEDS: levETIRAcetam INJection 1,000 MG in D5W 100 ML IV SCH ×2 (10:12→22:23)
[2020-07-19] MEDS: D5W/0.45% SODIUM CHLORIDE 1,000 ML IV SCH (10:33)
--- NOTE | 2020-07-19 10:33 | REP ---
INDICATION: confirm NG placement in stomach COMPARISON: 07/17/2020 TECHNIQUE: Portable AP view of the chest FINDINGS: Evaluation is limited by positioning and underpenetration. Increased interstitial markings and mildly prominent pulmonary vasculature is again noted which may be secondary to pulmonary vascular congestion. Viral/interstitial pneumonia cannot be excluded. No discrete focal consolidation, effusion. Mediastinum and cardiac silhouette stable including mild right hilar prominence. IMPRESSION: Limited examination essentially unchanged compared to prior examination. <Electronically signed by Robbie Donato > 07/19/20 102
[2020-07-19] MEDS: LACOSAMIDE 10MG/ML 20ML VIAL (VIMPAT) IV SCH ×2 (11:48→21:22)
[2020-07-19] MEDS: PANTOPRAZOLE 40MG VIAL (C9113 PER 1) IV SCH (11:48)
[2020-07-19] MEDS: APIXABAN 5 MG TAB (ELIQUIS) NG SCH ×2 (11:49→21:24)
[2020-07-19] MEDS: SODIUM CHLORIDE 1 GM TAB PO SCH ×2 (11:54→21:23)
[2020-07-19 12:10] VITALS: BP 182/98
[2020-07-19 13:53] VITALS: BP 164/81
--- NOTE | 2020-07-19 14:39 | REP ---
INDICATION: Fever. COMPARISON: Comparison chest x-ray 10:22 a.m. on this same date as well as 17 July 2020. TECHNIQUE: Portable upright AP chest radiograph. FINDINGS: The lungs are symmetrically aerated. Heart is mildly prominent. Pulmonary vasculature is cephalized. No definite infiltrate is seen. Pleural angles are sharp. And nasogastric tube enters the left upper quadrant.. IMPRESSION: Cardiomegaly. NG tube in place. Pulmonary vascular cephalization. No definite infiltrate.. <Electronically signed by Fabian Mccarthy > 07/19/20 [id number]
[2020-07-19 22:00] VITALS: BP 132/70
[2020-07-20 06:00] VITALS: BP 150/71
[2020-07-20 06:20] LABS: BASO # 0.1 10^3/uL (0.0-0.2); BASO % 0.7 % (0.0-1.0); EOS # 0.6 10^3/uL (0.0-0.5); EOS % 7.5 % (0.0-3.0); HEMATOCRIT 32.3 % (42.0-52.0); HEMOGLOBIN 10.8 g/dl (13.5-17.5); LYMPH # 1.8 10^3/uL (1.5-5.0); LYMPH % 23.6 % (24.0-44.0); MEAN CORPUSCULAR HEMOGLOBIN 28.6 pg (27.0-33.0); MEAN CORPUSCULAR HGB CONC 33.4 g/dl (32.0-36.5); MEAN CORPUSCULAR VOLUME 85.4 fl (80.0-96.0); MONO # 0.9 10^3/uL (0.0-0.8); NEUTROPHILS # 4.2 10^3/uL (1.5-8.5); NEUTROPHILS % 55.8 % (36.0-66.0); PLATELET COUNT, AUTOMATED 272 10^3/uL (150-450); RED BLOOD COUNT 3.78 10^6/uL (4.30-6.10); WHITE BLOOD COUNT 7.6 10^3/uL (4.0-10.0)
[2020-07-20 06:53] LABS: BLOOD UREA NITROGEN 17 MG/DL (7-18); CALCIUM LEVEL 9.2 MG/DL (8.8-10.2); CARBON DIOXIDE LEVEL 22 MEQ/L (21-32); CHLORIDE LEVEL 105 MEQ/L (98-107); CREATININE FOR GFR 1.02 MG/DL (0.70-1.30); GLOMERULAR FILTRATION RATE > 60.0 (>42); GLUCOSE, FASTING 89 MG/DL (70-100); POTASSIUM SERUM 3.8 MEQ/L (3.5-5.1); SODIUM LEVEL 138 MEQ/L (136-145)
[2020-07-20] MEDS: D5W/0.45% SODIUM CHLORIDE 1,000 ML IV SCH (07:20)
[2020-07-20] MEDS: levETIRAcetam INJection 1,000 MG in D5W 100 ML IV SCH ×2 (10:31→20:06)
[2020-07-20] MEDS: SODIUM CHLORIDE 1 GM TAB PO SCH ×2 (10:34→20:08)
[2020-07-20] MEDS: APIXABAN 5 MG TAB (ELIQUIS) NG SCH ×2 (10:34→20:06)
[2020-07-20] MEDS: LACOSAMIDE 10MG/ML 20ML VIAL (VIMPAT) IV SCH ×2 (10:59→20:56)
--- NOTE | 2020-07-20 11:34 | IPNPDOC ---
Text Note Date of Service The patient was seen on 07/20/20. NOTE Subjective: Patient is a 72-year-old male with a PMHx of HTN, Paroxysmal A. fib (on Eliquis), Seizures (Dx 02/2020), Anxiety, RA, BPH, Irritable bowel syndrome, GERD who presented to the hospital because of multiple episodes of seizure while at home. Patient was admitted to the hospitalist service for further evaluation and treatment, and urology was called on consultation. Patient was seen and examined at the bedside. Patient denies any chest pain, short of breath or palpitations. Patient has been working with physical therapy. Patient work with speech therapy today and was able to tolerate a modified diet. Denies any abdominal pain or diarrhea. Objective: Vitals (See below) General: Patient is laying in bed, appears comfortable, no acute distress, is awake, alert and oriented 3 HEENT: NC, AT CVS: +S1S2 Lungs: Air entry appears to be fair bilaterally without any auscultated rhonchi, rales or wheezing Abdomen: Abdomen is soft without distention or tenderness Extremities: No edema of lower extremities, - Calf tenderness Assessment and plan: Facial twitches / Seizures - possibly 2/2 underlying seizure disorder - No further seizure events or facial twitches were noted since 07/17 - No focal neurologic deficits noted on exam - CT head 07/15: Generalized volume loss. Vascular calcification. No acute intracranial abnormality. - MRI brain 07/17: 1. There is no acute intracranial abnormality. 2. Stable findings. - Neurology on consultation; c/w Keppra and Lacosamide - case discussed Dysphagia - unlikely aspiration - Hemodynamically stable / Remain afebrile - s/p Leukocytosis - Procalcitonin trending down - CXR 07/15: Right base platelike atelectasis. Mildly prominent heart. Otherwise no acute disease.. - CXR 07/17: Nasogastric tube as described above otherwise no significant change compared to the prior exam - Speech / swallow evaluation again today; will DC NG tube and advance diet based on their recommendations s/p AMELIA - likely 2/2 pre-renal etiology - Cr normalizezd - Will DC IV fluid hydration Normocytic anemia - Hemoglobin appears to be stable s/p Hyponatremia - hypotonic hypovolemic etiology HTN - BP well controlled - Lisinopril on hold (re: AMELIA) - c/w Amlodipine and Diltiazem Paroxysmal A. fib - c/w rate control with diltiazem - c/w full anticoagulation with Eliquis RA - Will have outpatient follow-up with rheumatology GERD - c/w Protonix DVT prophylaxis - c/w full anticoagulation with Eliquis Disposition: - c/w Speech therapy - c/w PT and OT - ARU screen VS,Fishbone, I+O VS, Fishbone, I+O Laboratory Tests 07/20/20 06:03 Vital Signs Date Time Temp Pulse Resp B/P (MAP) Pulse Ox O2 Delivery O2 Flow Rate FiO2 07/20/20 06:34 86 07/20/20 06:00 98.8 18 150/71 (97) 95 Room Air I&O- Last 24 Hours up to 6 AM 07/20/20 06:00 Intake Total 1080 ml Output Total 1225 ml Balance -145 ml URSULA BETANCUR MD Jul 20, 2020 11:34
[2020-07-20] MEDS: PANTOPRAZOLE 40MG VIAL (C9113 PER 1) IV SCH (13:22)
[2020-07-20 14:00] VITALS: BP 149/80
[2020-07-20 22:00] VITALS: BP 148/79
[2020-07-21 06:00] VITALS: BP 117/85
[2020-07-21 09:15] LABS: BASO % 0.5 % (0.0-1.0); EOS # 0.7 10^3/uL (0.0-0.5); EOS % 8.8 % (0.0-3.0); HEMATOCRIT 31.3 % (42.0-52.0); HEMOGLOBIN 10.4 g/dl (13.5-17.5); LYMPH # 2.1 10^3/uL (1.5-5.0); LYMPH % 27.6 % (24.0-44.0); MEAN CORPUSCULAR HEMOGLOBIN 28.7 pg (27.0-33.0); MEAN CORPUSCULAR HGB CONC 33.2 g/dl (32.0-36.5); MEAN CORPUSCULAR VOLUME 86.2 fl (80.0-96.0); MONO # 0.9 10^3/uL (0.0-0.8); MONO % 11.2 % (0.0-5.0); NEUTROPHILS % 51.6 % (36.0-66.0); PLATELET COUNT, AUTOMATED 276 10^3/uL (150-450); RED BLOOD COUNT 3.63 10^6/uL (4.30-6.10); WHITE BLOOD COUNT 7.7 10^3/uL (4.0-10.0)
[2020-07-21 09:27] LABS: BLOOD UREA NITROGEN 20 MG/DL (7-18); CALCIUM LEVEL 8.8 MG/DL (8.8-10.2); CARBON DIOXIDE LEVEL 22 MEQ/L (21-32); CHLORIDE LEVEL 104 MEQ/L (98-107); GLOMERULAR FILTRATION RATE > 60.0 (>42); GLUCOSE, FASTING 91 MG/DL (70-100); MAGNESIUM LEVEL 1.6 MG/DL (1.8-2.4); POTASSIUM SERUM 3.8 MEQ/L (3.5-5.1); SODIUM LEVEL 137 MEQ/L (136-145)
[2020-07-21] MEDS: SODIUM CHLORIDE 1 GM TAB PO SCH ×2 (10:09→20:24)
[2020-07-21] MEDS: APIXABAN 5 MG TAB (ELIQUIS) NG SCH ×2 (10:09→20:24)
[2020-07-21] MEDS: levETIRAcetam INJection 1,000 MG in D5W 100 ML IV SCH (10:10)
--- NOTE | 2020-07-21 11:24 | IPNPDOC ---
Text Note Date of Service The patient was seen on 07/21/20. NOTE Subjective: Patient is a 72-year-old male with a PMHx of HTN, Paroxysmal A. fib (on Eliquis), Seizures (Dx 02/2020), Anxiety, RA, BPH, Irritable bowel syndrome, GERD who presented to the hospital because of multiple episodes of seizure while at home. Patient was admitted to the hospitalist service for further evaluation and treatment, and urology was called on consultation. Patient was seen and examined at the bedside. Currently patient reports that he has had an uneventful evening. Patient has worked with speech therapy and has been tolerating his modified diet. He denies any chest pain, shortness of breath or palpitations. Has not experience any nausea, vomiting, abdominal pain, diarrhea, or urinary discomfort. Rocha catheter was discontinued yesterday Objective: Vitals (See below) General: Patient is sitting up in chair, appears to be comfortable, is awake, alert and oriented 3 HEENT: NC, AT CVS: +S1S2 Lungs: Air entry is fair bilaterally without any auscultated rhonchi, rales or wheezing Abdomen: His abdomen remains soft without any distention or tenderness Extremities: Lower extremities are free of any pitting edema, - Calf tenderness Assessment and plan: Facial twitches / Seizures - possibly 2/2 underlying seizure disorder - No further seizure events or facial twitches were noted since 07/17 - Again no focal deficits on exam - CT head 07/15: Generalized volume loss. Vascular calcification. No acute intracranial abnormality. - MRI brain 07/17: 1. There is no acute intracranial abnormality. 2. Stable findings. - Neurology on consultation; c/w Keppra and Lacosamide - case discussed - Will adjust medications to PO form today Dysphagia - unlikely aspiration - Hemodynamically stable / Remain afebrile - s/p Leukocytosis - Procalcitonin trending down - CXR 07/15: Right base platelike atelectasis. Mildly prominent heart. Otherwise no acute disease.. - CXR 07/17: Nasogastric tube as described above otherwise no significant change compared to the prior exam - s/p NG tube - Speech therapy on consultation; Diet based on their recommendations s/p AMELIA - likely 2/2 pre-renal etiology - Cr normalized - s/p IV fluid hydration Urinary retention - s/p Rocha Normocytic anemia - Hemoglobin appears to be stable s/p Hyponatremia - hypotonic hypovolemic etiology HTN - BP well controlled - Lisinopril remains on hold - c/w Amlodipine and Diltiazem Paroxysmal A. fib - c/w rate control with diltiazem - c/w full anticoagulation with Eliquis RA - Will have outpatient follow-up with rheumatology GERD - c/w Protonix; will change to PO DVT prophylaxis - c/w full anticoagulation with Eliquis Disposition: - c/w Speech therapy - Will transition to ALC status VS,Markbone, I+O VS, Fishbone, I+O Laboratory Tests 07/21/20 08:22 Vital Signs Date Time Temp Pulse Resp B/P (MAP) Pulse Ox O2 Delivery O2 Flow Rate FiO2 07/21/20 06:00 98.0 83 18 117/85 (96) 94 Room Air I&O- Last 24 Hours up to 6 AM 07/21/20 05:59 Intake Total 1250 ml Output Total 450 ml Balance 800 ml URSULA BETANCUR MD Jul 21, 2020 11:24
[2020-07-21] MEDS ORDERED: MAG SULF 1GM/100ML (MAG RUN) 1 GM in IV 1 EA IV ONE (11:30)
[2020-07-21] MEDS: LACOSAMIDE 50 MG TAB (VIMPAT) PO SCH ×2 (11:39→20:24)
[2020-07-21 13:33] VITALS: BP 160/86
[2020-07-21] MEDS: PANTOPRAZOLE 20 MG TAB PO SCH (13:48)
[2020-07-21] MEDS ORDERED: MIRALAX *UNIT DOSE* 17GM PACKET PO PRN (14:15)
[2020-07-21] MEDS ORDERED: SENOKOT S TAB PO PRN (14:15)
[2020-07-21] MEDS ORDERED: MOM 30ML SUSPENSION UDC PO PRN (14:15)
[2020-07-21 16:02] VITALS: BP 133/57
[2020-07-21] MEDS: levETIRAcetam 250MG TABLET (KEPPRA) PO SCH (20:24)
[2020-07-22 06:00] VITALS: BP 147/76
[2020-07-22] MEDS: levETIRAcetam 250MG TABLET (KEPPRA) PO SCH ×2 (09:17→21:11)
[2020-07-22] MEDS: LACOSAMIDE 50 MG TAB (VIMPAT) PO SCH ×2 (09:17→21:11)
[2020-07-22] MEDS: PANTOPRAZOLE 20 MG TAB PO SCH (09:17)
[2020-07-22] MEDS: SODIUM CHLORIDE 1 GM TAB PO SCH ×2 (09:17→21:09)
[2020-07-22] MEDS: APIXABAN 5 MG TAB (ELIQUIS) NG SCH ×2 (09:17→21:11)
[2020-07-23 06:00] VITALS: BP 151/70
[2020-07-23] MEDS: APIXABAN 5 MG TAB (ELIQUIS) NG SCH (08:59)
[2020-07-23] MEDS: levETIRAcetam 250MG TABLET (KEPPRA) PO SCH (09:00)
[2020-07-23] MEDS: LACOSAMIDE 50 MG TAB (VIMPAT) PO SCH (09:00)
[2020-07-23] MEDS: PANTOPRAZOLE 20 MG TAB PO SCH (09:00)
[2020-07-23] MEDS: SODIUM CHLORIDE 1 GM TAB PO SCH (09:00)
[2020-07-23] MEDS ORDERED: VIMP100T PO (11:42)
[2020-07-23] MEDS ORDERED: KEPP10002 PO (11:42)
--- NOTE | 2020-07-23 11:48 | DS.PDOC ---
Discharge Summary General Date of Admission Jul 15, 2020 at 19:10 Date of Discharge 07/23/2020 Discharge Summary PROCEDURES PERFORMED DURING STAY: [None]. ADMITTING DIAGNOSES / DISCHARGE DIAGNOSES: Facial twitches / Seizures - possibly 2/2 underlying seizure disorder Dysphagia - unlikely aspiration s/p AMELIA - likely 2/2 pre-renal etiology Urinary retention Normocytic anemia s/p Hyponatremia - hypotonic hypovolemic etiology HTN Paroxysmal A. fib RA GERD DVT prophylaxis COMPLICATIONS/CHIEF COMPLAINT: Seizure. HISTORY OF PRESENT ILLNESS: Patient is a 72-year-old male with a PMHx of HTN, Paroxysmal A. fib (on Eliquis), Seizures (Dx 02/2020), Anxiety, RA, BPH, Irritable bowel syndrome, GERD who presented to the hospital because of multiple episodes of seizure while at home. Patient was admitted to the hospitalist service for further evaluation and treatment, and urology was called on consultation. HOSPITAL COURSE: Facial twitches / Seizures - possibly 2/2 underlying seizure disorder - No further seizure since 07/17 - No focal deficits on exam - CT head 07/15: Generalized volume loss. Vascular calcification. No acute intracranial abnormality. - MRI brain 07/17: 1. There is no acute intracranial abnormality. 2. Stable findings. - Neurology on consultation; c/w Keppra and Lacosamide - Will have outpatient follow-up with primary care provider and neurology within the next 7 days - Patient has worked with physical therapy and has cleared for discharge home Dysphagia - unlikely aspiration - Hemodynamically stable / Remain afebrile - s/p Leukocytosis - Procalcitonin trending down - CXR 07/15: Right base platelike atelectasis. Mildly prominent heart. Otherwise no acute disease.. - CXR 07/17: Nasogastric tube as described above otherwise no significant change compared to the prior exam - s/p NG tube - Speech therapy on consultation; Diet based on their recommendations - will continue as an outpatient - Will establish home health services on discharge s/p AMELIA - likely 2/2 pre-renal etiology - Cr normalized - s/p IV fluid hydration Urinary retention - s/p Rocha Normocytic anemia - Hemoglobin appears to be stable s/p Hyponatremia - hypotonic hypovolemic etiology HTN - BP mildly elevated - Will resume Lisinopril on discharge - c/w Diltiazem Paroxysmal A. fib - c/w rate control with diltiazem - c/w full anticoagulation with Eliquis RA - Will have outpatient follow-up with rheumatology GERD - c/w Protonix DVT prophylaxis - c/w full anticoagulation with Eliquis DISCHARGE MEDICATIONS: Please see below. ALLERGIES: Please see below. PHYSICAL EXAMINATION ON DISCHARGE: Vitals (See below) General: Patient is laying in bed, appears to be comfortable without any acute distress, awake, alert and oriented 3 HEENT: NC, AT CVS: +S1S2 Lungs: There are again is fair air entry bilaterally without any evidence of crackles, wheezing or rhonchi Abdomen: Soft, nondistended, without tenderness Extremities: No edema, - Calf tenderness LABORATORY DATA: Please see below. ACTIVITY: [As tolerated]. DISCHARGE PLAN: Follow-up with primary care provider and neurology within the next 7 days Remain compliant with treatment plan and medications Return to the ER if you experience any problems DISPOSITION: Home with services DISCHARGE CONDITION: [Stable]. TIME SPENT ON DISCHARGE: 35 minutes. Vital Signs/I&Os Vital Signs Date Time Temp Pulse Resp B/P (MAP) Pulse Ox O2 Delivery O2 Flow Rate FiO2 07/23/20 06:12 91 151/70 07/23/20 06:00 97.9 19 97 Room Air I&O- Last 24 Hours up to 6 AM 07/23/20 06:00 Intake Total 1080 ml Output Total 650 ml Balance 430 ml Microbiology Microbiology 07/19/20 Urine Culture - Final, Complete 07/19/20 Blood Culture - Preliminary, Resulted No Growth after 72 hours. All specime... 07/19/20 Blood Culture - Preliminary, Resulted No Growth after 72 hours. All specime... 07/15/20 Respiratory Virus Panel (PCR) ([facility]) - Final, Complete Discharge Medications Scheduled Apixaban (Eliquis) 5 Mg Tablet, 5 MG PO BID, (Reported) Diltiazem HCl (Cartia Xt) 180 Mg Cap.er.24h, 180 MG PO BID, (Reported) Docusate Sodium (Docusate Sodium) 100 Mg Capsule, 100 MG PO BID, (Reported) Lacosamide (Vimpat) 100 Mg Tablet, 1 TAB PO BID Levetiracetam (Keppra) 1,000 Mg Tablet, 1 TAB PO BID Lisinopril (Lisinopril) 20 Mg Tablet, 20 MG PO BID, (Reported) Magnesium Oxide (Magnesium Oxide) 400 Mg Tablet, 400 MG PO DAILY, (Reported) Pantoprazole Sodium (Pantoprazole Sodium) 20 Mg Tablet.dr, 20 MG PO DAILY, (Reported) [place] Fruit/Zinc Picoli (S[place] 450 mg Capsule) 1 Each Capsule, 450 MG PO BID, (Reported) Sodium Chloride (Sodium Chloride) 1 Gm Tablet, 1 GM PO BID, (Reported) Vitamin B Complex (Vitamin B Complex) 1 Each Tablet, 1 TAB PO DAILY, (Reported) Allergies Coded Allergies: No Known Allergies (Unverified , 09/22/12) URSULA BETANCUR MD Jul 23, 2020 11:48
[2020-07-23 13:18] VITALS: BP 140/73
[2020-07-23] MEDS ORDERED: QUEtiapine FUMARATE 12.5 MG HALF-TAB PO SCH (21:00)
== END 2020-07-23 15:12 | disposition home health service (06) | DRG 101 ==
LOC: EDBD 15:59 → M ED 15:59 → M ED INP 19:10 → EEVIPCON 19:10 → M PCU 07-16 00:23 → M MSPAV 07-18 10:49
PROVIDERS: ADMIT Internal Medicine; ATTEND Internal Medicine
DX: G40.409 Other generalized epilepsy and epileptic syndromes, not intractable, without status epilepticus (principal); E87.1 Hypo-osmolality and hyponatremia; I67.82 Cerebral ischemia; N17.9 Acute kidney failure, unspecified; M06.9 Rheumatoid arthritis, unspecified; I10 Essential (primary) hypertension; K21.9 Gastro-esophageal reflux disease without esophagitis; K42.9 Umbilical hernia without obstruction or gangrene; G51.31 Clonic hemifacial spasm, right; N40.1 Benign prostatic hyperplasia with lower urinary tract symptoms; R33.9 Retention of urine, unspecified; I48.0 Paroxysmal atrial fibrillation; F41.9 Anxiety disorder, unspecified; R13.10 Dysphagia, unspecified; K58.9 Irritable bowel syndrome, unspecified; R50.9 Fever, unspecified; D64.9 Anemia, unspecified; Z79.01 Long term (current) use of anticoagulants; Z79.899 Other long term (current) drug therapy; T42.6X6A Underdosing of other antiepileptic and sedative-hypnotic drugs, initial encounter; Z91.128 Patient's intentional underdosing of medication regimen for other reason

== ENCOUNTER → 2020-07-29 | Outpatient (REF) | payer MEDICARE, OTHER ==
[~2020-07-29] MED LIST changes: +EQL50TAB2 PO; +KEPP10002 PO; +LEVE250T5 PO; +MAGN400T2 PO; +PANT20TA51 PO; +SODI1TAB6 PO; +VIMP100T PO
[2020-07-29 17:54] LABS: BASO % 0.5 % (0.0-1.0); EOS # 0.6 10^3/uL (0.0-0.5); EOS % 6.5 % (0.0-3.0); HEMATOCRIT 32.3 % (42.0-52.0); HEMOGLOBIN 10.9 g/dl (13.5-17.5); LYMPH # 2.7 10^3/uL (1.5-5.0); LYMPH % 30.3 % (24.0-44.0); MEAN CORPUSCULAR HEMOGLOBIN 29.9 pg (27.0-33.0); MEAN CORPUSCULAR HGB CONC 33.7 g/dl (32.0-36.5); MEAN CORPUSCULAR VOLUME 88.5 fl (80.0-96.0); MONO # 0.9 10^3/uL (0.0-0.8); MONO % 10.3 % (0.0-5.0); NEUTROPHILS # 4.6 10^3/uL (1.5-8.5); NEUTROPHILS % 52.1 % (36.0-66.0); PLATELET COUNT, AUTOMATED 471 10^3/uL (150-450); RED BLOOD COUNT 3.65 10^6/uL (4.30-6.10); WHITE BLOOD COUNT 8.8 10^3/uL (4.0-10.0)
[2020-07-29 18:14] LABS: ALBUMIN 3.5 GM/DL (3.2-5.2); BILIRUBIN,TOTAL 0.4 MG/DL (0.2-1.0); CALCIUM LEVEL 9.2 MG/DL (8.8-10.2); CREATININE FOR GFR 1.43 MG/DL (0.70-1.30); GLOMERULAR FILTRATION RATE 50.9 (>42); POTASSIUM SERUM 4.5 MEQ/L (3.5-5.1); TOTAL PROTEIN 7.8 GM/DL (6.4-8.2); URIC ACID 5.6 MG/DL (3.5-7.2)
[2020-07-29 18:21] LABS: FOLATE 10.4 NG/ML
== END ==
LOC: M LABDRWAD 17:10
PROVIDERS: ATTEND Physician Assistant
DX: G40.89 Other seizures (principal)

== ENCOUNTER → 2020-08-24 | Outpatient (REF) | payer MEDICARE, OTHER ==
[~2020-08-24] MED LIST changes: -LISI-538 PO; +LISI20TA33 PO
[2020-08-24 16:08] LABS: BASO # 0.1 10^3/uL (0.0-0.2); BASO % 0.8 % (0.0-1.0); EOS # 0.6 10^3/uL (0.0-0.5); EOS % 7.9 % (0.0-3.0); HEMATOCRIT 32.6 % (42.0-52.0); HEMOGLOBIN 11.3 g/dl (13.5-17.5); LYMPH # 2.4 10^3/uL (1.5-5.0); LYMPH % 33.7 % (24.0-44.0); MEAN CORPUSCULAR HEMOGLOBIN 31.9 pg (27.0-33.0); MEAN CORPUSCULAR HGB CONC 34.7 g/dl (32.0-36.5); MEAN CORPUSCULAR VOLUME 92.1 fl (80.0-96.0); MONO # 0.9 10^3/uL (0.0-0.8); MONO % 12.3 % (2.0-8.0); NEUTROPHILS # 3.3 10^3/uL (1.5-8.5); PLATELET COUNT, AUTOMATED 370 10^3/uL (150-450); RED BLOOD COUNT 3.54 10^6/uL (4.30-6.10); WHITE BLOOD COUNT 7.2 10^3/uL (4.0-10.0)
[2020-08-24 16:26] LABS: APPEARANCE, URINE CLEAR (CLEAR); BACTERIA, URINE AUTO NEGATIVE (NEGATIVE); BILIRUBIN, URINE AUTO NEGATIVE (NEGATIVE); BLOOD, URINE BLOOD NEGATIVE (NEGATIVE); COLOR, URINE YELLOW (YELLOW); GLUCOSE, URINE (UA) AUTO NEGATIVE (NEGATIVE); KETONE, URINE AUTO NEGATIVE (NEGATIVE); LEUKOCYTE ESTERASE, URINE AUTO NEGATIVE (NEGATIVE); MUCUS, URINE SMALL (NEGATIVE); NITRITE, URINE AUTO NEGATIVE (NEGATIVE); PROTEIN, URINE AUTO NEGATIVE (NEGATIVE); RBC, URINE AUTO 1 /HPF (0-3); SPECIFIC GRAVITY URINE AUTO 1.015 (1.002-1.035); SQUAMOUS EPITHELIAL CELL UR AU 0 /HPF (0-6); UROBILINOGEN, URINE AUTO 0.2 mg/dL (0.0-2.0); WBC, URINE AUTO 0 /HPF (0-3)
[2020-08-24 16:34] LABS: ALBUMIN 3.8 GM/DL (3.2-5.2); ALT/SGPT 22 U/L (12-78); BILIRUBIN,DIRECT < 0.1 MG/DL (0.0-0.2); BILIRUBIN,TOTAL 0.3 MG/DL (0.2-1.0); BLOOD UREA NITROGEN 30 MG/DL (7-18); CALCIUM LEVEL 9.5 MG/DL (8.8-10.2); CARBON DIOXIDE LEVEL 27 MEQ/L (21-32); CHLORIDE LEVEL 101 MEQ/L (98-107); CREATININE FOR GFR 1.19 MG/DL (0.70-1.30); GLOMERULAR FILTRATION RATE > 60.0 (>42); GLUCOSE, FASTING 77 MG/DL (70-100); POTASSIUM SERUM 5.5 MEQ/L (3.5-5.1); SODIUM LEVEL 132 MEQ/L (136-145); TOTAL PROTEIN 7.9 GM/DL (6.4-8.2)
[2020-08-24 16:44] LABS: OSMOLALITY SERUM 289 MOSM/KG (280-301)
== END ==
LOC: M SHH 15:34
PROVIDERS: ATTEND Physician Assistant
DX: R19.7 Diarrhea, unspecified (principal); G40.89 Other seizures; E87.1 Hypo-osmolality and hyponatremia

== ENCOUNTER → 2020-11-16 | Outpatient (REF) | payer MEDICARE, OTHER ==
[2020-11-16 18:14] LABS: SODIUM,RANDOM URINE 54 MEQ/L
[2020-11-16 19:29] LABS: CORTISOL BASELINE 10.5 UG/DL (4.3-22.4); FREE T4 1.05 NG/DL (0.76-1.46); THYROID STIMULATING HORMONE 3.81 uIU/ML (0.358-3.740)
[2020-11-16 19:41] LABS: OSMOLALITY URINE 563 MOSM/KG (50-1400)
== END ==
LOC: M LAB REF 17:17
PROVIDERS: ATTEND Internal Medicine Nephrology
DX: G40.89 Other seizures (principal); E87.1 Hypo-osmolality and hyponatremia; I12.9 Hypertensive chronic kidney disease with stage 1 through stage 4 chronic kidney disease, or unspecified chronic kidney disease

== ENCOUNTER → 2021-01-02 | Outpatient (REF) | payer MEDICARE, OTHER ==
[~2021-01-02] MED LIST changes: +OMEP40CA4; +OMEP40CA4 PO; -OMEP40CA97; -OMEP40CA97 PO
== END ==
LOC: M LAB REF 17:31
PROVIDERS: ATTEND Internal Medicine Nephrology
DX: E87.1 Hypo-osmolality and hyponatremia (principal)

== ENCOUNTER → 2021-01-26 | Outpatient (REF) | payer MEDICARE, OTHER | LOC: M LAB REF 17:16 | PROVIDERS: ATTEND Internal Medicine Nephrology | DX: N18.31 Chronic kidney disease, stage 3a (principal) ==

== ENCOUNTER → 2021-01-31 | Outpatient (CLI) | payer MEDICARE, OTHER ==
--- NOTE | 2021-01-31 11:03 | REP ---
INDICATION: CHRONIC LBP, HX OF RA, EVAL FOR BONY ABN. COMPARISON: None TECHNIQUE: Seven views with flexion and extension bending views FINDINGS: There is marginal osteophytosis at every level bilaterally particularly T12-L1 and L1-L2. There is moderate to severe L4-5 disc space narrowing. There is moderate L3-4 disc space narrowing. More mild disc space narrowing is seen at all other levels. There is a grade 3 L1 anterior wedge compression deformity. Degenerative facet joint changes are seen at every level bilaterally particularly L4-5 and L5-S1. Vertebral body alignment is within normal limits. IMPRESSION: 1. L1 compression deformity as described above. The age of this cannot be determined by this exam. There are no priors for comparison. An MRI examination of the lumbar spine obtained 10/31/2018 did not show the abnormality. 2. Chronic changes as described above. <Electronically signed by Jose Lopes > 01/31/21 105
[2021-01-31 14:02] LABS: CALCIUM LEVEL 9.1 MG/DL (8.8-10.2); CREATININE FOR GFR 1.43 MG/DL (0.70-1.30); GLOMERULAR FILTRATION RATE 50.9 (>42); POTASSIUM SERUM 4.9 MEQ/L (3.5-5.1)
== END ==
LOC: M ADAMS 10:26
PROVIDERS: ATTEND Physician Assistant
DX: M54.5 Low back pain (principal)

== ENCOUNTER → 2021-03-11 | Outpatient (CLI) | payer MEDICARE, OTHER ==
[~2021-03-11] MED LIST changes: -DILT180C43; +DILT180C95
== END ==
LOC: M RAD 14:06
PROVIDERS: ATTEND Family Medicine
DX: M54.5 Low back pain (principal)

== ENCOUNTER → 2021-04-28 | Outpatient (REF) | payer MEDICARE, OTHER ==
[~2021-04-28] MED LIST changes: +DILT180C43; -DILT180C95
== END ==
LOC: M LAB REF 12:51
PROVIDERS: ATTEND Internal Medicine Nephrology
DX: N18.31 Chronic kidney disease, stage 3a (principal)

== ENCOUNTER → 2021-09-05 | Outpatient (REF) | payer MEDICARE, OTHER ==
[~2021-09-05] MED LIST changes: -DILT180C43; +DILT180C95
[2021-09-05 19:22] LABS: BASO % 0.4 % (0.0-1.0); EOS # 0.6 10^3/uL (0.0-0.5); EOS % 8.4 % (0.0-3.0); HEMATOCRIT 38.7 % (42.0-52.0); HEMOGLOBIN 13.1 g/dl (13.5-17.5); LYMPH # 2.5 10^3/uL (1.5-5.0); MEAN CORPUSCULAR HGB CONC 33.9 g/dl (32.0-36.5); MEAN CORPUSCULAR VOLUME 91.5 fl (80.0-96.0); MONO # 1.1 10^3/uL (0.0-0.8); MONO % 14.5 % (2.0-8.0); NEUTROPHILS # 3.3 10^3/uL (1.5-8.5); NEUTROPHILS % 43.4 % (36.0-66.0); PLATELET COUNT, AUTOMATED 244 10^3/uL (150-450); RED BLOOD COUNT 4.23 10^6/uL (4.30-6.10); WHITE BLOOD COUNT 7.7 10^3/uL (4.0-10.0)
[2021-09-05 19:46] LABS: BILIRUBIN,TOTAL 0.3 MG/DL (0.2-1.0); CALCIUM LEVEL 8.9 MG/DL (8.8-10.2); CHOLESTEROL RISK RATIO 5.064 (<5); CREATININE FOR GFR 1.66 MG/DL (0.70-1.30); FREE T4 1.08 NG/DL (0.76-1.46); GLOMERULAR FILTRATION RATE 42.8 (>42); THYROID STIMULATING HORMONE 3.17 uIU/ML (0.358-3.740); TOTAL PROTEIN 7.6 GM/DL (6.4-8.2)
== END ==
LOC: M LABDRWAD 18:52
PROVIDERS: ATTEND Nurse Practitioner Adult Health
DX: I48.0 Paroxysmal atrial fibrillation (principal); Z79.899 Other long term (current) drug therapy

== ENCOUNTER → 2021-10-03 | Outpatient (CLI) | payer MEDICARE, OTHER | LOC: M RAD 09:03 | PROVIDERS: ATTEND Physician Assistant | DX: M51.36 Other intervertebral disc degeneration, lumbar region (principal) | CPT/HCPCS: 78306; A9503 ==

== ENCOUNTER → 2021-10-17 | Outpatient (REF) | payer MEDICARE, OTHER | LOC: M SFHCDERM 17:07 | PROVIDERS: ATTEND Nurse Practitioner Family | DX: D04.39 Carcinoma in situ of skin of other parts of face (principal) ==

== ENCOUNTER → 2021-10-19 | Outpatient (CLI) | payer MEDICARE, OTHER ==
[2021-10-19 13:20] LABS: BASO % 0.4 % (0.0-1.0); EOS # 0.6 10^3/uL (0.0-0.5); EOS % 8.8 % (0.0-3.0); HEMATOCRIT 39.1 % (42.0-52.0); HEMOGLOBIN 13.3 g/dl (13.5-17.5); LYMPH # 2.5 10^3/uL (1.5-5.0); LYMPH % 35.3 % (24.0-44.0); MEAN CORPUSCULAR HEMOGLOBIN 30.4 pg (27.0-33.0); MEAN CORPUSCULAR VOLUME 89.5 fl (80.0-96.0); MONO % 14.5 % (2.0-8.0); NEUTROPHILS # 2.9 10^3/uL (1.5-8.5); NEUTROPHILS % 40.7 % (36.0-66.0); PLATELET COUNT, AUTOMATED 274 10^3/uL (150-450); RED BLOOD COUNT 4.37 10^6/uL (4.30-6.10); WHITE BLOOD COUNT 7.2 10^3/uL (4.0-10.0)
[2021-10-19 13:21] LABS: ALBUMIN 3.9 GM/DL (3.2-5.2); ALT/SGPT 35 U/L (12-78); BILIRUBIN,TOTAL 0.3 MG/DL (0.2-1.0); BLOOD UREA NITROGEN 30 MG/DL (7-18); CALCIUM LEVEL 9.7 MG/DL (8.8-10.2); CARBON DIOXIDE LEVEL 24 MEQ/L (21-32); CHLORIDE LEVEL 107 MEQ/L (98-107); CREATININE FOR GFR 1.58 MG/DL (0.70-1.30); GLOMERULAR FILTRATION RATE 45.3 (>42); GLUCOSE, FASTING 86 MG/DL (70-100); RHEUMATOID FACTOR QUANT < 10.0 IU/ML (<15.0); SODIUM LEVEL 138 MEQ/L (136-145); TOTAL PROTEIN 7.5 GM/DL (6.4-8.2); URIC ACID 7.3 MG/DL (3.5-7.2)
[2021-10-19 13:45] LABS: ERYTHROCYTE SEDIMENTATION RATE 19 mm/hr (0-20)
[2021-10-21 02:07] LABS: ANA (HEP2) Positive (.); CYCLIC CITRULLINATED PEPTIDE > 250 units (0-19)
== END ==
LOC: M ADAMS 10:21
PROVIDERS: ATTEND Nurse Practitioner Adult Health
DX: M06.00 Rheumatoid arthritis without rheumatoid factor, unspecified site (principal); L40.50 Arthropathic psoriasis, unspecified

== ENCOUNTER → 2021-10-30 | Outpatient (CLI) | payer MEDICARE, OTHER ==
[2021-10-30 13:39] LABS: PLATELET COUNT, AUTOMATED 268 10^3/uL (150-450)
[2021-10-30 13:50] LABS: INR 1.22; PROTHROMBIN TIME 15.8 SECONDS (12.7-14.5)
== END ==
LOC: M ADAMS 11:26
PROVIDERS: ATTEND Physician Assistant
DX: M51.36 Other intervertebral disc degeneration, lumbar region (principal); Z79.01 Long term (current) use of anticoagulants

== ENCOUNTER → 2021-12-05 | Outpatient (REF) | payer MEDICARE, OTHER ==
[2021-12-05 18:21] LABS: PERCENT SATURATION 23.6 % (19.7-50.0)
== END ==
LOC: M LAB REF 16:48
PROVIDERS: ATTEND Nurse Practitioner Family
DX: D50.9 Iron deficiency anemia, unspecified (principal)

== ENCOUNTER → 2022-02-14 | Outpatient (CLI) | payer MEDICARE, OTHER ==
[2022-02-14 13:51] LABS: BASO % 0.5 % (0.0-1.0); EOS # 0.4 10^3/uL (0.0-0.5); EOS % 5.5 % (0.0-3.0); HEMATOCRIT 39.9 % (42.0-52.0); HEMOGLOBIN 13.4 g/dl (13.5-17.5); LYMPH # 2.1 10^3/uL (1.5-5.0); LYMPH % 28.9 % (24.0-44.0); MEAN CORPUSCULAR HEMOGLOBIN 30.5 pg (27.0-33.0); MEAN CORPUSCULAR HGB CONC 33.6 g/dl (32.0-36.5); MEAN CORPUSCULAR VOLUME 90.9 fl (80.0-96.0); MONO # 1.1 10^3/uL (0.0-0.8); MONO % 14.2 % (2.0-8.0); NEUTROPHILS # 3.7 10^3/uL (1.5-8.5); NEUTROPHILS % 50.5 % (36.0-66.0); PLATELET COUNT, AUTOMATED 276 10^3/uL (150-450); RED BLOOD COUNT 4.39 10^6/uL (4.30-6.10); WHITE BLOOD COUNT 7.4 10^3/uL (4.0-10.0)
[2022-02-14 14:52] LABS: ALBUMIN 3.9 GM/DL (3.2-5.2); BILIRUBIN,TOTAL 0.4 MG/DL (0.2-1.0); CALCIUM LEVEL 9.2 MG/DL (8.8-10.2); CREATININE FOR GFR 1.51 MG/DL (0.70-1.30); FREE T4 1.1 NG/DL (0.76-1.46); GLOMERULAR FILTRATION RATE 47.7 (>42); POTASSIUM SERUM 4.7 MEQ/L (3.5-5.1); THYROID STIMULATING HORMONE 3.57 uIU/ML (0.358-3.740); TOTAL PROTEIN 7.4 GM/DL (6.4-8.2)
== END ==
LOC: M ADAMS 10:56
PROVIDERS: ATTEND Nurse Practitioner Adult Health
DX: N40.0 Benign prostatic hyperplasia without lower urinary tract symptoms (principal); M06.00 Rheumatoid arthritis without rheumatoid factor, unspecified site; I48.0 Paroxysmal atrial fibrillation

== ENCOUNTER → 2022-03-06 | Outpatient (REF) | payer MEDICARE, OTHER | LOC: M SFHCDERM 17:35 | PROVIDERS: ATTEND Nurse Practitioner Family | DX: D22.62 Melanocytic nevi of left upper limb, including shoulder (principal) ==

== ENCOUNTER → 2022-05-14 | Outpatient (REF) | payer MEDICARE, OTHER ==
[2022-05-14 13:58] LABS: BASO # 0.1 10^3/uL (0.0-0.2); BASO % 0.9 % (0.0-1.0); EOS # 0.6 10^3/uL (0.0-0.5); EOS % 7.2 % (0.0-3.0); HEMATOCRIT 41.5 % (42.0-52.0); LYMPH # 2.9 10^3/uL (1.5-5.0); LYMPH % 36.2 % (24.0-44.0); MEAN CORPUSCULAR HEMOGLOBIN 31.8 pg (27.0-33.0); MEAN CORPUSCULAR HGB CONC 33.7 g/dl (32.0-36.5); MEAN CORPUSCULAR VOLUME 94.3 fl (80.0-96.0); MONO # 1.1 10^3/uL (0.0-0.8); MONO % 14.1 % (2.0-8.0); NEUTROPHILS # 3.3 10^3/uL (1.5-8.5); NEUTROPHILS % 41.5 % (36.0-66.0); PLATELET COUNT, AUTOMATED 272 10^3/uL (150-450)
[2022-05-14 14:43] LABS: ALBUMIN 4.2 G/DL (3.2-5.2); BILIRUBIN,TOTAL 0.3 MG/DL (0.3-1.2); CALCIUM LEVEL 8.8 MG/DL (8.3-10.6); CHOLESTEROL RISK RATIO 4.39 (<5); CREATININE FOR GFR 1.38 MG/DL (0.70-1.30); FREE T4 1.1 NG/DL (0.89-1.76); GLOMERULAR FILTRATION RATE 52.9 (>42); HDL CHOLESTEROL 34.8 MG/DL (>40); LDL CHOLESTEROL 96.8 MG/DL (<100); POTASSIUM SERUM 5.1 MMOL/L (3.5-5.1); THYROID STIMULATING HORMONE 4.379 uIU/ML (0.55-4.78); TOTAL PROTEIN 7.5 G/DL (5.7-8.2)
== END ==
LOC: M LABDRWAD 12:59
PROVIDERS: ATTEND Family Medicine
DX: I12.9 Hypertensive chronic kidney disease with stage 1 through stage 4 chronic kidney disease, or unspecified chronic kidney disease (principal); E78.00 Pure hypercholesterolemia, unspecified

== ENCOUNTER → 2022-08-17 | Outpatient (REF) | payer MEDICARE, OTHER ==
[2022-08-17 13:45] LABS: BASO % 0.4 % (0.0-1.0); EOS # 0.4 10^3/uL (0.0-0.5); EOS % 5.6 % (0.0-3.0); HEMATOCRIT 43.7 % (42.0-52.0); HEMOGLOBIN 14.5 g/dl (13.5-17.5); LYMPH # 2.6 10^3/uL (1.5-5.0); LYMPH % 37.2 % (24.0-44.0); MEAN CORPUSCULAR HEMOGLOBIN 30.6 pg (27.0-33.0); MEAN CORPUSCULAR HGB CONC 33.2 g/dl (32.0-36.5); MEAN CORPUSCULAR VOLUME 92.2 fl (80.0-96.0); MONO % 14.4 % (2.0-8.0); NEUTROPHILS % 42.3 % (36.0-66.0); PLATELET COUNT, AUTOMATED 259 10^3/uL (150-450); RED BLOOD COUNT 4.74 10^6/uL (4.30-6.10); WHITE BLOOD COUNT 7.1 10^3/uL (4.0-10.0)
[2022-08-17 13:52] LABS: C REACTIVE PROTEIN QUANTITATIV < 0.40 MG/DL (<1.0)
[2022-08-17 13:53] LABS: ALKALINE PHOSPHATASE 98 U/L (46-116); ALT/SGPT 31 U/L (7.0-40); AST/SGOT 25 U/L (<34); BILIRUBIN,TOTAL 0.5 MG/DL (0.3-1.2); BLOOD UREA NITROGEN 38 MG/DL (9-23); CALCIUM LEVEL 9.4 MG/DL (8.3-10.6); CARBON DIOXIDE LEVEL 30 MMOL/L (20-31); CHLORIDE LEVEL 101 MMOL/L (98-107); CREATININE FOR GFR 1.53 MG/DL (0.70-1.30); GLOMERULAR FILTRATION RATE 46.9 (>35); GLUCOSE, FASTING 103 MG/DL (74-106); POTASSIUM SERUM 5.2 MMOL/L (3.5-5.1); SODIUM LEVEL 134 MMOL/L (136-145); TOTAL PROTEIN 7.3 G/DL (5.7-8.2)
[2022-08-17 14:04] LABS: ERYTHROCYTE SEDIMENTATION RATE 24 mm/hr (0-20)
== END ==
LOC: M SFHCADAM 10:22
PROVIDERS: ATTEND Internal Medicine Rheumatology
DX: L40.50 Arthropathic psoriasis, unspecified (principal); M15.9 Polyosteoarthritis, unspecified; R76.8 Other specified abnormal immunological findings in serum; Z79.899 Other long term (current) drug therapy

== ENCOUNTER → 2022-08-17 | Outpatient (CLI) | payer MEDICARE, OTHER | LOC: M ADAMS 11:08 | PROVIDERS: ATTEND Internal Medicine Rheumatology | DX: L40.50 Arthropathic psoriasis, unspecified (principal); M15.9 Polyosteoarthritis, unspecified; R76.8 Other specified abnormal immunological findings in serum; Z79.899 Other long term (current) drug therapy ==

== ENCOUNTER → 2023-03-08 | Outpatient (REF) | payer MEDICARE, OTHER ==
[~2023-03-08] MED LIST changes: +FLUT50SP17; -FLUTISP
[2023-03-08 18:39] LABS: OSMOLALITY URINE 349 MOSM/KG (50-1400)
[2023-03-08 18:41] LABS: SODIUM,RANDOM URINE 57 MMOL/L
== END ==
LOC: M LAB REF 17:01
PROVIDERS: ATTEND Nurse Practitioner Family
DX: E87.1 Hypo-osmolality and hyponatremia (principal)

== ENCOUNTER → 2023-05-01 | Outpatient (REF) | payer MEDICARE, OTHER | LOC: M SFHCDERM 17:58 | PROVIDERS: ATTEND Dermatology | DX: L30.8 Other specified dermatitis (principal); R60.0 Localized edema ==

== ENCOUNTER → 2023-07-01 | Outpatient (REF) | payer MEDICARE, OTHER ==
[~2023-07-01] MED LIST changes: -FLUT50SP17; +FLUTISP
[2023-07-01 18:56] LABS: BASO % 0.3 % (0.0-1.0); EOS # 0.2 10^3/uL (0.0-0.5); EOS % 2.3 % (0.0-3.0); HEMATOCRIT 42.1 % (42.0-52.0); HEMOGLOBIN 14.4 g/dl (13.5-17.5); LYMPH # 2.2 10^3/uL (1.5-5.0); LYMPH % 29.6 % (24.0-44.0); MEAN CORPUSCULAR HEMOGLOBIN 31.2 pg (27.0-33.0); MEAN CORPUSCULAR HGB CONC 34.2 g/dl (32.0-36.5); MEAN CORPUSCULAR VOLUME 91.1 fl (80.0-96.0); MONO # 0.8 10^3/uL (0.0-0.8); MONO % 10.2 % (2.0-8.0); NEUTROPHILS # 4.2 10^3/uL (1.5-8.5); NEUTROPHILS % 57.3 % (36.0-66.0); PLATELET COUNT, AUTOMATED 331 10^3/uL (150-450); RED BLOOD COUNT 4.62 10^6/uL (4.30-6.10); WHITE BLOOD COUNT 7.3 10^3/uL (4.0-10.0)
[2023-07-01 19:03] LABS: ERYTHROCYTE SEDIMENTATION RATE 54 mm/hr (0-20)
[2023-07-01 19:22] LABS: C REACTIVE PROTEIN QUANTITATIV 3.3 MG/DL (<1.0)
[2023-07-01 19:24] LABS: ALBUMIN 3.6 G/DL (3.2-5.2); BILIRUBIN,TOTAL 0.5 MG/DL (0.3-1.2); CREATININE FOR GFR 1.37 MG/DL (0.70-1.30); GLOMERULAR FILTRATION RATE 53.2 (>35); POTASSIUM SERUM 5.3 MMOL/L (3.5-5.1); TOTAL PROTEIN 7.2 G/DL (5.7-8.2)
== END ==
LOC: M LABDRWAD 17:24
PROVIDERS: ATTEND Internal Medicine Rheumatology
DX: L40.50 Arthropathic psoriasis, unspecified (principal); M15.9 Polyosteoarthritis, unspecified; R76.8 Other specified abnormal immunological findings in serum; Z79.899 Other long term (current) drug therapy

== ENCOUNTER → 2023-07-31 | Outpatient (REF) | payer MEDICARE, OTHER ==
[2023-07-31 14:45] LABS: BASO % 0.5 % (0.0-1.0); EOS # 0.3 10^3/uL (0.0-0.5); EOS % 4.1 % (0.0-3.0); HEMATOCRIT 42.5 % (42.0-52.0); HEMOGLOBIN 14.7 g/dl (13.5-17.5); LYMPH # 2.5 10^3/uL (1.5-5.0); LYMPH % 31.1 % (24.0-44.0); MEAN CORPUSCULAR HEMOGLOBIN 32.2 pg (27.0-33.0); MEAN CORPUSCULAR HGB CONC 34.6 g/dl (32.0-36.5); MONO # 1.1 10^3/uL (0.0-0.8); MONO % 13.4 % (2.0-8.0); NEUTROPHILS % 50.8 % (36.0-66.0); PLATELET COUNT, AUTOMATED 228 10^3/uL (150-450); RED BLOOD COUNT 4.57 10^6/uL (4.30-6.10); WHITE BLOOD COUNT 7.9 10^3/uL (4.0-10.0)
[2023-07-31 14:58] LABS: ERYTHROCYTE SEDIMENTATION RATE 27 mm/hr (0-20)
[2023-07-31 15:16] LABS: C REACTIVE PROTEIN QUANTITATIV < 0.40 MG/DL (<1.0)
[2023-07-31 15:17] LABS: ALBUMIN 3.6 G/DL (3.2-5.2); ALKALINE PHOSPHATASE 107 U/L (46-116); ALT/SGPT 25 U/L (7.0-40); AST/SGOT 15 U/L (<34); BILIRUBIN,TOTAL 0.5 MG/DL (0.3-1.2); BLOOD UREA NITROGEN 27 MG/DL (9-23); CALCIUM LEVEL 9.3 MG/DL (8.3-10.6); CARBON DIOXIDE LEVEL 28 MMOL/L (20-31); CHLORIDE LEVEL 98 MMOL/L (98-107); CREATININE FOR GFR 1.42 MG/DL (0.70-1.30); GLOMERULAR FILTRATION RATE 50.9 (>35); GLUCOSE, FASTING 65 MG/DL (74-106); POTASSIUM SERUM 5.4 MMOL/L (3.5-5.1); SODIUM LEVEL 131 MMOL/L (136-145); TOTAL PROTEIN 7.4 G/DL (5.7-8.2)
== END ==
LOC: M SFHCADAM 10:53
PROVIDERS: ATTEND Internal Medicine Rheumatology
DX: L40.50 Arthropathic psoriasis, unspecified (principal); M15.9 Polyosteoarthritis, unspecified; R76.8 Other specified abnormal immunological findings in serum; Z79.899 Other long term (current) drug therapy

== ENCOUNTER → 2023-12-06 | Outpatient (REF) | payer MEDICARE, OTHER | LOC: M SFHCRHEU 11:52 | PROVIDERS: ATTEND Internal Medicine Rheumatology | DX: L40.50 Arthropathic psoriasis, unspecified (principal); M15.9 Polyosteoarthritis, unspecified; R76.8 Other specified abnormal immunological findings in serum; Z79.899 Other long term (current) drug therapy ==

== ENCOUNTER → 2023-12-09 | Outpatient (REF) | payer MEDICARE, OTHER ==
[2023-12-09 13:38] LABS: C REACTIVE PROTEIN QUANTITATIV < 0.40 MG/DL (<1.0)
[2023-12-09 13:40] LABS: ALBUMIN 3.5 G/DL (3.2-5.2); ALKALINE PHOSPHATASE 125 U/L (46-116); ALT/SGPT 26 U/L (7.0-40); AST/SGOT 9 U/L (<34); BILIRUBIN,TOTAL 0.4 MG/DL (0.3-1.2); BLOOD UREA NITROGEN 32 MG/DL (9-23); CALCIUM LEVEL 9.4 MG/DL (8.3-10.6); CARBON DIOXIDE LEVEL 29 MMOL/L (20-31); CHLORIDE LEVEL 101 MMOL/L (98-107); CREATININE FOR GFR 1.51 MG/DL (0.70-1.30); GLOMERULAR FILTRATION RATE 47.5 (>35); GLUCOSE, FASTING 92 MG/DL (74-106); POTASSIUM SERUM 5.1 MMOL/L (3.5-5.1); SODIUM LEVEL 131 MMOL/L (136-145); TOTAL PROTEIN 7.1 G/DL (5.7-8.2)
[2023-12-09 13:48] LABS: BASO # 0.1 10^3/uL (0.0-0.2); BASO % 0.5 % (0.0-1.0); EOS # 0.4 10^3/uL (0.0-0.5); EOS % 3.5 % (0.0-3.0); HEMATOCRIT 41.5 % (42.0-52.0); HEMOGLOBIN 14.3 g/dl (13.5-17.5); LYMPH # 3.1 10^3/uL (1.5-5.0); LYMPH % 30.3 % (24.0-44.0); MEAN CORPUSCULAR HEMOGLOBIN 32.1 pg (27.0-33.0); MEAN CORPUSCULAR HGB CONC 34.5 g/dl (32.0-36.5); MEAN CORPUSCULAR VOLUME 93.3 fl (80.0-96.0); MONO # 1.1 10^3/uL (0.0-0.8); MONO % 10.2 % (2.0-8.0); NEUTROPHILS # 5.7 10^3/uL (1.5-8.5); NEUTROPHILS % 54.9 % (36.0-66.0); PLATELET COUNT, AUTOMATED 383 10^3/uL (150-450); RED BLOOD COUNT 4.45 10^6/uL (4.30-6.10); WHITE BLOOD COUNT 10.4 10^3/uL (4.0-10.0)
[2023-12-09 13:54] LABS: HEPATITIS B SURFACE ANTIGEN NEGATIVE (NEGATIVE)
[2023-12-09 13:58] LABS: ERYTHROCYTE SEDIMENTATION RATE 52 mm/hr (0-20)
[2023-12-09 14:16] LABS: HEPATITIS B CORE ANTIBODY IGM NEGATIVE (NEGATIVE)
== END ==
LOC: M SFHCRHEU 10:03
PROVIDERS: ATTEND Internal Medicine Rheumatology
DX: L40.50 Arthropathic psoriasis, unspecified (principal); M15.9 Polyosteoarthritis, unspecified; R76.8 Other specified abnormal immunological findings in serum; Z79.899 Other long term (current) drug therapy

== ENCOUNTER → 2023-12-18 | Outpatient (REF) | payer MEDICARE, OTHER ==
[2023-12-19 18:49] LABS: TOTAL PROTEIN,RANDOM URINE 45.1 MG/DL (0.0-14.0)
[2023-12-19 18:54] LABS: CREATININE,RANDOM URINE 60.6 MG/DL
== END ==
LOC: M LAB REF 17:18
PROVIDERS: ATTEND Nurse Practitioner Family
DX: R80.9 Proteinuria, unspecified (principal)

== ENCOUNTER → 2024-03-06 | Outpatient (REF) | payer MEDICARE, OTHER ==
[2024-03-06 14:52] LABS: URIC ACID 5.4 MG/DL (3.7-9.2)
[2024-03-06 14:55] LABS: BILIRUBIN,TOTAL 0.7 MG/DL (0.3-1.2); CALCIUM LEVEL 9.1 MG/DL (8.3-10.6); CREATININE FOR GFR 1.34 MG/DL (0.70-1.30); GLOMERULAR FILTRATION RATE 54.5 (>35); POTASSIUM SERUM 5.4 MMOL/L (3.5-5.1); TOTAL PROTEIN 7.1 G/DL (5.7-8.2)
== END ==
LOC: M LABDRWAD 13:28
PROVIDERS: ATTEND Physician Assistant
DX: I12.9 Hypertensive chronic kidney disease with stage 1 through stage 4 chronic kidney disease, or unspecified chronic kidney disease (principal)

== ENCOUNTER → 2024-07-16 | Outpatient (REF) | payer MEDICARE, OTHER ==
[~2024-07-16] MED LIST changes: +HYOS0.3723 PO; -HYOS0.374 PO
[2024-07-16 17:00] LABS: BASO # 0.1 10^3/uL (0.0-0.2); BASO % 0.6 % (0.0-1.0); EOS # 0.3 10^3/uL (0.0-0.5); EOS % 4.1 % (0.0-3.0); HEMATOCRIT 39.2 % (42.0-52.0); HEMOGLOBIN 13.5 g/dl (13.5-17.5); LYMPH # 2.5 10^3/uL (1.5-5.0); LYMPH % 31.4 % (24.0-44.0); MEAN CORPUSCULAR HEMOGLOBIN 31.7 pg (27.0-33.0); MEAN CORPUSCULAR HGB CONC 34.4 g/dl (32.0-36.5); MONO # 0.9 10^3/uL (0.0-0.8); MONO % 11.1 % (2.0-8.0); NEUTROPHILS # 4.2 10^3/uL (1.5-8.5); NEUTROPHILS % 52.6 % (36.0-66.0); PLATELET COUNT, AUTOMATED 287 10^3/uL (150-450); RED BLOOD COUNT 4.26 10^6/uL (4.30-6.10); WHITE BLOOD COUNT 8.1 10^3/uL (4.0-10.0)
[2024-07-16 17:07] LABS: ERYTHROCYTE SEDIMENTATION RATE 38 mm/hr (0-20)
[2024-07-16 17:12] LABS: C REACTIVE PROTEIN QUANTITATIV < 0.50 MG/DL (<1.0)
[2024-07-16 17:13] LABS: ALBUMIN 3.5 G/DL (3.2-5.2); ALKALINE PHOSPHATASE 131 U/L (40-129); ALT/SGPT 24 U/L (7.0-40); AST/SGOT 16 U/L (<34); BILIRUBIN,TOTAL 0.3 MG/DL (0.3-1.2); BLOOD UREA NITROGEN 30 MG/DL (9-23); CALCIUM LEVEL 9.3 MG/DL (8.3-10.6); CARBON DIOXIDE LEVEL 26 MMOL/L (20-31); CHLORIDE LEVEL 105 MMOL/L (98-107); CREATININE FOR GFR 1.42 MG/DL (0.70-1.30); GLOMERULAR FILTRATION RATE 50.8 (>35); GLUCOSE, FASTING 92 MG/DL (74-106); POTASSIUM SERUM 4.7 MMOL/L (3.5-5.1); SODIUM LEVEL 136 MMOL/L (136-145); TOTAL PROTEIN 7.4 G/DL (5.7-8.2)
== END ==
LOC: M SFHCRHEU 14:55
PROVIDERS: ATTEND Internal Medicine Rheumatology
DX: L40.50 Arthropathic psoriasis, unspecified (principal); M15.9 Polyosteoarthritis, unspecified; R76.8 Other specified abnormal immunological findings in serum; Z79.899 Other long term (current) drug therapy

== ENCOUNTER → 2024-10-16 | Outpatient (CLI) | payer MEDICARE, OTHER ==
[~2024-10-16] MED LIST changes: +PRED-1142 PO; -PRED1TABL PO
== END ==
LOC: M SOG 12:59
PROVIDERS: ATTEND Physician Assistant
DX: M25.521 Pain in right elbow (principal)

== ENCOUNTER 2025-03-02 15:15 | Inpatient (IN) | payer MEDICARE, OTHER ==
[2025-03-02] VITALS (22 sets, daily range): BP systolic 98–195; BP diastolic 25–89; TEMP 97.3–98.7; O2SAT 89–100
[~2025-03-02 15:15] MED LIST changes: -EQL50TAB2 PO; +VITA1TAB82 PO
[2025-03-02] MEDS: NS 500 ML IV ONE (16:01)
[2025-03-02 16:17] LABS: BASO # 0.0 10^3/uL (0.0-0.2); BASO % 0.2 % (0.0-1.0); EOS # 0.1 10^3/uL (0.0-0.5); EOS % 0.5 % (0.0-3.0); LYMPH # 1.7 10^3/uL (1.5-5.0); LYMPH % 12.8 % (24.0-44.0); MONO # 0.9 10^3/uL (0.0-0.8); MONO % 6.6 % (2.0-8.0); NEUTROPHILS # 10.5 10^3/uL (1.5-8.5); NEUTROPHILS % 79.2 % (36.0-66.0); PLATELET COUNT, AUTOMATED 310 10^3/uL (150-450)
[2025-03-02] MEDS ORDERED: ISOVUE-370 76% 100 ML VIAL As Ordered ONE (16:27)
[2025-03-02 16:34] LABS: CPK CREATINE PHOSPHOKINASE 46.0 U/L (46-171); INR 1.28
[2025-03-02 16:35] LABS: ALT/SGPT 21.0 U/L (7.0-40); AST/SGOT 15.0 U/L (<34); CALCIUM LEVEL 8.3 MG/DL (8.3-10.6); CARBON DIOXIDE LEVEL 23.0 MMOL/L (20-31); CHLORIDE LEVEL 102.0 MMOL/L (98-107); CK-MB VALUE MASS 3.4 NG/ML (<3.6); CREATININE FOR GFR 1.51 MG/DL (0.70-1.30); GLOMERULAR FILTRATION RATE 45.8 (>35); MB/CK RELATIVE INDEX 7.39 (< OR =4); POTASSIUM SERUM 4.5 MMOL/L (3.5-5.1); SODIUM LEVEL 134.0 MMOL/L (136-145)
[2025-03-02] MEDS: FACTOR XA,INACTIVATED-ZHZO 400 MG in APPROPRIATE DILUENT 40 ML IV ONE (17:22)
[2025-03-02] MEDS ORDERED: OCTREOTIDE ACETATE 100 MCG/ML VIAL **IV ADMINISTRATION ONLY IV ONE (17:35)
[2025-03-02] MEDS: FACTOR XA,INACTIVATED-ZHZO 480 MG in APPROPRIATE DILUENT 48 ML IV ONE (17:44)
[2025-03-02 17:49] LABS: CK-MB VALUE MASS 3.0 NG/ML (<3.6)
[2025-03-02 18:03] LABS: CPK CREATINE PHOSPHOKINASE 40.0 U/L (46-171); MB/CK RELATIVE INDEX 7.5 (< OR =4)
[2025-03-02] MEDS ORDERED: ETAN50SY SC (18:06)
[2025-03-02] MEDS ORDERED: LACO100T11 PO (18:09)
[2025-03-02] MEDS ORDERED: ELIQ2.5T PO (18:09)
[2025-03-02] MEDS ORDERED: FURO20TA2 PO (18:09)
[2025-03-02] MEDS ORDERED: BUPR-670 PO (18:09)
[2025-03-02] MEDS ORDERED: TAMS1CAP17 PO (18:09)
[2025-03-02] MEDS ORDERED: FERR32TA PO (18:09)
[2025-03-02] MEDS ORDERED: VITA100093 PO (18:10)
[2025-03-02] MEDS ORDERED: LEVE10003 PO (18:11)
[2025-03-02] MEDS ORDERED: HOME MED LIST COMPLETE! XX SCH (18:15)
[2025-03-02 19:44] LABS: BASO # 0.1 10^3/uL (0.0-0.2); BASO % 0.3 % (0.0-1.0); EOS # 0.1 10^3/uL (0.0-0.5); EOS % 0.4 % (0.0-3.0); LYMPH # 2.3 10^3/uL (1.5-5.0); LYMPH % 14.5 % (24.0-44.0); MONO # 1.5 10^3/uL (0.0-0.8); MONO % 9.1 % (2.0-8.0); NEUTROPHILS # 12.0 10^3/uL (1.5-8.5); NEUTROPHILS % 74.7 % (36.0-66.0); PLATELET COUNT, AUTOMATED 316 10^3/uL (150-450)
[2025-03-02] MEDS ORDERED: OCTREOTIDE ACETATE 1,200 MCG in NS 238.8 ML IV SCH (20:00)
[2025-03-02] MEDS: OCTREOTIDE ACETATE 100 MCG/ML VIAL **SC ADMINISTRATION ONLY SC SCH (20:48)
[2025-03-02] MEDS: PANTOPRAZOLE 40MG VIAL IV SCH (20:48)
[2025-03-02] MEDS: LACOSAMIDE 50 MG TAB PO SCH (20:49)
[2025-03-02] MEDS: TAMSULOSIN 0.4 MG CAP PO SCH (20:49)
[2025-03-03] VITALS (18 sets, daily range): BP systolic 95–161; BP diastolic 55–108; TEMP 97.2–98.3; O2SAT 91–99
[2025-03-03 00:43] LABS: PLATELET COUNT, AUTOMATED 284 10^3/uL (150-450)
[2025-03-03 04:36] LABS: PLATELET COUNT, AUTOMATED 238 10^3/uL (150-450)
[2025-03-03 05:05] LABS: ALT/SGPT 20.0 U/L (7.0-40); AST/SGOT 17.0 U/L (<34); CALCIUM LEVEL 8.3 MG/DL (8.3-10.6); CARBON DIOXIDE LEVEL 24.0 MMOL/L (20-31); CHLORIDE LEVEL 104.0 MMOL/L (98-107); CREATININE FOR GFR 1.42 MG/DL (0.70-1.30); GLOMERULAR FILTRATION RATE 49.3 (>35); MAGNESIUM LEVEL 1.7 MG/DL (1.8-2.4); POTASSIUM SERUM 4.8 MMOL/L (3.5-5.1); SODIUM LEVEL 134.0 MMOL/L (136-145)
[2025-03-03] MEDS: MAG SULF 1GM/100ML (MAG RUN) 1 GM in IV 1 EA IV ONE ×2 (05:32→15:41)
[2025-03-03 08:09] LABS: PLATELET COUNT, AUTOMATED 238 10^3/uL (150-450)
[2025-03-03] MEDS: ALPRAZolam 0.25 MG TAB PO ONE (09:00)
[2025-03-03 12:11] LABS: PLATELET COUNT, AUTOMATED 268 10^3/uL (150-450)
[2025-03-03] MEDS: dilTIAZem 120 MG **CD** CAPSULE PO SCH (15:36)
[2025-03-03] MEDS: ACETAMINOPHEN 325 MG TAB PO PRN (15:36)
[2025-03-03] MEDS: ALPRAZolam 0.5 MG TAB PO ONE (19:52)
[2025-03-04] VITALS: BP 132/60; TEMP 98.4; O2SAT 98
[2025-03-04 04:07] VITALS: BP 109/55; TEMP 98.7; O2SAT 96
[2025-03-04 04:46] LABS: PLATELET COUNT, AUTOMATED 248 10^3/uL (150-450)
[2025-03-04 05:20] LABS: CALCIUM LEVEL 8.1 MG/DL (8.3-10.6); CARBON DIOXIDE LEVEL 23.0 MMOL/L (20-31); CHLORIDE LEVEL 103.0 MMOL/L (98-107); CREATININE FOR GFR 1.31 MG/DL (0.70-1.30); GLOMERULAR FILTRATION RATE 54.4 (>35); POTASSIUM SERUM 4.4 MMOL/L (3.5-5.1); SODIUM LEVEL 136.0 MMOL/L (136-145)
[2025-03-04 08:00] VITALS: BP 122/65; TEMP 97.7; O2SAT 97
[2025-03-04 08:09] VITALS: BP 122/65
[2025-03-04] MEDS: VITAMIN D 1,000 INTERNATIONAL UNITS TABLET PO SCH (08:10)
[2025-03-04] MEDS: ALPRAZolam 0.5 MG TAB PO PRN (09:34)
[2025-03-04 10:45] LABS: KETONE, URINE AUTO RFX NEGATIVE (NEGATIVE); LEUKOCYTE ESTERASE UR AUTO RFX NEGATIVE (NEGATIVE); MUCUS, URINE RFX SMALL (NEGATIVE); NITRITE, URINE AUTO RFX NEGATIVE (NEGATIVE); RBC, URINE AUTO RFX 0 /HPF (0-3); SQUAM EPITHELIAL CELL UR AURFX 0 /HPF (0-6); WBC, URINE AUTO RFX 2 /HPF (0-3)
[2025-03-04] MEDS ORDERED: DILT120C89 PO (11:18)
[2025-03-04] MEDS ORDERED: LEVO1TAB40 PO (11:18)
[2025-03-04 12:00] VITALS: BP 139/79; TEMP 98.2; O2SAT 98
== END 2025-03-04 13:45 | disposition home or self-care (01) | DRG 378 ==
LOC: M ED 15:15 → EDBD 15:15 → M ED INP 18:06 → M ICU 19:39
PROVIDERS: ADMIT Internal Medicine Pulmonary Disease; ATTEND Internal Medicine
PROC: 30233N1 Transfusion of Nonautologous Red Blood Cells into Peripheral Vein, Percutaneous Approach (ICD-10-PCS; principal; 2025-03-02)
DX: K57.31 Diverticulosis of large intestine without perforation or abscess with bleeding (principal); D62 Acute posthemorrhagic anemia; E87.20 Acidosis, unspecified; J98.11 Atelectasis; K58.9 Irritable bowel syndrome, unspecified; G40.909 Epilepsy, unspecified, not intractable, without status epilepticus; F03.90 Unspecified dementia, unspecified severity, without behavioral disturbance, psychotic disturbance, mood disturbance, and anxiety; M06.9 Rheumatoid arthritis, unspecified; F41.9 Anxiety disorder, unspecified; N40.0 Benign prostatic hyperplasia without lower urinary tract symptoms; F32.A Depression, unspecified; I12.9 Hypertensive chronic kidney disease with stage 1 through stage 4 chronic kidney disease, or unspecified chronic kidney disease; N18.2 Chronic kidney disease, stage 2 (mild); E83.42 Hypomagnesemia; I48.0 Paroxysmal atrial fibrillation; M48.56XD Collapsed vertebra, not elsewhere classified, lumbar region, subsequent encounter for fracture with routine healing; Z79.01 Long term (current) use of anticoagulants; Z79.899 Other long term (current) drug therapy; Z87.891 Personal history of nicotine dependence

== ENCOUNTER → 2025-03-23 | Outpatient (CLI) | payer MEDICARE, OTHER ==
[~2025-03-23] MED LIST changes: +BUPR-670 PO; +DILT120C89 PO; +ELIQ2.5T; +ELIQ2.5T PO; +ETAN50SY SC; +FERR32TA PO; +FURO20TA2 PO; +LACO100T11 PO; +LEVE10003 PO; +LEVO1TAB40 PO; +TAMS1CAP17 PO; +VITA100093 PO
[2025-03-23 16:52] LABS: BASO # 0.1 10^3/uL (0.0-0.2); BASO % 0.4 % (0.0-1.0); EOS # 0.3 10^3/uL (0.0-0.5); EOS % 2.5 % (0.0-3.0); LYMPH # 2.8 10^3/uL (1.5-5.0); LYMPH % 20.4 % (24.0-44.0); MONO # 1.2 10^3/uL (0.0-0.8); MONO % 8.7 % (2.0-8.0); NEUTROPHILS # 8.5 10^3/uL (1.5-8.5); NEUTROPHILS % 63.1 % (36.0-66.0); PLATELET COUNT, AUTOMATED 582 10^3/uL (150-450)
[2025-03-23 17:15] LABS: C REACTIVE PROTEIN QUANTITATIV 4.14 MG/DL (<1.0)
[2025-03-23 17:16] LABS: ALT/SGPT 18.0 U/L (7.0-40); AST/SGOT 23.0 U/L (<34); CALCIUM LEVEL 8.5 MG/DL (8.3-10.6); CARBON DIOXIDE LEVEL 25.0 MMOL/L (20-31); CHLORIDE LEVEL 98.0 MMOL/L (98-107); CREATININE FOR GFR 1.31 MG/DL (0.70-1.30); GLOMERULAR FILTRATION RATE 54.4 (>35); IRON (FE) 22.0 UG/DL (65-175); PERCENT SATURATION 8.5 % (19.7-50.0); POTASSIUM SERUM 5.1 MMOL/L (3.5-5.1); SODIUM LEVEL 129.0 MMOL/L (136-145)
== END ==
LOC: M ADAMS 12:09
PROVIDERS: ATTEND Physician Assistant
DX: J15.8 Pneumonia due to other specified bacteria (principal); D64.9 Anemia, unspecified; K62.5 Hemorrhage of anus and rectum

== ENCOUNTER → 2025-05-17 | Outpatient (REF) | payer MEDICARE, OTHER ==
[2025-05-17 17:44] LABS: BASO # 0.0 10^3/uL (0.0-0.2); BASO % 0.3 % (0.0-1.0); EOS # 0.1 10^3/uL (0.0-0.5); EOS % 0.6 % (0.0-3.0); LYMPH # 1.9 10^3/uL (1.5-5.0); LYMPH % 13.6 % (24.0-44.0); MONO # 1.0 10^3/uL (0.0-0.8); MONO % 7.2 % (2.0-8.0); NEUTROPHILS # 11.0 10^3/uL (1.5-8.5); NEUTROPHILS % 77.9 % (36.0-66.0); PLATELET COUNT, AUTOMATED 348 10^3/uL (150-450)
[2025-05-17 18:09] LABS: C REACTIVE PROTEIN QUANTITATIV 1.08 MG/DL (<1.0)
[2025-05-17 18:10] LABS: ALT/SGPT 24.0 U/L (7.0-40); AST/SGOT 16.0 U/L (<34); CALCIUM LEVEL 9.2 MG/DL (8.3-10.6); CARBON DIOXIDE LEVEL 25.0 MMOL/L (20-31); CHLORIDE LEVEL 102.0 MMOL/L (98-107); CREATININE FOR GFR 1.28 MG/DL (0.70-1.30); GLOMERULAR FILTRATION RATE 55.9 (>35); POTASSIUM SERUM 5.2 MMOL/L (3.5-5.1); SODIUM LEVEL 138.0 MMOL/L (136-145)
== END ==
LOC: M SFHCADAM 11:50
PROVIDERS: ATTEND Internal Medicine Rheumatology
DX: R76.89 Other specified abnormal immunological findings in serum (principal)